=== PATIENT | male | born 1960 | race Caucasian/White ===

== ENCOUNTER → 2017-07-16 06:13 | Outpatient (CLI) | payer OTHER, SELFPAY ==
[2017-07-16 09:45] LABS: Anion Gap 9 (5-15); BUN 20 mg/dL (7-18); BUN/Creat Ratio 16.7 RATIO (10-20); Calcium,Total 8.6 mg/dL (8.5-10.1); Chloride 108 mmol/L (98-107); Cholesterol 205 mg/dL (200); EST Glomerular Filtration Rate 66 mL/min (>60); Est Glom Filt Rate - Afr Amer 80 mL/min (>60); Glucose 136 mg/dL (74-106); High Density Lipoprotein 41 mg/dL; Sodium Level 143 mmol/L (136-145); Triglycerides 169 mg/dL; Very Low Density Lipoprotein 34 mg/dL (5-40)
== END ==
PROVIDERS: Family Provider Family Medicine; PCP Family Medicine; Visit Provider Family Medicine
DX: I10 Essential (primary) hypertension (principal)
CPT/HCPCS: 36415; 80048; 80061

== ENCOUNTER → 2018-02-14 06:12 | Outpatient (CLI) | payer OTHER, SELFPAY ==
--- NOTE | 2018-02-14 06:15 | RAD_ITS ---
STUDY: X-RAY - ORBITS REASON FOR EXAM: Male, 57 years old. This study is being performed as a clearance examination for exclusion of orbital metal, prior to the performance of an MRI examination. TECHNIQUE: 2 view(s) of the orbits were obtained. COMPARISON: None. FINDINGS: Normal bilateral orbits without a metallic orbital foreign body. Normal visualized facial bones. Normal paranasal sinuses. The soft tissue structures are unremarkable. RAD/Orbits for Foreign Body IMPRESSION: No demonstrated metallic orbital foreign body. The patient is cleared for an MRI examination. Electronically Signed: Reese Mcgill MD at 7:09 EST Tel , Service support ,
--- NOTE | 2018-02-14 06:42 | MRI_ITS ---
STUDY: MRI UPPER EXTREMITY RIGHT HUMERUS WITHOUT CONTRAST REASON FOR EXAM: Right arm weakness and pain, attention biceps. TECHNIQUE: Standardized fat and water weighted pulse sequences were obtained in all 3 orthogonal planes. COMPARISON: Radiographs 01/17/2014. FINDINGS: Normal subcutis adipose space. There is no demonstrated solid, cystic, or lipomatous mass within the subcutaneous adipose space. Normal visualized muscles and fascia. Normal visualized neurovascular bundles. Normal humerus. Although the [id number] is not optimal for evaluation of the shoulder, there is a suspected full-thickness tear of the supraspinatus tendon (inversion recovery coronal images 11-13). There is also nonvisualization of the long biceps tendon and therefore suspected torn. The distal biceps tendon at the radial tuberosity insertion is not included in the [id number]. There are cysts of the right kidney (inversion recovery coronal images 12-16), the largest measuring 2.6 cm in greatest dimension. MRI/Upper Ext/No Jt/ wo IMPRESSION: Suspected tear of the long biceps tendon. Suspected tear of the supraspinatus tendon. Right renal cysts. Electronically Signed: Mauro Yip MD at 8:48 EST Tel , Service support ,
== END ==
PROVIDERS: Family Provider Family Medicine; PCP Family Medicine; Referring Provider Family Medicine; Visit Provider Family Medicine
DX: R29.898 Other symptoms and signs involving the musculoskeletal system (principal)
CPT/HCPCS: 70030; 73218

== ENCOUNTER → 2018-04-06 11:00 | Outpatient (CLI) | payer OTHER, SELFPAY ==
--- NOTE | 2018-04-06 11:09 | MRI_ITS ---
STUDY: MRI RIGHT SHOULDER REASON FOR EXAM: Pain from elbow to shoulder and decreased strength. TECHNIQUE: Standardized fat and water weighted pulse sequences were obtained in all 3 orthogonal planes. COMPARISON: Radiographs 01/17/2014. FINDINGS: There is supraspinatus tendinosis and a small full-thickness tear of the distal anterior supraspinatus tendon (T2 coronal image 14) measuring 0.7 to 0.8 cm in length and width. There is mild infraspinatus tendinosis (T2 coronal image 6) without discrete tendon tear. There is attenuation of the distal subscapularis tendon (proton-density axial images 15, 16). Normal teres minor tendon. There is very mild atrophy with very mild partial fat replacement of the distal supraspinatus and infraspinatus muscles (T2 sagittal images 5-7). Normal subscapularis muscle. Normal teres minor muscle. Normal glenohumeral articulation. Normal humeral head and visualized proximal humerus. There is suspected tear with nonvisualization of the intracapsular long biceps tendon. Normal labrum. Normal capsulo- ligamentous complex. There is acromioclavicular arthrosis without undersurface osteophytes (T2 sagittal image 10). There is a Type II morphology (curved), with a neutral orientation. There is a trace of subacromial-subdeltoid bursal fluid. Normal visualized coracohumeral and coracoacromial ligaments. Normal deltoid muscle. Normal trapezius muscle. MRI/Upper Ext Joint Only(Routine) IMPRESSION: Small full-thickness tear and tendinosis of the supraspinatus tendon. Attenuation of the subscapularis tendon. Mild infraspinatus tendinosis. Very mild atrophy of the supraspinatus and infraspinatus muscles. Suspected tear with nonvisualization of the intracapsular long biceps tendon. Acromioclavicular arthrosis. Electronically Signed: Mauro Yip MD at 12:21 EST Tel , Service support ,
== END ==
PROVIDERS: Family Provider Family Medicine; PCP Family Medicine; Referring Provider Orthopaedic Surgery; Visit Provider Orthopaedic Surgery
DX: M75.51 Bursitis of right shoulder (principal)
CPT/HCPCS: 73221

== ENCOUNTER → 2018-07-25 | Outpatient (CLI) | payer OTHER, SELFPAY ==
[2018-07-25 10:32] LABS: AST(SGOT) 15 U/L (15-37); Alanine Aminotransfer ALT/SGPT 27 U/L (16-61); Albumin, Serum 3.7 g/dL (3.2-5.0); Alkaline Phosphatase 55 U/L (45-117); Anion Gap 6 (5-15); BUN 14 mg/dL (7-18); BUN/Creat Ratio 12.5 RATIO (10-20); Bilirubin, Direct 0.16 mg/dL (0.00-0.30); Chloride 105 mmol/L (98-107); Cholesterol 212 mg/dL (200); Creatinine, Serum 1.12 mg/dL (0.70-1.30); EST Glomerular Filtration Rate 71 mL/min (>60); Est Glom Filt Rate - Afr Amer 86 mL/min (>60); Globulin 4.1 g/dL (2.2-4.2); Glucose 133 mg/dL (74-106); High Density Lipoprotein 45 mg/dL; Potassium 4.2 mmol/L (3.5-5.1); Protein, Total 7.8 g/dL (6.4-8.2); Sodium Level 139 mmol/L (136-145); Triglycerides 183 mg/dL; Very Low Density Lipoprotein 37 mg/dL (5-40)
[2018-07-25 10:42] LABS: Microalbumin:Creatinine Ratio 6.5 mg/g CRE (<30 mg/g CRE)
== END | disposition home or self-care (01) ==
LOC: MTLAB 07:18
PROVIDERS: Family Provider Family Medicine; PCP Family Medicine; Referring Provider Family Medicine; Visit Provider Family Medicine
DX: E11.9 Type 2 diabetes mellitus without complications (principal)
CPT/HCPCS: 36415; 80048; 80061; 80076; 82043; 82570

== ENCOUNTER → 2020-07-18 16:26 | Outpatient (CLI) | payer OTHER, SELFPAY ==
--- NOTE | 2020-07-18 16:30 | RAD_ITS ---
STUDY: X-RAY - LEFT SHOULDER REASON FOR EXAM: Male, 59 years old. LEFT SHOULDER PAIN TECHNIQUE: 4 view(s) of the shoulder. COMPARISON: None. FINDINGS: Normal glenohumeral articulation. There is degenerative arthrosis of the acromioclavicular joint without inferior osseous spur formation. Normal acromion. Normal humeral head and visualized proximal humerus. The soft tissue structures are unremarkable. Normal visualized pulmonary apex. RAD/Shoulder min 2 Views IMPRESSION: No acute findings Electronically Signed: Abdiel Owens DO at 22:38 EDT Tel , Service support ,
== END ==
PROVIDERS: PCP Family Medicine; Referring Provider Nurse Practitioner Family; Visit Provider Nurse Practitioner Family
DX: M25.512 Pain in left shoulder (principal)
CPT/HCPCS: 73030

== ENCOUNTER → 2020-07-25 11:04 | Outpatient (CLI) | payer OTHER, SELFPAY ==
[2020-07-22 08:07] VITALS: BMI 33.5
--- NOTE | 2020-07-25 11:15 | MRI_ITS ---
STUDY: MRI LEFT SHOULDER REASON FOR EXAM: Left shoulder pain, limited range of motion and limited strength after lifting injury 1 week ago. TECHNIQUE: Standardized fat and water weighted pulse sequences were obtained in all 3 orthogonal planes. COMPARISON: Radiographs 07/28/2020. FINDINGS: There is supraspinatus tendinosis (T2 coronal images 6-8) without discrete tendon tear. Normal infraspinatus tendon. There is an undersurface/intrasubstance partial-thickness tear of the distal superior subscapularis tendon with medial dislocation of the proximal extracapsular long biceps tendon (proton-density axial images 12, 13). Normal teres minor tendon. Normal supraspinatus muscle. Normal infraspinatus muscle. Normal subscapularis muscle. There is mild atrophy with mild partial fat replacement of the teres minor muscle (T2 sagittal images 1-5). There is a very small glenohumeral joint effusion. There is a small cyst in the greater tuberosity. Normal biceps labral complex. There is mild tendinosis of the intracapsular/proximal extracapsular long biceps tendon (proton-density coronal images 5, 6). There is bicipital tenosynovitis (proton-density axial images 16-20). Normal labrum. Normal capsulo- ligamentous complex. There is acromioclavicular arthrosis with mild hypertrophic changes effacing the subacromial fat (T2 sagittal image 8). There is a Type II morphology (curved), with a neutral orientation. There is subacromial-subdeltoid bursal fluid. Normal visualized coracohumeral and coracoacromial ligaments. Normal deltoid muscle. Normal trapezius muscle. MRI/Upper Ext Joint Only(Routine) IMPRESSION: Undersurface/intrasubstance partial-thickness tear of the distal superior subscapularis tendon with medial dislocation of the proximal extracapsular long biceps tendon. Supraspinatus tendinosis. Mild atrophy of the teres minor muscle. Mild tendinosis of the long biceps tendon, and bicipital tenosynovitis. Acromioclavicular arthrosis. Subacromial-subdeltoid bursitis. Very small glenohumeral joint effusion. Electronically Signed: Mauro Yip MD at 13:09 EDT Tel , Service support ,
== END ==
PROVIDERS: PCP Family Medicine; Referring Provider Nurse Practitioner Family; Visit Provider Nurse Practitioner Family
DX: M25.512 Pain in left shoulder (principal)
CPT/HCPCS: 73221

== ENCOUNTER 2020-08-20 17:30 | Outpatient (RCR) | payer OTHER, SELFPAY ==
--- NOTE | 2020-08-09 09:41 | HP.PTEVAL_ITS ---
Patient's Visit Information CARA PEOPLES is a 59 year old M referred to Physical Therapy by Dr. Glenn Grimm DO with a diagnosis of BICEPS SUBLUXATION, TENSOYNVITIS, SUBSCAPUALRS YEAR. Date of Evaluation: 08/09/20 Physical Therapist: Ryan Call, PT, Cert MDT, OCS - Visit Plan Frequency: 2x /Week Duration: 4 Weeks Plan: PT INTERVENTIONS RTC/SCAPULAR STRENGTHENING,ROM POSTURAL EX'S AND MODALTIES - Subjective This 59 y/o male presents to physical therapy subscapularis tear. Patient injured right shoulder lifting slab of concrete about 3 weeks ago felt a pop. Patient pain presistanted thus seen family DR then recommended Orthopedic consult and PT. Patient had MRI showed subscapularis tear. Patient pain located anterior to biceps . Patient pain worse with lifting OH and move to side ,reaching behind back and unable to lift any weight affects affects ADLS' and housework tasks. Patient sleeps in chair unable to be in bed. Denies parathesia/tingling. Patient takes pain MEDS. 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 SOCAIL: - Pain Left Shoulder Pain Intensity (Out of 10): 3 Pain Intensity Range: 10 - Objective POSTURE: mild foward posture ,rounded shoulders head foward. NEURO: intact. PALPITATION: tender AC. AROM: shoulder flexion 110 degrees ,abduction 110 degrees ,ER 80 degrees ,IR L4. PROM: shoulder flexion 160 degree,abduction 160 ,ER 80 degrees pain at ERP. MMT: subscapularis 4-/5,supraspinatus 4-/5 mild pain,infraspinatus ,deltoid 4-/5 - Special Tests L Shoulder Supine Impingement Test - RC Tear: Negative L Shoulder Lift Off Test - Subscapular Tear: Negative L Shoulder Drop Sign - IS Test: Negative L Shoulder Empty Can - SS: Positive L Shoulder Belly Press - SupScap: Negative L Shoulder Neer - Impingement: Positive L Shoulder [place] Casa - Impingement: Positive L Shoulder Shrug Sign - OA/Adhesive Capsulitis: Negative - Goals Goal 1:: I with HEP. Goal Time Frame: 4-6 Weeks Goal 2:: Patient to decrease pain 50% or > to improve function and job demands. Goal Time Frame: 4-6 Weeks Goal 3:: Patient to increase AROM shoulder flexion 150 degrees,150 degrees ,ER 90 and IR L2 to improve function Goal Time Frame: 4-6 Weeks Goal 4:: Patient to increase strength right RTC and deltoid 4/5 to improve function Goal Time Frame: 4-6 Weeks Goal 5:: Patient to improve quick dash by 5 points or > to improve function Goal Time Frame: 4-6 Weeks - Rehabilitation Potential Physical Therapy Diagnosis: This patient has tear subscapularus tear with pain ,decrease ROM ,strength impairs function and ADL'S/job demands thus will benifit from skilled PT. Rehabilitation Potential: Good - Anticipated Interventions Patient/Client Instruction: Educate patient on: Condition, Plan of Care For the Purpose of:: To decrease pain, To increase ROM, To improve muscle performance and motor function, To improve ability to perform ADL's, To increase tolerance to activity/condition/position, To improve performance and independence with ADL's, To improve ability of physical actions for home/community/work/leisure, To improve health of tissue, To decrease soft tissue restriction, To increase flexibility/ROM, To improve endurance Therapeutic Exercise to Include: Strength training, Postural training, Flexibilty training, Active ROM Comment: RTC/SCAPULAR For the Purpose of:: To decrease pain, To increase ROM, To improve muscle performance and motor function, To improve ability to perform ADL's, To increase tolerance to activity/condition/position, To improve performance and independence with ADL's, To improve ability of physical actions for steph e/community/work/leisure, To improve health of tissue, To decrease soft tissue restriction, To increase flexibility/ROM, To reduce risk of recurrence TENS: Yes IF ES: Yes Cryotherapy (ice pack, ice massage): Yes Thermo therapy (hot pack): Yes Ultrasound (thermal/non thermal): Yes For the Purpose of:: To decrease pain, To increase ROM, To improve nutrient delivery to tissue, To increase oxygenation perfusion, To improve health of tissue, To decrease soft tissue restriction Thank you for the opportunity to evaluate your patient. For Medicare and Medicare HMO plans, please review the plan of care and approve it. It will need to be FAXED BACK to us at [phone] for Medicare purposes. For Medicare only, by signing this I certify the plan of care. Please let me know if there are questions or concerns regarding this plan of care. Physician Signature: Date:
--- NOTE | 2021-01-10 13:06 | HP.PTDCNRP_ITS ---
CARA Patricia NATHENANDREE was seen in my office for initial evaluation on 08/09/20. The following Plan of Care was established for this patient: Initial Frequency: 2x /Week Initial Duration: 4 Weeks Patient/Client Instruction: Educate patient on: Condition, Plan of Care For the Purpose of:: To decrease pain, To increase ROM, To improve muscle performance and motor function, To improve ability to perform ADL's, To increase tolerance to activity/condition/position, To improve performance and independence with ADL's, To improve ability of physical actions for home/community/work/leisure, To improve health of tissue, To decrease soft tissue restriction, To increase flexibility/ROM, To improve endurance Therapeutic Exercise to Include: Strength training, Postural training, Flexibilty training, Active ROM For the Purpose of:: To decrease pain, To increase ROM, To improve muscle performance and motor function, To improve ability to perform ADL's, To increase tolerance to activity/condition/position, To improve performance and indepen dence with ADL's, To improve ability of physical actions for home/community/work/leisure, To improve health of tissue, To decrease soft tissue restriction, To increase flexibility/ROM, To reduce risk of recurrence TENS: Yes IF ES: Yes Cryotherapy (ice pack, ice massage): Yes Thermo therapy (hot pack): Yes Ultrasound (thermal/non thermal): Yes For the Purpose of:: To decrease pain, To increase ROM, To improve nutrient delivery to tissue, To increase oxygenation perfusion, To improve health of tissue, To decrease soft tissue restriction This patient was last seen in our office . Pertinent comments regarding their Physical therapy will appear below: Patient seen for PT for subscapularis tear ,subluxation for ROM/strengthening thus is d/c At this point I will be discontinuing this patient from physical therapy. I would be happy to see this patient again in the future if found appropriate by the physician. Thank you! Ryan Call, PT, Cert MDT, OCS Balance/Gait/Functional tests - Balance/Special Test Scores Quick DASH Score: 20.0000
== END 2020-08-20 19:00 | disposition home or self-care (01) ==
LOC: PT 17:30
PROVIDERS: PCP Family Medicine; Referring Provider Orthopaedic Surgery; Visit Provider Orthopaedic Surgery
DX: S46.819D Strain of other muscles, fascia and tendons at shoulder and upper arm level, unspecified arm, subsequent encounter (principal); X58.XXXD Exposure to other specified factors, subsequent encounter; M65.9 Synovitis and tenosynovitis, unspecified
CPT/HCPCS: 97110; 97162

== ENCOUNTER 2021-06-06 08:59 | Outpatient (CLI) | payer OTHER, SELFPAY ==
--- NOTE | 2021-06-06 09:03 | ART_ITS ---
Version 2 Reason For Study: Right foot ulcer, PVD Procedure A bilateral lower extremity continuous wave Doppler with analog waveform analysis,segmental pressures,and ankle brachial indexes without exercise. Left Segmental Pressures Left brachial= 145mmHg. Left posterior tibial artery = 206mmHg. Left dorsalis pedis artery = 189mmHg. Left digit = 154 mmHg. The left dorsalis pedis waveforms are triphasic. The left posterior tibial artery waveforms are triphasic. Right Segmental Pressures Right brachial= 151mmHg. Right posterior tibial artery = 210mmHg. Right dorsalis pedis artery = 179mmHg. Right digit = >254 mmHg. The right dorsalis pedis waveforms are triphasic. The right posterior tibial artery waveforms are triphasic. Indices The right ankle brachial index by the dorsalis pedis is 1.19. The right ankle brachial index by the posterior tibial artery is 1.39. The right digital-brachial index is NC. The left ankle brachial index by the dorsalis pedis is 1.25. The left ankle brachial index by the posterior tibial artery is 1.36. The left digital-brachial index is 1.02. . Rt digit pressure may be falsely elevated due to bandage on toe. VL/Lower Ext Art Exam w/o Exercis Interpretation Summary Triphasic Doppler waveforms are noted at ankle level bilaterally. Pulse-volume recordings appear satisfactory at all levels bilaterally, including low thigh, calf, ankle, and d igital levels. Resting ankle-brachial indices are normal bilaterally. The right digital-brachi al index could not be determined due to the non-compressibility of the vasculature at digital level o n the right. The left digital-brachial index is normal. There is evidence of arterial calcification at digital level on the right. Ther e is no evidence of significant arterial occlusive disease in the lower extremities bilaterally. Ordering Physician: Jasmin Jaime Referring Physician: Fernando Fu Performed By: Willinger, Yulia, RVT
== END 2021-06-06 23:59 | disposition home or self-care (01) ==
LOC: CVS 08:59
PROVIDERS: PCP Family Medicine; Referring Provider Podiatrist; Visit Provider Podiatrist
DX: I73.89 Other specified peripheral vascular diseases (principal); L97.512 Non-pressure chronic ulcer of other part of right foot with fat layer exposed; E11.42 Type 2 diabetes mellitus with diabetic polyneuropathy
CPT/HCPCS: 93923

== ENCOUNTER 2021-09-11 09:23 | Day surgery (SDC) | payer OTHER, SELFPAY ==
--- NOTE | 2021-09-03 06:27 | EKG12_ITS ---
Test Reason : PRE OP Blood Pressure : / mmHG Vent. Rate : 057 BPM Atrial Rate : 057 BPM P-R Int : 214 ms QRS Dur : 096 ms QT Int : 418 ms P-R-T Axes : 028 -10 043 degrees QTc Int : 406 ms Sinus bradycardia with 1st degree A-V block Otherwise normal ECG Confirmed by RADHA JEREZ, LOKI ([id number]), slot editor ARMANDO QUIROZ ([id number]) on 09/03/2021 1:26:27 PM Referred By: MONY Confirmed By:LOKI GARCIA MD
[2021-09-03 06:58] LABS: Hemoglobin 14.7 g/dL (13.0-16.5); Mean Corp Hgb Conc 33.4 g/dL (32-36); Mean Corpuscular Hgb 30.4 pg (27.0-32.0); Mean Corpuscular Volume 91.1 fL (80-94); Mean Platelet Vol. 9.5 fl (6.2-12.0); Platelet Count 283 K/mm3 (150-450); RBC Distribution Width CV 12.4 % (11.6-14.6); RBC Distribution Width SD 40.8 fl (35.1-43.9); Red Blood Count 4.83 M/mm3 (4.6-6.2); White Blood Count 7.2 K/mm3 (4.4-11.0)
[2021-09-03 07:31] LABS: Anion Gap 4 (5-15); BUN 23 mg/dL (7-18); Calcium,Total 9.2 mg/dL (8.5-10.1); Chloride 106 mmol/L (98-107); Creatinine, Serum 1.28 mg/dL (0.70-1.30); EST Glomerular Filtration Rate 61 mL/min (>60); Est Glom Filt Rate - Afr Amer 73 mL/min (>60); Glucose 177 mg/dL (74-106); Potassium 4.2 mmol/L (3.5-5.1); Sodium Level 137 mmol/L (136-145)
[2021-09-10 08:32] VITALS: BMI 34.0
--- NOTE | 2021-09-11 10:10 | PCM.HP.BLA ---
Documented by User: Dr. 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: No Is patient in pain?: No Allergies Wfnfbyd-EKC-RmR Reductase Inhibitor [Mtpaihm-Xdf-Tan Reductase Inhibitor] Allergy (Verified 07/21/21 07:58) Other Medications cholecalciferol (vitamin D3) 1,000 unit PO DAILY 02/26/14 [History Confirmed 07/21/21] metformin 1,000 mg PO BIDCM 02/26/14 [History Confirmed 07/21/21] ascorbate calcium (vitamin C) 500 mg tablet 500 mg PO DAILY 07/22/20 [History Confirmed 07/21/21] bupropion HCl 300 mg 24 hr tablet, extended release 300 mg PO QAM 07/22/20 [History Confirmed 07/21/21] multivitamin 1 tablet PO DAILY 07/22/20 [History Confirmed 07/21/21] omega-3 fatty acids 1,000 mg capsule 1,000 mg PO DAILY 07/22/20 [History Confirmed 07/21/21] calcium carbonate 600 mg calcium (1,500 mg) tablet 600 mg PO DAILY 07/21/21 [History Confirmed 07/21/21] diltiazem HCl 360 mg capsule,extended release 24 hr 240 mg PO DAILY cap 07/21/21 [History Confirmed 07/21/21] [facility] Medical History (Updated 07/21/21 @ 08:[address] Jimmy Mcmullen MD) DM type 2 (diabetes mellitus, type 2) HTN (hypertension) RLS (restless legs syndrome) Ruptured meckels diverticulum with sepsis Undescended testicle Surgical History (Updated 07/21/21 @ 07:55 by Missy Mcdonnell) History of gastric bypass History of nasal polypectomy History of testicular surgery History of tonsillectomy History of uvulectomy Family History Brother Cancer pancreatic cancer Father Diabetes Heart disease Hypertension Mother Hypertension Social History household members: spouse housing: house Smoking Status: Never smoker alcohol intake: current alcohol intake frequency: holidays/special occasions only what type of physical activity do you participate in: none do you feel safe at home: Yes HPI HPI HPI: CARA PEOPLES, is a 60 M who presents to the office today for surgical consultation regarding peripheral arterial occlusive disease. The patient is referred by Dr. Jasmin Jaime and a written copy of my surgical consult recommendations will return to her. The patient had a noninvasive study of his lower extremities on June 06, 2021 as noted below and does not demonstrate hemodynamically significant large vessel occlusive disease. 5 weeks the patient's had a nonhealing ulcer in the dorsum of his right great toe. He has some digital deformity bilaterally. This causes repetitive trauma to his toes. He states that this area has been more resistant to resolution. Looking back through [facility] records February 08, [address] the patient had a CT of the abdomen because of the left lower quadrant pain. Fatty change of the liver. Scattered atherosclerotic disease of the abdominal aorta but without aneurysm. He denies chest pain shortness of breath. Denies calf claudication. He admits to numbness of his forefeet distally. He does not check his blood sugars routinely. He thinks his most recent hemoglobin A1c was in the sevens. He has not seen his primary care physician Dr. Fernando Fu in a period of time. 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 Denies chest pain or shortness of breath. He denies any focal neurologic changes. June 06, 2021 Reason For Study: Right foot ulcer, PVD Procedure A bilateral lower extremity continuous wave Doppler with analog waveform analysis,segmental pressures,and ankle brachial indexes without exercise. Left Segmental Pressures Left brachial= 145mmHg. Left posterior tibial artery = 206mmHg. Left dorsalis pedis artery = 189mmHg. Left digit = 154 mmHg. The left dorsalis pedis waveforms are triphasic. The left posterior tibial artery waveforms are triphasic. Right Segmental Pressures Right brachial= 151mmHg. Right posterior tibial artery = 210mmHg. Right dorsalis pedis artery = 179mmHg. Right digit = >254 mmHg. The right dorsalis pedis waveforms are triphasic. The right posterior tibial artery waveforms are triphasic. Indices The right ankle brachial index by the dorsalis pedis is 1.19. The right ankle brachial index by the posterior tibial artery is 1.39. The right digital-brachial index is NC. The left ankle brachial index by the dorsalis pedis is 1.25. The left ankle brachial index by the posterior tibial artery is 1.36. The left digital-brachial index is 1.02. . Rt digit pressure may be falsely elevated due to bandage on toe. VL/Lower Ext Art Exam w/o Exercis Interpretation Summary Triphasic Doppler waveforms are noted at ankle level bilaterally. Pulse-volume recordings appear satisfactory at all levels bilaterally, including low thigh, calf, ankle, and digital levels. Resting ankle-brachial indices are normal bilaterally. The right digital-brachial index could not be determined due to the non-compressibility of the vasculature at digital level on the right. The left digital-brachial index is normal. There is evidence of arterial calcification at digital level on the right. There is no evidence of significant arterial occlusive disease in the lower extremities bilaterally. Ordering Physician: Jasmin Jaime Referring Physician: Fernando Fu Performed By: Yulia Hurtado RVT 06/06/21 1834Date Primitivo Joseph MD ROS General General: No weight change, appetite, fatigue, colon cancer, breast cancer or weakness HEENT HEENT: No difficulty swallowing, eye injury, eye surgery, swollen glands or hoarseness Endo Endocrine: Yes diabetes mellitus; No thyroid disease, thyroid cancer, Hair loss, heat intolerance or cold intolerance Skin Skin: No rash or changing moles Breast Breast: No left breast lump, right breast lump, nipple discharge, breast pain, abnormal mammogram, abnormal US or breast enlargement Musc Musculoskeletal: No back problems, arthritis, rheumatoid arthritis, gout or joint pain Cardio Cardiovascular: Yes high blood pressure; No murmur, pacemaker, heart disease, atrial fibrillation, heart attack, heart stent, palpitations, shortness of breat with exertion or chest pain Psych Psychiatric: Yes depression; No anxiety or hearing voices Resp Respiratory: No shortness of breath, No sleep apnea, No cough, No COPD, No asthma, No emphysema and No wheezing Gastro Gastrointestinal: No abdominal pain, No nausea or vomiting, No diarrhea, No constipation, No blood in stool, Yes acid reflux, No hemorrhoids, No ulcers, Yes gallbladder problem and No black,tarry stools Additional Details: History of gallstones without pain Shlomo Hematologic: No blood thinners, No blood disorders, No bleeding, No anemia and No blood clots Neuro Neurologic: No system reviewed and no additional complaints, except as documented, No as per HPI, No abnormal gait, No abnormal hearing, No abnormal movements, No abnormal speech, No behavioral changes, No burning sensations, No confusion, No convulsions, No disequilibrium, No dizziness, No localized weakness, No frequent falls, No headache(s), No lack of coordination, No loss of vision, No memory loss, Yes numbness, No other visual disturbances, No radicular pain, No restless legs, No sensory deficit, No syncope, Yes tingling, No tremor(s), No weakness and No other Exam Const General: cooperative, comfortable and no acute distress Nutritional Appearance: obese Orientation: alert, awake and oriented x3 HENMT Head: normal to inspection Eyes General: appearance normal, both eyes and all related structures Neck Neck: normal visual inspection Carotids: normal carotid upstroke and no bruits Chest Chest palpation & inspection: normal inspection of the chest Resp Effort & Inspection: normal respiratory effort Auscultation: clear to auscultation bilaterally Cardio Rate: regular rate Rhythm: regular rhythm Other: Bilateral radials 3+. Bilateral brachials 3+. Bilateral carotids 3+. No bruits Bilateral femorals 3+. Bilateral popliteals 3+. Bilateral DPs not palpable. Bilateral PTs 2-3+ GI Other: Soft, nontender, overweight, I cannot palpate the abdominal aorta. No bruit Musc Cervical Spine: normal cervical lordosis Skin Other: Dorsum right great toe DIP level has 3 punctate openings. There is hypertrophic scarring some erythema but no drainage Neuro Other: Diminished light touch sensation toes and forefoot Extrem Other: Bilateral elevation pallor and dependent rubor most noted at the digital level right greater than left Psych Appearance: grossly normal Assessment and Plan Assessment and Plan (1) PAOD (peripheral arterial occlusive disease): Status: Acute (2) Neuropathy: Status: Acute Plan - Dr. Jimmy Mcmullen MD: 60-year-old gentleman who has type 2 diabetes. States he does not routinely see his primary care physician. He now has a very slowly healing right dorsal great toe ulceration. This is likely complicated by neuropathy as well as ongoing pressure injury deformity of the toe and his foot apparel. There is some issue with medical compliance as far as seeing his physician and checking his blood sugars It is clear that the patient may have difficulty in resolving these chronic ulcerations. I do believe that it is reasonable to offer him a abdominal pelvic right lower extremity arteriogram retrograde access left common femoral artery with very careful inspection of the right tibialis anterior with hopes that endovascular intervention could be offered. As per protocol we would need to check renal function prior. He is aware of the technique, benefit, risk of alternatives. I cannot palpate his dorsalis pedis bilaterally. This may be secondary to calcification. He has had an opportunity to ask and have questions answered. He will check with his Rosemarie. He will recontact us as to how he would like us to proceed. I suspect that he might be a candidate for future corrective toe surgery. I have encouraged him to be more compliant with his primary care follow-up and establish a routine appointment with Dr. Fernando Fu. I appreciate the opportunity of assisting with the surgical care Copy: Dr. Fernando Fu and Dr.Jeanna Addison Mcmullen M.D., F.A.C.S. The patient states that he still has lack of complete healing of his right lower extremity wound. Because it is scabbed over he does not demonstrate concern. He has had an opportunity to ask and have questions answered. We will proceed as noted. Jimmy Mcmullen M.D., F.A.C.S. Documented by User: Kati CHRISTIANSON PA-C 09/11/21 10:26 History and Physical Date of Admission: 09/11/21 Patient is a 60 y/o M I am following for peripheral arterial occlusive disease and ulceration of right toe ulceration. He presents for an update history and physical. He denies any recent hospitalizations or illnesses since his last visit. He notes that the ulcerations of his right toe has healed. He denies any previous complications or side effects from anesthesia. Patient's previous history per Dr. 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 Required: No Is patient in pain?: No Allergies Gmdcter-GHI-RgE Reductase Inhibitor [Immbiob-Nzc-Rjd Reductase Inhibitor] Allergy (Verified 07/21/21 07:58) Other Medications cholecalciferol (vitamin D3) 1,000 unit PO DAILY 02/26/14 [History Confirmed 07/21/21] metformin 1,000 mg PO BIDCM 02/26/14 [History Confirmed 07/21/21] ascorbate calcium (vitamin C) 500 mg tablet 500 mg PO DAILY 07/22/20 [History Confirmed 07/21/21] bupropion HCl 300 mg 24 hr tablet, extended release 300 mg PO QAM 07/22/20 [History Confirmed 07/21/21] multivitamin 1 tablet PO DAILY 07/22/20 [History Confirmed 07/21/21] omega-3 fatty acids 1,000 mg capsule 1,000 mg PO DAILY 07/22/20 [History Confirmed 07/21/21] calcium carbonate 600 mg calcium (1,500 mg) tablet 600 mg PO DAILY 07/21/21 [History Confirmed 07/21/21] diltiazem HCl 360 mg capsule,extended release 24 hr 240 mg PO DAILY cap 07/21/21 [History Confirmed 07/21/21] [facility] Medical History (Updated 07/21/21 @ 08:[address] Jimmy Mcmullen MD) DM type 2 (diabetes mellitus, type 2) HTN (hypertension) RLS (restless legs syndrome) Ruptured meckels diverticulum with sepsis Undescended testicle Surgical History (Updated 07/21/21 @ 07:55 by Missy Mcdonnell) History of gastric bypass History of nasal polypectomy History of testicular surgery History of tonsillectomy History of uvulectomy Family History Brother Cancer pancreatic cancer Father Diabetes Heart disease Hypertension Mother Hypertension Social History household members: spouse housing: house Smoking Status: Never smoker alcohol intake: current alcohol intake frequency: holidays/special occasions only what type of physical activity do you participate in: none do you feel safe at home: Yes HPI HPI HPI: CARA PEOPLES, is a 60 M who presents to the office today for surgical consultation regarding peripheral arterial occlusive disease. The patient is referred by Dr. Jasmin Jaime and a written copy of my surgical consult recommendations will return to her. The patient had a noninvasive study of his lower extremities on June 06, 2021 as noted below and does not demonstrate hemodynamically significant large vessel occlusive disease. 5 weeks the patient's had a nonhealing ulcer in the dorsum of his right great toe. He has some digital deformity bilaterally. This causes repetitive trauma to his toes. He states that this area has been more resistant to resolution. Looking back through [facility] records February 08, [address] the patient had a CT of the abdomen because of the left lower quadrant pain. Fatty change of the liver. Scattered atherosclerotic disease of the abdominal aorta but without aneurysm. He denies chest pain shortness of breath. Denies calf claudication. He admits to numbness of his forefeet distally. He does not check his blood sugars routinely. He thinks his most recent hemoglobin A1c was in the sevens. He has not seen his primary care physician Dr. Fernando Fu in a period of time. 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 Denies chest pain or shortness of breath. He denies any focal neurologic changes. June 06, 2021 Reason For Study: Right foot ulcer, PVD Procedure A bilateral lower extremity continuous wave Doppler with analog waveform analysis,segmental pressures,and ankle brachial indexes without exercise. Left Segmental Pressures Left brachial= 145mmHg. Left posterior tibial artery = 206mmHg. Left dorsalis pedis artery = 189mmHg. Left digit = 154 mmHg. The left dorsalis pedis waveforms are triphasic. The left posterior tibial artery waveforms are triphasic. Right Segmental Pressures Right brachial= 151mmHg. Right posterior tibial artery = 210mmHg. Right dorsalis pedis artery = 179mmHg. Right digit = >254 mmHg. The right dorsalis pedis waveforms are triphasic. The right posterior tibial artery waveforms are triphasic. Indices The right ankle brachial index by the dorsalis pedis is 1.19. The right ankle brachial index by the posterior tibial artery is 1.39. The right digital-brachial index is NC. The left ankle brachial index by the dorsalis pedis is 1.25. The left ankle brachial index by the posterior tibial artery is 1.36. The left digital-brachial index is 1.02. . Rt digit pressure may be falsely elevated due to bandage on toe. VL/Lower Ext Art Exam w/o Exercis Interpretation Summary Triphasic Doppler waveforms are noted at ankle level bilaterally. Pulse-volume recordings appear satisfactory at all levels bilaterally, including low thigh, calf, ankle, and digital levels. Resting ankle-brachial indices are normal bilaterally. The right digital-brachial index could not be determined due to the non-compressibility of the vasculature at digital level on the right. The left digital-brachial index is normal. There is evidence of arterial calcification at digital level on the right. There is no evidence of significant arterial occlusive disease in the lower extremities bilaterally. Ordering Physician: Jasmin Jaime Referring Physician: Fernando Fu Performed By: Yulia Hurtado RVT 06/06/21 1834Date Primitivo Joseph MD ROS General General: No weight change, appetite, fatigue, colon cancer, breast cancer or weakness HEENT HEENT: No difficulty swallowing, eye injury, eye surgery, swollen glands or hoarseness Endo Endocrine: Yes diabetes mellitus; No thyroid disease, thyroid cancer, Hair loss, heat intolerance or cold intolerance Skin Skin: No rash or changing moles Breast Breast: No left breast lump, right breast lump, nipple discharge, breast pain, abnormal mammogram, abnormal US or breast enlargement Musc Musculoskeletal: No back problems, arthritis, rheumatoid arthritis, gout or joint pain Cardio Cardiovascular: Yes high blood pressure; No murmur, pacemaker, heart disease, atrial fibrillation, heart attack, heart stent, palpitations, shortness of breat with exertion or chest pain Psych Psychiatric: Yes depression; No anxiety or hearing voices Resp Respiratory: No shortness of breath, No sleep apnea, No cough, No COPD, No asthma, No emphysema and No wheezing Gastro Gastrointestinal: No abdominal pain, No nausea or vomiting, No diarrhea, No constipation, No blood in stool, Yes acid reflux, No hemorrhoids, No ulcers, Yes gallbladder problem and No black,tarry stools Additional Details: History of gallstones without pain Shlomo Hematologic: No blood thinners, No blood disorders, No bleeding, No anemia and No blood clots Neuro Neurologic: No system reviewed and no additional complaints, except as documented, No as per HPI, No abnormal gait, No abnormal hearing, No abnormal movements, No abnormal speech, No behavioral changes, No burning sensations, No confusion, No convulsions, No disequilibrium, No dizziness, No localized weakness, No frequent falls, No headache(s), No lack of coordination, No loss of vision, No memory loss, Yes numbness, No other visual disturbances, No radicular pain, No restless legs, No sensory deficit, No syncope, Yes tingling, No tremor(s), No weakness and No other Exam Const General: cooperative, comfortable and no acute distress Nutritional Appearance: obese Orientation: alert, awake and oriented x3 HENMT Head: normal to inspection Eyes General: appearance normal, both eyes and all related structures Neck Neck: normal visual inspection Carotids: normal carotid upstroke and no bruits Chest Chest palpation & inspection: normal inspection of the chest Resp Effort & Inspection: normal respiratory effort Auscultation: clear to auscultation bilaterally Cardio Rate: regular rate Rhythm: regular rhythm Other: Bilateral radials 3+. Bilateral brachials 3+. Bilateral carotids 3+. No bruits Bilateral femorals 3+. Bilateral popliteals 3+. Bilateral DPs not palpable. Bilateral PTs 2-3+ GI Other: Soft, nontender, overweight. No bruit Musc Cervical Spine: normal cervical lordosis Skin Other: Dorsum right great toe healed. Neuro Other: Diminished light touch sensation toes and forefoot Extrem Other: dependent rubor Psych Appearance: grossly normal Assessment & Plan Assessment/Plan (1) PAOD (peripheral arterial occlusive disease): PLAN: Dr. Mcmullen will polan to perform an abdominal pelvic right lower extremity arteriogram retrograde access left common femoral artery with inspection of the right tibialis anterior. Procedure details, risks and benefits have been reviewed. Patient and his have had the opportunity to ask and have questions answered. Patient verbally understands and agrees with the plan. Charges/Coding Visit Charges Inpatient E&M: 47465 Init Hosp L1 (No charge update H&P)
--- NOTE | 2021-09-11 11:33 | OP.PCM_ITS ---
Problems Associated Problem List Diagnoses (1) PAOD (peripheral arterial occlusive disease): Report of Operation Date of Procedure: 09/11/21 Pre-Operative Diagnosis: Great toe digital ulceration Post-Operative Diagnosis: Same Surgery/Procedure Performed:: Abdominal pelvic right lower extremity arteriogram Description of Surgical Findings:: Timeout informed consent was obtained. 60-y ear-old gentleman was taken to the special procedure lab placed on the table. Bilateral groins were sterilely prepped and draped. He received 50 mcg of fentanyl and 2 mg of Versed is intravenous sedation. Ultrasound was used to identify the left common femoral artery 2% lidocaine was instilled under ultrasound guidance micropuncture needle inserted under ultrasound guidance by puncture wire inserted micropuncture sheath inserted an 035 J-wire is inserted a 5 Slovenian short sheath was inserted and used then using an 035 angled Glidewire 5 Slovenian universal flush catheter was placed into the distal abdominal aorta. 15 cc a second 10 cc of Visipaque diluted contrast was used. Then access was gained to the right iliac system and using the Glidewire the flush catheter was advanced to the proximal right superficial femoral artery. Static views of the right lower extremity were obtained. The flush catheter was then advanced to approximately the mid thigh. Further views of the right lower extremity were obtained. The patient tolerated the procedure well. The catheter was removed over a wire. Sheath was removed by deploying a minx device. That was successful with good hemostasis. No apparent complication blood loss was minimal he tolerated procedure well was taken to the recovery room in satisfactory addition without apparent complication. Images demonstrate a patent distal abdominal aorta bilateral, iliacs bilateral internal iliacs. Bilateral common femorals are patent. The right common femoral profundofemoral superficial femoral patent throughout the right popliteal is patent. The right posterior tibial is the very dominant vessel all the way past the ankle with good dominant medial plantar flow with notably poor visualization of the digital vessels. The anterior tibial artery is patent though appears to be natively much smaller than the posterior tibial and after it crosses the ankle mortise filling of the distal dorsalis pedis and digital vessels was faint. The right peroneal is patent. There is no evidence of any focal large vessel occlusive disease of the right lower extremity. The patient is noted to have poor digital flow. Impression is one of distal small vessel disease not surgically treatable. Contrast utilized 30 cc Surgeon: Jimmy Mcmullen Type of Anesthesia: IV Sedation and Local
== END 2021-09-11 14:15 | disposition home or self-care (01) ==
PROVIDERS: PCP Family Medicine; Referring Provider Surgery; Visit Provider Surgery
DX: E11.51 Type 2 diabetes mellitus with diabetic peripheral angiopathy without gangrene (principal); E11.621 Type 2 diabetes mellitus with foot ulcer; L97.519 Non-pressure chronic ulcer of other part of right foot with unspecified severity; E11.40 Type 2 diabetes mellitus with diabetic neuropathy, unspecified; K76.0 Fatty (change of) liver, not elsewhere classified; I10 Essential (primary) hypertension; Z79.84 Long term (current) use of oral hypoglycemic drugs; Z98.84 Bariatric surgery status
CPT/HCPCS: 36200; 36245; 36415; 75625; 75630; 75710; 76937; 80048; 85027; 93005; 99152; 99153; C1760; J7030; Q9967; C1769

== ENCOUNTER 2021-10-12 10:00 | Inpatient (IN) | payer OTHER, SELFPAY ==
[2021-10-12 10:01] VITALS: BP 120/91; PULSE 91; RESP 16; TEMP 36.2; O2SAT 97; BMI 30.7
--- NOTE | 2021-10-12 10:25 | RAD_ITS ---
STUDY: X-RAY - RIGHT FOOT CLINICAL: Male, 60 years old. Infection TECHNIQUE: 3 view(s) of the foot. COMPARISON: 08/13/2015 right ankle images FINDINGS: There is an enthesophyte involving the posterior superior calcaneus at the site of insertion of the Achilles tendon. There are degenerative changes of the midfoot. Normal metatarsi. There is degenerative arthrosis of the metatarsophalangeal joint of the hallux . There is degenerative arthrosis of the interphalangeal joint of the great toe. Normal phalanges of the great toe. There is diffuse soft tissue swelling of the great toe. Normal second through fifth metatarsophalangeal joints. There are degenerative changes of the interphalangeal joints of the lesser toes. The soft tissue structures are unremarkable. RAD/Foot min 3 Views IMPRESSION: Degenerative changes. Electronically Signed: Laxmi Luque MD at 11:32 EDT ,
--- NOTE | 2021-10-12 10:25 | VDLE_ITS ---
Reason For Study: Swelling RIGHT GSV is normal. CFV is compressible, spontaneous, phasic, competent and demonstrates normal augmentation. FV is compressible, spontaneous, phasic, competent and demonstrates normal augmentation. POP V is compressible, spontaneous, phasic, competent and demonstrates normal augmentation. T/P Trunk is compressible. PTV is compressible. RT PerV is compressible. Procedure This is a venous duplex using B-mode, color flow and spectral Doppler. Exam performed portable in ED. A preliminary report was called and/or faxed to Dr. Polk. VL/Venous Duplex US, Unilateral Interpretation Summary There is no evidence of right lower extremity deep vein thrombosis. Right great saphenous vein appears patent and compressible segmentally. Ordering Physician: Jamia Polk Referring Physician: Fernando Fu Performed By: Tatiana Brand, BRANDAN, RVT
--- NOTE | 2021-10-12 10:28 | EDS_ITS ---
HPI History of Present Illness Chief Complaint: Cellulitis Detail of Chief Complaint: Right great toe infection Informant: patient Onset/Context/Timing Onset: - (Worsened over the last 3 days) Current Severity: Moderate Maximum Severity: Moderate Narrative Narrative: Patient presents secondary to right great toe infection. He is a diabetic and has neuropathy. He has had a wound on the right great toe that he has been following with Dr. Jaime for. states it was actually healed fairly well. He underwent a procedure with Dr. Mcmullen secondary to peripheral artery disease. There was no vessel amenable to stents. Over the last 2-1/2 days patient's right great toe wound has greatly worsened. He initially had lymphangitic streaking and now has more generalized redness on the foot with toe swelling. He has not noticed any pus draining from the wound. He had a temperature last night of 100.4 after taking Tylenol. [facility] Medical History DM type 2 (diabetes mellitus, type 2) HTN (hypertension) RLS (restless legs syndrome) Ruptured meckels diverticulum with sepsis Undescended testicle Home Medications cholecalciferol (vitamin D3) 25 mcg (1,000 unit) tablet 1,000 unit PO DAILY 02/26/14 [History Last Taken Unknown] metformin 1,000 mg tablet 1,000 mg PO BIDCM 02/26/14 [History Last Taken 09/10/21] ascorbate calcium (vitamin C) 500 mg tablet 500 mg PO DAILY 07/22/20 [History Last Taken Unknown] bupropion HCl 300 mg 24 hr tablet, extended release (Wellbutrin XL) 300 mg PO QAM 07/22/20 [History Last Taken Unknown] multivitamin (Multiple Vitamins) 1 tablet PO DAILY 07/22/20 [History Last Taken 09/11/21] omega-3 fatty acids 1,000 mg capsule (Fish Oil Concentrate) 1,000 mg PO DAILY 07/22/20 [History Last Taken Unknown] calcium carbonate 600 mg calcium (1,500 mg) tablet 600 mg PO DAILY 07/21/21 [History Last Taken Unknown] diltiazem HCl 360 mg capsule,extended release 24 hr 240 mg PO DAILY 07/21/21 [History Last Taken 09/10/21] pentoxifylline 400 mg tablet,extended release 400 mg PO TID #270 tabs 09/11/21 [Rx Last Taken Unknown] Allergy/AdvReac Type Severity Reaction Status Date / Time Xgxghfn-Khh-Qbc Reductase Allergy Other Verified 10/12/21 10:03 Inhibitor Family History Brother Cancer pancreatic cancer Father Diabetes Heart disease Hypertension Mother Hypertension Surgical History History of angioplasty of peripheral vessel History of gastric bypass History of nasal polypectomy History of testicular surgery History of tonsillectomy History of uvulectomy Social History household members: spouse housing: house Smoking Status: Never smoker alcohol intake: current alcohol intake frequency: holidays/special occasions only what type of physical activity do you participate in: none do you feel safe at home: Yes ROS ROS ED Constitutional Constitutional ED: Reports fever(s); Denies chills Eyes Eyes: Denies change in vision or discharge from eye(s) ENT ENT ED: Denies discharge from eye(s), rhinorrhea or sore throat Cardiovascular Cardiovascular: Denies chest pain or palpitations Respiratory/Chest Respiratory/Chest: Denies cough or dyspnea Gastrointestinal Gastrointestinal: Denies abdominal pain, diarrhea, nausea or vomiting Genitourinary Genitourinary ED: Denies difficulty urinating or dysuria Musculoskeletal Musculoskeletal: Reports extremity pain; Denies back pain Integumentary Reports other Details: Right great toe wound ; Denies Abrasions or rash Neurologic Neurologic: Denies headache(s) or weakness Allergic/Immunologic Allergic/Immunologic ED: Denies lip swelling or urticaria EXAM Physical Exam Const Vital Signs: 10/12/21 10:01 10/12/21 10:34 Temperature 97.2 F L Temperature Source Temporal Pulse Rate 91 Respiratory Rate 16 Respiratory Pattern Normal Blood Pressure 120/91 H Blood Pressure Mean 100 Pulse Ox 97 Oxygen Delivery Method Room Air Positive well nourished and well developed General Appearance ED: well developed HEENT Reports normocephalic and head/scalp atraumatic Eyes PERRL and EOMs intact bilaterally Neck supple Chest Wall inspection of chest normal and palpation of chest normal Resp normal respiratory effort and clear to auscultation bilaterally Cardio regular rate and regular rhythm GI normal to inspection, nondistended, normoactive bowel sounds Palpation: soft Extremity Extremity Narrative: Skin ulceration with edema noted to the right great toe. No drainage at this time. Erythema consistent with cellulitis over the top of the right foot. No lymphangitic streaking noted at this time. Mild calf tenderness. Neuro oriented x3 and no sensory deficits noted Sensorium / Orientation: alert Motor Exam: strength 5/5 throughout Psych mental status grossly normal Skin Skin Narrative: Right foot wound as above MDM MDM MDM Narrative Medical decision making narrative: Lab work, cultures, x-ray of the right foot obtained. Venous ultrasound of the right leg obtained. Lab Data Attestation: I reviewed the patient's lab results. Labs: Laboratory Results - last 24 hr 10/12/21 10/12/21 10/12/21 10:55 10:55 10:55 WBC 14.4 H RBC 4.58 L Hgb 14.1 Hct 42.0 MCV 91.7 MCH 30.8 MCHC 33.6 RDW Std Deviation 42.3 RDW Coeff of Fabian 12.7 Plt Count 291 MPV 9.6 Immature Gran % (Auto) 0.600 Neut % (Auto) 77.1 H Lymph % (Auto) 14.0 L Sunflower % (Auto) 7.0 Eos % (Auto) 1.0 Baso % (Auto) 0.3 Absolute Neuts (auto) 11.1 H Absolute Lymphs (auto) 2.02 Nucleated RBC % 0 Sodium 136 Potassium 4.3 Chloride 101 Carbon Dioxide 26.0 Anion Gap 9 BUN 21 H Creatinine 1.17 Estim Creat Clear Calc 68.46 Est GFR (MDRD) Af Amer 81 Est GFR (MDRD) Non-Af 67 BUN/Creatinine Ratio 17.9 Glucose 217 H Lactic Acid 1.0 Calcium 9.6 Radiography Diagnostic Testing: Clinical Impression(s) from Imaging Studies Foot X-Ray 10/12/21 10:25 IMPRESSION: Degenerative changes. Electronically Signed: Laxmi Luque MD at 11:32 EDT , Treatment and Re-Evaluation Narrative: White blood cell count elevated at 14.4 with slight left shift. Chemistry studies unremarkable. Lactic acid is normal. Right foot x-rays per my interpretation reveal no bony destruction. Soft tissue swelling is noted. Radiology interpretation is reviewed. After initially declining anything for pain he did request some analgesics. He is given a dose of morphine and Zofran. He has been started on Zosyn and vancomycin. Venous ultrasound of the right lower extremity reveals no evidence of DVT. I will speak with podiatry and hospitalist for admission. Discharge Plan Triage Chief Complaint: Cellulitis ED Provider: Jamia Polk Dx/Rx/DC Orders Clinical Impression: Diabetic foot infection Prescriptions: No Action multivitamin [Multiple Vitamins] Tablet 1 tablet PO DAILY ascorbate calcium (vitamin C) 500 mg tablet 500 mg PO DAILY bupropion HCl [Wellbutrin XL] 300 mg tablet extended release 24 hr 300 mg PO QAM omega-3 fatty acids [Fish Oil Concentrate] 1,000 mg capsule 1,000 mg PO DAILY calcium carbonate 600 mg calcium (1,500 mg) tablet 600 mg PO DAILY metformin 1,000 MG tablet 1,000 mg PO BIDCM cholecalciferol (vitamin D3) 1,000 UNIT tablet 1,000 unit PO DAILY diltiazem HCl 360 mg capsule,extended release 24hr 240 mg PO DAILY pentoxifylline 400 mg tablet extended release 400 mg PO TID Qty: 270 3RF Rx Instructions: must administer with a meal/food Primary Care Provider: Fernando Fu Referrals: Fernando Fu MD [Primary Care Provider] - Disposition Disposition: Acute Care Hospital [facility]
[2021-10-12 11:03] LABS: Absolute Lymphocyte Count 2.02 X10^3/uL (0.83-4.51); Absolute Neutrophil Count 11.1 X10^3/uL (2.0-7.7); Basophil# 0.05 X10^3/uL; Basophil% 0.3 % (0-1); Eosinophil# 0.14 X10^3/uL; Hemoglobin 14.1 g/dL (13.0-16.5); Lymphocyte # 2.02 X10^3/ul (0.83-4.51); Mean Corp Hgb Conc 33.6 g/dL (32-36); Mean Corpuscular Hgb 30.8 pg (27.0-32.0); Mean Corpuscular Volume 91.7 fL (80-94); Mean Platelet Vol. 9.6 fl (6.2-12.0); Monocyte# 1.01 X10^3/uL; NRBC Flagged by Analyzer 0 % (0-5); Neutrophil # 11.07 X10^3/uL (2.7-7.7); Neutrophil % 77.1 % (47-70); Platelet Count 291 K/mm3 (150-450); RBC Distribution Width CV 12.7 % (11.6-14.6); RBC Distribution Width SD 42.3 fl (35.1-43.9); Red Blood Count 4.58 M/mm3 (4.6-6.2); White Blood Count 14.4 K/mm3 (4.4-11.0)
[2021-10-12 11:18] LABS: Anion Gap 9 (5-15); BUN 21 mg/dL (7-18); BUN/Creat Ratio 17.9 RATIO (10-20); Calcium,Total 9.6 mg/dL (8.5-10.1); Chloride 101 mmol/L (98-107); Creatinine, Serum 1.17 mg/dL (0.70-1.30); EST Glomerular Filtration Rate 67 mL/min (>60); Est Glom Filt Rate - Afr Amer 81 mL/min (>60); Estimated Creatinine Clearance 68.46 ml/min; Glucose 217 mg/dL (74-106); Potassium 4.3 mmol/L (3.5-5.1); Sodium Level 136 mmol/L (136-145)
[2021-10-12] MEDS: 0.9% Normal Saline 1,000 ML 150 ML IV ×3 (11:23→23:17)
[2021-10-12 12:03] VITALS: BP 129/81; PULSE 80; RESP 16; TEMP 36.6; O2SAT 97
[2021-10-12] MEDS: Morphine 4 MG/ML Syringe IV (12:05)
[2021-10-12] MEDS: Ondansetron 4 MG/2 ML Vial IV (12:05)
--- NOTE | 2021-10-12 13:27 | HP.PCM.HOS_ITS ---
Documented by User: Jo Martínez NP, [employer] 10/12/21 13:51 HPI - General General Date of Admission: 10/12/21 Date of Service: 10/12/21 Chief Complaint: Right great toe infection. HPI Narrative CARA PEOPLES, is a 60 M who presents to the emergency room due to right great toe infection. Patient states he has had a small wound on the top of his right great toe for some time now which has been followed by podiatry and has not been a concern as it has been overall healed/stable. On into Wednesday, michaela durbin states that area opened up and from Wednesday night until today his toe doubled in size with notable increased redness and drainage. He reports initial red streaking down his foot however now has diffuse redness of his right foot as well. He reports fever last night greater than 100 F. Denies nausea, vomiting. Reports shooting pain down his right foot. He took an extra gabapentin which d id not help his pain. Patient underwent recent diagnostic right lower extremity arteriogram by Dr. Mcmullen 09/11/21 in an attempt to help heal great toe ulceration. There was no noted treatable large vessel disease, felt to be severe distal small vessel disease. He was placed on pentoxifylline. He has a past medical history of type 2 diabetes mellitus with neuropathy, hypertension, PAOD. [facility] Medical History DM type 2 (diabetes mellitus, type 2) HTN (hypertension) RLS (restless legs syndrome) Ruptured meckels diverticulum with sepsis Undescended testicle Home Medications cholecalciferol (vitamin D3) 25 mcg (1,000 unit) tablet 1,000 unit PO DAILY supplement 02/26/14 [History Last Taken Unknown] metformin 1,000 mg tablet 1,000 mg PO BIDCM diabetes 02/26/14 [History Last Taken 09/10/21] ascorbate calcium (vitamin C) 500 mg tablet 500 mg PO DAILY vitamin 07/22/20 [History Last Taken Unknown] bupropion HCl 300 mg 24 hr tablet, extended release (Wellbutrin XL) 300 mg PO QAM mood 07/22/20 [History Last Taken Unknown] multivitamin (Multiple Vitamins) 1 tablet PO DAILY vitamin 07/22/20 [History Last Taken 09/11/21] omega-3 fatty acids 1,000 mg capsule (Fish Oil Concentrate) 1,000 mg PO DAILY vitamin 07/22/20 [History Last Taken Unknown] calcium carbonate 600 mg calcium (1,500 mg) tablet 600 mg PO DAILY supplement 07/21/21 [History Last Taken Unknown] diltiazem HCl 360 mg capsule,extended release 24 hr 240 mg PO DAILY heart 07/21/21 [History Last Taken 09/10/21] pentoxifylline 400 mg tablet,extended release 400 mg PO TID circulation 10/12/21 [History Last Taken Unknown] Allergy/AdvReac Type Severity Reaction Status Date / Time Fbewyug-AWS-EeK Reductase Allergy Other Verified 10/12/21 10:03 Inhibitor [Mzspxqi-Gjz-Sqd Reductase Inhibitor] Family History Brother Cancer pancreatic cancer Father Diabetes Heart disease Hypertension Mother Hypertension Surgical History History of angioplasty of peripheral vessel History of gastric bypass History of nasal polypectomy History of testicular surgery History of tonsillectomy History of uvulectomy Social History household members: spouse housing: house Smoking Status: Never smoker alcohol intake: current alcohol intake frequency: holidays/special occasions only what type of physical activity do you participate in: none do you feel safe at home: Yes ROS Constitutional Constitutional: Reports fever(s); Denies change in weight, chills, fatigue or weakness Cardiovascular Cardiovascular: Denies chest pain, lightheadedness, palpitations or syncope Respiratory/Chest Respiratory/Chest: Denies cough, dyspnea, productive cough, shortness of breath at rest, shortness of breath with exertion or wheezing Gastrointestinal Gastrointestinal: Denies abdominal pain, constipation, diarrhea, nausea or vomiting Genitourinary Genitourinary: Denies burning urination, difficulty urinating, dysuria, hematuria, urinary frequency, urinary incontinence or urinary urgency Musculoskeletal Musculoskeletal: Denies back pain, joint pain or muscle weakness Integumentary Integumentary: Reports other Details: Right great toe wound with surrounding toe and foot erythema ; Denies erythema, lesions or rash Neurologic Neurologic: Denies abnormal speech, confusion, dizziness, focal weakness, numbness, paresthesias, seizure-like activity or syncope Psychiatric Psychiatric: Denies anxiety or depression Hematologic/Lymphatic Hematologic/Lymphatic: Denies anemia, easy bleeding or easy bruising Allergic/Immunologic Allergic/Immunologic: Denies hives or asthma Vital Signs Vital Signs Vital Signs: 10/12/21 10:01 10/12/21 10:34 10/12/21 12:03 Temperature 97.2 F L 97.8 F Temperature Source Temporal Oral Pulse Rate 91 80 Respiratory Rate 16 16 Respiratory Pattern Normal Blood Pressure 120/91 H 129/81 H Blood Pressure Mean 100 97 Pulse Ox 97 97 Oxygen Delivery Method Room Air Room Air 10/12/21 12:03 Temperature 97.8 F Temperature Source Oral Pulse Rate 80 Respiratory Rate 16 Respiratory Pattern Blood Pressure 129/81 H Blood Pressure Mean 97 Pulse Ox 97 Oxygen Delivery Method Room Air Weight Weight: 214 lb Body Mass Index (BMI) 30.7 Physical Exam Const alert, oriented x3 and no apparent distress Orientation / Consciousness: awake, oriented to person, oriented to place and oriented to time HEENT normocephalic and moist oral mucous membranes Eyes PERRL, EOMs intact bilaterally and conjunctivae normal Neck no lymphadenopathy Resp normal respiratory effort and clear to auscultation bilaterally Cardio regular rate, regular rhythm and no murmurs Peripheral Pulses: pulses 2+ throughout GI normal to inspection, nondistended, normoactive bowel sounds, non-tender and non-distended Extremity normal to inspection Skin Skin Narrative: Right great toe ulceration/wound with surrounding erythema extending to top of right foot. Right great toe significantly edematous. Lesions: no lesions Rashes: no rashes Trauma: no lacerations or abrasions Neuro CN's II-XII intact bilaterally, no focal motor deficits, no sensory deficits noted and deep tendon reflexes 2+ bilaterally Psych mental status grossly normal and affect normal Results Lab / Micro Data Result Diagrams: 10/12/21 10:55 10/12/21 10:55 Labs: Laboratory Results - last 24 hr 10/12/21 10:55: WBC 14.4 H, RBC 4.58 L, Hgb 14.1, Hct 42.0, MCV 91.7, MCH 30.8, MCHC 33.6, RDW Std Deviation 42.3, RDW Coeff of Fabian 12.7, Plt Count 291, MPV 9.6, Immature Gran % (Auto) 0.600, Neut % (Auto) 77.1 H, Lymph % (Auto) 14.0 L, Estill % (Auto) 7.0, Eos % (Auto) 1.0, Baso % (Auto) 0.3, Absolute Neuts (auto) 11.1 H, Absolute Lymphs (auto) 2.02, Nucleated RBC % 0 10/12/21 10:55: Sodium 136, Potassium 4.3, Chloride 101, Carbon Dioxide 26.0, Anion Gap 9, BUN 21 H, Creatinine 1.17, Estim Creat Clear Calc 68.46, Est GFR (MDRD) Af Amer 81, Est GFR (MDRD) Non-Af 67, BUN/Creatinine Ratio 17.9, Glucose 217 H, Calcium 9.6 10/12/21 10:55: Lactic Acid 1.0 Radiology Impression Foot X-Ray 10/12/21 10:25 IMPRESSION: Degenerative changes. Electronically Signed: Laxmi Luque MD at 11:32 EDT , Assessment & Plan Assessment/Plan (1) Diabetic foot infection: PLAN: Plan 1. Right great toe cellulitis secondary to right great toe neuropathic wound- podiatry consulted. IV vancomycin and IV Zosyn. Obtain wound culture. Blood cultures pending. As needed pain regimen. Wound RN consult. 2. Type 2 diabetes mellitus with neuropathy-hold oral regimen. Accu-Cheks with sliding scale insulin. 3. Hypertension- on Cardizem. 4. PAOD- on pentoxifylline. Follows with vascular. DVT prophylaxis-Lovenox subcu This patient was seen by SERA Medina under the supervision of Dr. Chang. Time spent examining patient, reviewing data and subsequent management of care: 23 minutes Documented by User: Dr. Pete Chang, 10/12/21 15:18 HPI - General General Date of Admission: 10/12/21 [facility] Medical History DM type 2 (diabetes mellitus, type 2) HTN (hypertension) RLS (restless legs syndrome) Ruptured meckels diverticulum with sepsis Undescended testicle Home Medications cholecalciferol (vitamin D3) 25 mcg (1,000 unit) tablet 1,000 unit PO DAILY supplement 02/26/14 [History Last Taken Unknown] metformin 1,000 mg tablet 1,000 mg PO BIDCM diabetes 02/26/14 [History Last Taken 09/10/21] ascorbate calcium (vitamin C) 500 mg tablet 500 mg PO DAILY vitamin 07/22/20 [History Last Taken Unknown] bupropion HCl 300 mg 24 hr tablet, extended release (Wellbutrin XL) 300 mg PO QAM mood 07/22/20 [History Last Taken Unknown] multivitamin (Multiple Vitamins) 1 tablet PO DAILY vitamin 07/22/20 [History Last Taken 09/11/21] omega-3 fatty acids 1,000 mg capsule (Fish Oil Concentrate) 1,000 mg PO DAILY vitamin 07/22/20 [History Last Taken Unknown] calcium carbonate 600 mg calcium (1,500 mg) tablet 600 mg PO DAILY supplement 07/21/21 [History Last Taken Unknown] diltiazem HCl 360 mg capsule,extended release 24 hr 240 mg PO DAILY heart 07/21/21 [History Last Taken 09/10/21] pentoxifylline 400 mg tablet,extended release 400 mg PO TID circulation 10/12/21 [History Last Taken Unknown] Allergy/AdvReac Type Severity Reaction Status Date / Time Epeboul-KRD-IkH Reductase Allergy Other Verified 10/12/21 10:03 Inhibitor [Asitpop-Qzs-Gjr Reductase Inhibitor] Family History Brother Cancer pancreatic cancer Father Diabetes Heart disease Hypertension Mother Hypertension Surgical History History of angioplasty of peripheral vessel History of gastric bypass History of nasal polypectomy History of testicular surgery History of tonsillectomy History of uvulectomy Social History (Reviewed 10/12/21 @ 13:40 by Jo Mauricio [employer], [employer]) household members: spouse housing: house Smoking Status: Never smoker alcohol intake: current alcohol intake frequency: holidays/special occasions only what type of physical activity do you participate in: none do you feel safe at home: Yes Results Lab / Micro Data Result Diagrams: 10/12/21 10:55 10/12/21 10:55 Assessment & Plan Assessment/Plan (1) Diabetic foot infection: Charges/Coding Addendum Addendum: Patient was seen and examined today independently of Jo Martínez, he came to the emergency room today at [facility] with complaints of swelling and redness over his right great toe. He stated that the toe became swollen and reddened over the last 3 days, he did not come to the ER for medical attention however. Patient has a history of type 2 diabetes, diabetic neuropathy, and small vessel disease of his feet. Patient recently had an arteriogram of the right lower extremity which showed no large vessel disease. Work-up in the emergency room included labs which were remarkable for a white blood cell count of 14.4, patient's blood sugar was 217, and BUN was 21. The remainder of his labs were unremarkable. Podiatry was contacted (Dr. Jay), he came to the emergency room to evaluate the patient's right great toe and attempted to drain the area, incisions however did not result in any purulent material being expelled from the toe. On examination he appeared in good health and spirits. Vital signs as documented. Skin-there is noted to be extreme swelling of the patient's right great toe along with redness and warmth of the area extending into the dorsum of the foot near the base of the toe. There appeared to be some ecchymotic areas on the right great toe also.. Neck without JVD, neck was supple, trachea midline, thyroid was normal. Lungs clear bilaterally, normal air movement was noted. Heart exam notable for regular rhythm, normal sounds and absence of murmurs, rubs or gallops. Abdomen unremarkable and without evidence of organom egaly, masses, or abdominal aortic enlargement. Bowel sounds are present, abdomen is not distended. Extremities nonedematous, no cyanosis was noted, no clubbing was noted. Neuro: Cranial nerves II through XII are grossly intact, no focal motor deficits were noted, sensation to light touch and pinprick was diminished over the patient's toes bilaterally, motor exam 5/5 throughout. Psych: Patient is alert and oriented x3, he does not appear anxious or depressed, he does not appear agitated. Impression: #1 neuropathic infection of the right great toe-patient will be [facility], he was given Zosyn and vancomycin and he will be maintained on these antibiotics. Podiatry will participate in his care. #2 type 2 diabetes-patient's blood sugars will be monitored, fingerstick blood s ugars will be performed with coverage with sliding scale insulin. #3 neuropathy of the feet secondary to type 2 diabetes-makes management, care, recovery, and prognosis guarded #4 peripheral vascular disease of the lower extremities-small vessel-patient will remain on Pletal #5 essential hypertension-patient will remain on his present medications #6 chronic depression-patient is on Wellbutrin I have reviewed Jo Martínez's history and physical including her medical assessment and plan of care and with the above additions endorse it. Total clinical time spent by myself addressing the patient's medical issues, reviewing the data, and collaborating with the patient's care team: 50 minutes Visit Charges Inpatient E&M: 50894 Init Hosp L3
[2021-10-12 13:28] VITALS: BP 136/84; PULSE 78; RESP 74; TEMP 36.7; O2SAT 98
[2021-10-12 14:59] LABS: M R Staph aureus DNA By PCR Negative (Negative); Probe Check PASS; Specimen Processing Control PASS; Staph aureus DNA By PCR NEGATIVE (Negative)
[2021-10-12 15:43] VITALS: BMI 31.4
--- NOTE | 2021-10-12 15:48 | PHA.PHARE_ITS ---
Consult Pharmacy has been consulted to manage selected antiobiotic: Vancomycin Type of Consult: New start Suspected Infection: Skin/Soft tissue Prior Doses of Antibiotics Received/Current Regimen: Received vanc 1500mg IV x1 in E.R. starting at 11:22 today Labs: Sodium 136 mmol/L (136-145) 10/12/21 10:55 Potassium 4.3 mmol/L (3.5-5.1) 10/12/21 10:55 Chloride 101 mmol/L (98-107) 10/12/21 10:55 Carbon Dioxide 26.0 mmol/L (21.0-32.0) 10/12/21 10:55 Anion Gap 9 (5-15) 10/12/21 10:55 BUN 21 mg/dL (7-18) H 10/12/21 10:55 Creatinine 1.17 mg/dL (0.70-1.30) 10/12/21 10:55 Est GFR (MDRD) Af Amer 81 mL/min (>60) 10/12/21 10:55 Est GFR (MDRD) Non-Af 67 mL/min (>60) 10/12/21 10:55 BUN/Creatinine Ratio 17.9 RATIO (10-20) 10/12/21 10:55 Glucose 217 mg/dL (74-106) H 10/12/21 10:55 Weight used for dosin kg Estimated Creatinine Clearance: 77.5ml/min Goal Trough: 15-20 mcg/mL Pharmacy Plan for Drug Dosing: Starting 12 hours after the E.R. dose, will continue with 1500mg IV q12h per [facility] dosing protocol. Will check a trough level before the 4th total dose tomorrow night. The patient's CrCl of 77.5ml/min was calculated using an adjusted body weight of 82.6kg. Pharmacy Service will continue to monitor and adjust dosing as required. Follow-Up Labs: Trough Vancomycin Labs to be done on [date and time ordered]: 10/13 22:30
[2021-10-12 15:51] VITALS: BP 152/84; PULSE 92; RESP 16; TEMP 36.9; O2SAT 98
[2021-10-12] MEDS: Insulin Lispro 100 UNIT/ML INSULN.PEN SC ×2 (16:08→22:15)
--- NOTE | 2021-10-12 16:10 | CON.PCM_ITS ---
Assessment & Plan Assessment/Plan (1) PAOD (peripheral arterial occlusive disease): (2) Neuropathy: (3) Diabetic foot infection: (4) Chronic ulcer of great toe of right foot with fat layer exposed: (5) Cellulitis of right toe: (6) DM type 2 (diabetes mellitus, type 2): (7) Nondisplaced fracture of proximal phalanx of great toe: PLAN: Plan Patient seen and evaluated Patient demonstrates palpable pedal pulses DP and PT. Discussed with patient he sees Dr. Mcmullen who diagnosed him with small vessel disease with no vessel amendable to stent. He was seen bedside in ED for cellulitis with worsening of his swelling of the right hallux with Dr. Chang present in room. Patient states that this wound on the Hallux started as a blister that opened with cellulitis following over the next few days. I reviewed labs which demonstrates normal lactic acid, WBC 14.4, he was started on IV antibiotics Vanco/Zosyn in ED. Venous ultrasound was negative for DVT. Right hallux demonstrates significant erythema to the digit with a dorsal ulcerative site and surrounding skin slough with a yellowish discoloration and some slight expressible purulence from the dorsomedial wound site, this was cultured. Wound site measures 0.5cm x 0.5cm x 0.2cm. After discussion with patient and Dr. Chang verbal consent was obtained from patient to perform bedside I&D. Right ankle was cleansed with 70% alcohol. A right ankle block was performed well proximal to any erythema consisting of 10 cc 1% lidocaine plain. A sterile field was set up and the foot was draped. Right hallux was scrubbed with ChloraPrep x 2. A 2 cm dorsal incision was made directly overlying the hallux with no expressible purulence from incision site. A second 1 cm incision was made at the dorsolateral proximal hallux with no expressible purulence from the site. A third 1 cm incision was made at the distal dorsal medial hallux with no expressible purulence from the site. All wound sites were flushed with copious amounts of normal sterile saline. Given no purulence at any incision site these sites were closed with 3-0 nylon. Right hallux painted with Betadine and dressed with Adaptic, 4 x 4 fluff, 2 inch Carlos, and Kerlix. Patient will be admitted to the floor to continue IV antibiotics and continue to monitor his right hallux. He may be weightbearing to the right lower extremity in a surgical shoe to offload hallux. He was instructed not to get the right hallux site wet and keep dressings clean, dry, and intact. Reviewed radiographs of the right foot from 10/12/2021 which demonstrate degenerative changes with significant soft tissue swelling of the right great toe. My impression there appears to be a nondisplaced fracture of the proximal phalanx of the right hallux best seen on lateral and oblique view. Given he has a fracture of the Right hallux proximal phalanx I feel his blister was a fracture blister that opened and with him continuing to walk and wear shoes became contanminated by normal skin anders or organisms on the skin leading to superficial cellulitis of the Right Hallux. Also with his lack of feeling secondary to his diabetic peripheral polyneuropathy he continues to ambulate and this may be contributing to significant swelling of the right hallux. Medicine is following patient for medical management, this is greatly appreciated Podiatry will continue to follow and monitor his right hallux for any changes. Nursing may perform daily dressing changes to site consisting of Betadine, Adaptic, and dry sterile dressing. Please do not hesitate to call with any questions or concerns Carlitos Jay Jr. D.P.M. [facility] [phone] Note: [employer] speech recognition dye machine tender software was used to create portions of this document. Sound-alike and misspelled words, as well as other dye machine tender errors may be contained in the documentation. HPI Consult Data Date of Consult: 10/12/21 HPI Narrative Reason for Consultation: Red swollen right hallux HPI Narrative: CARA PEOPLES, is a 60 M who presents to the [facility] ED with a red swollen right hallux. Patient has history of DM type II with peripheral polyneuropathy and a dorsal wound of the right hallux. He states that he has been following Dr. Dumont for his wound care for a few months. He states that the toe did heal up and he did not go back to see her following healing. He states the past 2 days the toe worsened with increasing redness. He admits to a blisteration on the dorsal hallux that busted. He sites redness followed in the next few days. He denies any purulent drainage from the site stating I keep squeezing the toe but nothing comes out. He states that he had lymphatic streaking but now a mor e generalized redness of his toe and foot with continued swelling of the toe. He did admit to a temperature last night of 100.4 ?F after Tylenol. He presented to the ED due to no improvement in the toe. He denies any nausea, vomiting, chills. He admits to some mild calf pain but denies any pain in his foot. He has no other complaints today. [facility] Medical History Asthma Diabetes DM type 2 (diabetes mellitus, type 2) GERD (gastroesophageal reflux disease) HTN (hypertension) RLS (restless legs syndrome) Ruptured meckels diverticulum with sepsis Sleep apnea Undescended testicle Home Medications cholecalciferol (vitamin D3) 25 mcg (1,000 unit) tablet 1,000 unit PO DAILY supplement 02/26/14 [History Last Taken Unknown] metformin 1,000 mg tablet 1,000 mg PO BIDCM diabetes 02/26/14 [History Last Taken 09/10/21] ascorbate calcium (vitamin C) 500 mg tablet 500 mg PO DAILY vitamin 07/22/20 [History Last Taken Unknown] bupropion HCl 300 mg 24 hr tablet, extended release (Wellbutrin XL) 300 mg PO QAM mood 07/22/20 [History Last Taken Unknown] multivitamin (Multiple Vitamins) 1 tablet PO DAILY vitamin 07/22/20 [History Last Taken 09/11/21] omega-3 fatty acids 1,000 mg capsule (Fish Oil Concentrate) 1,000 mg PO DAILY vitamin 07/22/20 [History Last Taken Unknown] calcium carbonate 600 mg calcium (1,500 mg) tablet 600 mg PO DAILY supplement 07/21/21 [History Last Taken Unknown] diltiazem HCl 360 mg capsule,extended release 24 hr 240 mg PO DAILY heart 07/21/21 [History Last Taken 09/10/21] pentoxifylline 400 mg tablet,extended release 400 mg PO TID circulation 10/12/21 [History Last Taken Unknown] Allergy/AdvReac Type Severity Reaction Status Date / Time [id number] Reductase Allergy Other Verified 10/12/21 10:03 Inhibitor [Nsavbfm-Vrj-Gbq Reductase Inhibitor] Family History Brother Cancer pancreatic cancer Father Diabetes Heart disease Hypertension Mother Hypertension Surgical History History of angioplasty of peripheral vessel History of gastric bypass History of nasal polypectomy History of testicular surgery History of tonsillectomy History of uvulectomy Social History household members: spouse housing: house Smoking Status: Never smoker alcohol intake: current alcohol intake frequency: holidays/special occasions only what type of physical activity do you participate in: none do you feel safe at home: Yes ROS Constitutional Constitutional: Reports fever(s); Denies body ache(s), chills, malaise or poor appetite Eyes Eyes: Denies blindness, change in vision or diplopia ENT HEENT: Denies nasal congestion, nasal discharge or sore throat Cardiovascular Cardiovascular: Denies chest pain, claudication, cold extremities or leg edema Respiratory/Chest Respiratory/Chest: Denies chest congestion, chest tightness or cough Gastrointestinal Gastrointestinal: Denies abdominal pain, constipation, diarrhea, nausea or vomiting Genitourinary Genitourinary: Denies dysuria, urinary frequency, urinary hesitancy or urinary incontinence Musculoskeletal Musculoskeletal: Reports numbness and tingling; Denies joint pain, joint stiffness or joint swelling Integumentary Integumentary: Denies jaundice, lesions or rash Neurologic Neurologic: Reports numbness and other Details: numbness of feet secondary to diabetes ; Denies dizziness, headache(s) or seizures Psychiatric Psychiatric: Denies anxiety, confusion or depression Endocrine Endocrinology: Denies cold intolerance, heat intolerance, polydipsia or polyuria Hematologic/Lymphatic Hematologic/Lymphatic: Denies easy bleeding or easy bruising Allergic/Immunologic Allergic/Immunologic: Denies asthma Physical Exam Const alert, oriented x3 and no apparent distress General Appearance: cooperative and comfortable HEENT normocephalic Eyes General Eye: normal appearance of both eyes Neck General: normal visual inspection Lymph Lymphatic: no lymphadenopathy noted and no lymphedema noted Chest inspection of chest normal Resp normal respiratory effort Cardio regular rate and regular rhythm GI soft to palpation, non-tender and non-distended Back/Spine normal ROM and normal to inspection Extremity Extremity Narrative: Right lower extremity: DP and PT pulses palpable. Normal capillary refill. Right hallux nail avulsed. Right hallux demonstrates significant edema circum ferentially. There is erythema about the right hallux extending proximally onto the dorsum of the foot. Dorsal hallux demonstrates yellowish to darkened discoloration with some eschar dorsal lateral and a small opening/ulceration at the dorsal medial hallux with slight expressible purulence and blood. Peripheral Pulses: Yes posterior tibial pulses present and dorsalis pedis pulses present Skin no rashes or lesions noted, skin turgor normal and no jaundice Wound Narrative: There is erythema about the right hallux extending proximally onto the dorsum of the foot. Right hallux demonstrates significant edema circumferentially. Dorsal hallux demonstrates yellowish to darkened discoloration with some eschar dorsal lateral and a small opening/ulceration at the dorsal medial hallux with slight expressible purulence and blood. Neuro oriented x3 and moves all extremities Motor Exam: strength 5/5 throughout Lab / Micro Data Result Diagrams: 10/12/21 10:55 10/12/21 10:55 Labs: Laboratory Results - last 24 hr 10/12/21 10:55: WBC 14.4 H, RBC 4.58 L, Hgb 14.1, Hct 42.0, MCV 91.7, MCH 30.8, MCHC 33.6, RDW Std Deviation 42.3, RDW Coeff of Fabian 12.7, Plt Count 291, MPV 9.6, Immature Gran % (Auto) 0.600, Neut % (Auto) 77.1 H, Lymph % (Auto) 14.0 L, Borden % (Auto) 7.0, Eos % (Auto) 1.0, Baso % (Auto) 0.3, Absolute Neuts (auto) 11.1 H, Absolute Lymphs (auto) 2.02, Nucleated RBC % 0 10/12/21 10:55: Sodium 136, Potassium 4.3, Chloride 101, Carbon Dioxide 26.0, Anion Gap 9, BUN 21 H, Creatinine 1.17, Estim Creat Clear Calc 68.46, Est GFR (MDRD) Af Amer 81, Est GFR (MDRD) Non-Af 67, BUN/Creatinine Ratio 17.9, Glucose 217 H, Calcium 9.6 10/12/21 10:55: Lactic Acid 1.0 10/12/21 13:39: S.aureus Protein A PCR NEGATIVE, MRSA (PCR) Negative Radiology Impression Foot X-Ray 10/12/21 10:25 IMPRESSION: Degenerative changes. Electronically Signed: Laxmi Luque MD at 11:32 EDT ,
[2021-10-12 16:35] LABS: Bedside Glucose 202 mg/dL (74-106)
[2021-10-12] MEDS: oxyCODONE 5 MG Tablet 10 MG PO (20:13)
[2021-10-12 22:05] VITALS: BP 158/95; PULSE 86; RESP 16; TEMP 36.8; O2SAT 95
[2021-10-12 22:55] LABS: Bedside Glucose 174 mg/dL (74-106)
[2021-10-12] MEDS: 0.9% Saline Lock 10 ML Syringe IV (23:21)
[2021-10-13 03:15] VITALS: BP 169/92; PULSE 88; RESP 16; TEMP 36.8; O2SAT 97
[2021-10-13] MEDS: dilTIAZem CD 240 MG Capsule PO (06:36)
[2021-10-13] MEDS: oxyCODONE 5 MG Tablet 10 MG PO (06:52)
[2021-10-13 06:58] LABS: Absolute Lymphocyte Count 2.07 X10^3/uL (0.83-4.51); Absolute Neutrophil Count 7.3 X10^3/uL (2.0-7.7); Basophil# 0.05 X10^3/uL; Basophil% 0.5 % (0-1); Eosinophil# 0.28 X10^3/uL; Eosinophils% 2.6 % (0-5); Hematocrit 40.4 % (40-54); Hemoglobin 13.1 g/dL (13.0-16.5); Lymphocyte # 2.07 X10^3/ul (0.83-4.51); Lymphocyte % 19.5 % (19-41); Mean Corp Hgb Conc 32.4 g/dL (32-36); Mean Corpuscular Hgb 30.3 pg (27.0-32.0); Mean Corpuscular Volume 93.5 fL (80-94); Mean Platelet Vol. 9.4 fl (6.2-12.0); Monocyte# 0.82 X10^3/uL; Monocyte% 7.7 % (0-10); NRBC Flagged by Analyzer 0 % (0-5); Neutrophil # 7.34 X10^3/uL (2.7-7.7); Neutrophil % 69.3 % (47-70); Platelet Count 293 K/mm3 (150-450); RBC Distribution Width CV 12.4 % (11.6-14.6); RBC Distribution Width SD 42.7 fl (35.1-43.9); Red Blood Count 4.32 M/mm3 (4.6-6.2); White Blood Count 10.6 K/mm3 (4.4-11.0)
[2021-10-13 07:15] LABS: Bedside Glucose 136 mg/dL (74-106)
[2021-10-13 07:20] LABS: Anion Gap 5 (5-15); BUN 16 mg/dL (7-18); BUN/Creat Ratio 16.4 RATIO (10-20); Chloride 107 mmol/L (98-107); Creatinine, Serum 0.97 mg/dL (0.70-1.30); EST Glomerular Filtration Rate 83 mL/min (>60); Est Glom Filt Rate - Afr Amer 100 mL/min (>60); Estimated Creatinine Clearance 82.57 ml/min; Glucose 106 mg/dL (74-106); Potassium 4.1 mmol/L (3.5-5.1); Sodium Level 137 mmol/L (136-145)
[2021-10-13 09:23] VITALS: BP 171/94; PULSE 85; RESP 18; TEMP 36.6; O2SAT 95
[2021-10-13] MEDS: buPROPion (XL) 300 MG TABLET.XL PO (09:27)
--- NOTE | 2021-10-13 10:19 | DCINST_ITS ---
Discharge Instructions Diet Discharge Diet: Low fat / Low cholesterol and Carb Control Diet Activity Discharge Activity: Return to Normal Activity Additional Activity Instructions:: Dressing changes per podiatry. Dressing / Incision Call your doctor if your incision/area has: Continuous Slow Oozing, Sudden Increased Bleeding, Increased Pain/ Swelling, Increased Redness, Foul Smelling Discharge and Swelling at the incision site Call your doctor if you observe: Fever of 101 or Higher Follow Up Care Test Results: Test results from this visit will be discussed in further detail at your follow- up appointment, if applicable. Discharge Plan Admission Admit Date/Time: 10/12/21 13:14 Primary Reason for Your Visit: Right great toe cellulitis Attending Provider: Lane Plummer Primary Care Provider: Fernando Fu Consulting Providers: Carlitos Jay ; Pete Chang Instructions Additional Instructions / Restrictions: Your hemoglobin A1c was 8.0%. Continue follow up with PCP for management. Discharge Orders/Prescriptions Prescriptions: New oxycodone 5 mg Tablet 10 mg PO Q6H PRN PRN (Reason: Pain Score 6-10) 3 Days Qty: 15 0RF amoxicillin-pot clavulanate 875-125 mg tablet 1 tab PO BID Qty: 14 0RF Continued multivitamin [Multiple Vitamins] Tablet 1 tablet PO DAILY ascorbate calcium (vitamin C) 500 mg tablet 500 mg PO DAILY bupropion HCl [Wellbutrin XL] 300 mg tablet extended release 24 hr 300 mg PO QAM omega-3 fatty acids [Fish Oil Concentrate] 1,000 mg capsule 1,000 mg PO DAILY calcium carbonate 600 mg calcium (1,500 mg) tablet 600 mg PO DAILY metformin 1,000 MG tablet 1,000 mg PO BIDCM cholecalciferol (vitamin D3) 1,000 UNIT tablet 1,000 unit PO DAILY diltiazem HCl 360 mg capsule,extended release 24hr 240 mg PO DAILY pentoxifylline 400 mg tablet extended release 400 mg PO TID Rx Instructions: must administer with a meal/food Referrals / Follow Up: Jasmin Jaime DPM [STAFF PHYSICIAN] - See Referral Note (Call for close follow up) Fernando Fu MD [Primary Care Provider] - In 1 Week Disposition Disposition (needs filled in before D/C Order can be placed): Home, Self Care
--- NOTE | 2021-10-13 12:22 | PCM.DC.SUM ---
Documented by User: Jo Martínez NP, [employer] SALESPERSON-C 10/13/21 12:29 Providers Date of Admission: 10/12/21 Date of Discharge: 10/13/21 Primary Care Physician: Dr. 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 Routine Comment: Reason For Visit: RIGHT GREAT TOE CELLULITIS Diagnosis Discharge Diagnosis (1) PAOD (peripheral arterial occlusive disease): Status: Acute Code(s): I77.9 - Disorder of arteries and arterioles, unspecified (2) Neuropathy: Status: Acute Code(s): G62.9 - Polyneuropathy, unspecified (3) Diabetic foot infection: Status: Acute Code(s): E11.628 - Type 2 diabetes mellitus with other skin complications; L08.9 - Local infection of the skin and subcutaneous tissue, unspecified (4) Chronic ulcer of great toe of right foot with fat layer exposed: Status: Chronic Code(s): L97.512 - Non-pressure chronic ulcer of other part of right foot with fat layer exposed (5) Cellulitis of right toe: Status: Acute Code(s): L03.031 - Cellulitis of right toe (6) DM type 2 (diabetes mellitus, type 2): Status: Acute Code(s): E11.9 - Type 2 diabetes mellitus without complications (7) Nondisplaced fracture of proximal phalanx of great toe: Status: Acute Code(s): S92.416A - Nondisplaced fracture of proximal phalanx of unspecified great toe, initial encounter for closed fracture Medications at Discharge Home Medications cholecalciferol (vitamin D3) 25 mcg (1,000 unit) tablet 1,000 unit PO DAILY supplement 02/26/14 metformin 1,000 mg tablet 1,000 mg PO BIDCM diabetes 02/26/14 ascorbate calcium (vitamin C) 500 mg tablet 500 mg PO DAILY vitamin 07/22/20 bupropion HCl 300 mg 24 hr tablet, extended release (Wellbutrin XL) 300 mg PO QAM mood 07/22/20 multivitamin (Multiple Vitamins) 1 tablet PO DAILY vitamin 07/22/20 omega-3 fatty acids 1,000 mg capsule (Fish Oil Concentrate) 1,000 mg PO DAILY vitamin 07/22/20 calcium carbonate 600 mg calcium (1,500 mg) tablet 600 mg PO DAILY supplement 07/21/21 diltiazem HCl 360 mg capsule,extended release 24 hr 240 mg PO DAILY heart 07/21/21 pentoxifylline 400 mg tablet,extended release 400 mg PO TID circulation 10/12/21 amoxicillin 875 mg-potassium clavulanate 125 mg tablet 1 tab PO BID #14 tabs 10/13/21 oxycodone 5 mg tablet 10 mg PO Q6H PRN PRN Pain Score 6-10 3 days #15 tabs 10/13/21 Hospital Course Operations None Procedures None Summary of Care Provided Hospital Course: Patient is a 60-year-old male admitted 10/12/2021 due to right great toe wound. 1. Right great toe cellulitis secondary to right great toe neuropathic wound-podiatry consulted.? IV vancomycin and IV Zosyn during admission.? Wound culture pending. Patient underwent bedside I&D per podiatry, no purulence noted. Transition to Augmentin at discharge. Follow-up with podiatry. Keep dressing clean dry and intact until podiatry follow-up. Patient improved quicker than expected. No further fever, leukocytosis resolved. Stable for outpatient antibiotics and follow up. 2. Type 2 diabetes mellitus with neuropathy-hemoglobin A1c 8%. Continue home regimen. Follow-up with PCP for ongoing management. 3. Hypertension- on Cardizem. 4. PAOD- on pentoxifylline. Follows with vascular. Physical Exam Const alert, oriented x3 and no apparent distress Orientation / Consciousness: awake, oriented to person, oriented to place and oriented to time HEENT normocephalic and moist oral mucous membranes Eyes PERRL, EOMs intact bilaterally and conjunctivae normal Neck no lymphadenopathy Resp normal respiratory effort and clear to auscultation bilaterally Cardio regular rate, regular rhythm and no murmurs Peripheral Pulses: pulses 2+ throughout GI normal to inspection, nondistended, normoactive bowel sounds, non-tender and non-distended Extremity normal to inspection Skin Skin Narrative: Right great toe ulceration/wound. Dressing intact. Lesions: no lesions Rashes: no rashes Trauma: no lacerations or abrasions Neuro CN's II-XII intact bilaterally, no focal motor deficits, no sensory deficits noted and deep tendon reflexes 2+ bilaterally Psych mental status grossly normal and affect normal Patient seen and examined prior to discharge. Physical assessment as noted above. Patient is stable for discharge with follow up recommendations as noted above. This patient was seen by SERA Medina under the supervision of Dr. Plummer. Time spent examining patient, reviewing data and subsequent management of care: 22 minutes Weight / BMI Weight Weight: 219 lb 3.2 oz Body Mass Index (BMI) 31.4 ABG / Lab / Microbiology Data Result Diagrams: 10/13/21 06:24 10/13/21 06:24 Laboratory: Laboratory Results - last 24 hr 10/12/21 13:39: S.aureus Protein A PCR NEGATIVE, MRSA (PCR) Negative 10/12/21 16:06: POC Glucose 202 H 10/12/21 22:13: POC Glucose 174 H 10/13/21 06:24: WBC 10.6, RBC 4.32 L, Hgb 13.1, Hct 40.4, MCV 93.5, MCH 30.3, MCHC 32.4, RDW Std Deviation 42.7, RDW Coeff of Fabian 12.4, Plt Count 293, MPV 9.4, Immature Gran % (Auto) 0.400, Neut % (Auto) 69.3, Lymph % (Auto) 19.5, [place] % (Auto) 7.7, Eos % (Auto) 2.6, Baso % (Auto) 0.5, Absolute Neuts (auto) 7.3, Absolute Lymphs (auto) 2.07, Nucleated RBC % 0 10/13/21 06:24: Sodium 137, Potassium 4.1, Chloride 107, Carbon Dioxide 25.0, Anion Gap 5, BUN 16, Creatinine 0.97, Estim Creat Clear Calc 82.57, Est GFR (MDRD) Af Amer 100, Est GFR (MDRD) Non-Af 83, BUN/Creatinine Ratio 16.4, Glucose 106, Calcium 9.0 10/13/21 06:24: Hemoglobin A1c 8.0 H 10/13/21 06:45: POC Glucose 136 H Radiography Diagnostic Testing: Radiology Impression Venous Doppler Study 10/12/21 10:25 Interpretation Summary There is no evidence of right lower extremity deep vein thrombosis. Right great saphenous vein appears patent and compressible segmentally. Ordering Physician: Jamia Polk Referring Physician: Fernando Fu Performed By: Tatiana Brand, BRANDAN, RVT D/C Instructions Discharge Diet: Low fat / Low cholesterol and Carb Control Diet Additional Activity Instructions: Dressing changes per podiatry. Call your doctor if your incision/area has: Continuous Slow Oozing, Sudden Increased Bleeding, Increased Pain/ Swelling, Increased Redness, Foul Smelling Discharge and Swelling at the incision site Call your doctor if you observe: Fever of 101 or Higher Meaningful Use Info Meaningful Use Diagnoses (Choose all that apply): None applicable Discharge Plan Admission Admit Date/Time: 10/12/21 13:14 Primary Reason for Your Visit: Right great toe cellulitis Attending Provider: Lane Plummer Primary Care Provider: Fernando Fu Consulting Providers: Carlitos Jay ; Pete Chang Instructions Additional Instructions / Restrictions: Your hemoglobin A1c was 8.0%. Continue follow up with PCP for management. Discharge Orders/Prescriptions Prescriptions: New oxycodone 5 mg Tablet 10 mg PO Q6H PRN PRN (Reason: Pain Score 6-10) 3 Days Qty: 15 0RF amoxicillin-pot clavulanate 875-125 mg tablet 1 tab PO BID Qty: 14 0RF Continued multivitamin [Multiple Vitamins] Tablet 1 tablet PO DAILY ascorbate calcium (vitamin C) 500 mg tablet 500 mg PO DAILY bupropion HCl [Wellbutrin XL] 300 mg tablet extended release 24 hr 300 mg PO QAM omega-3 fatty acids [Fish Oil Concentrate] 1,000 mg capsule 1,000 mg PO DAILY calcium carbonate 600 mg calcium (1,500 mg) tablet 600 mg PO DAILY metformin 1,000 MG tablet 1,000 mg PO BIDCM cholecalciferol (vitamin D3) 1,000 UNIT tablet 1,000 unit PO DAILY diltiazem HCl 360 mg capsule,extended release 24hr 240 mg PO DAILY pentoxifylline 400 mg tablet extended release 400 mg PO TID Rx Instructions: must administer with a meal/food Referrals / Follow Up: Jasmin Jaime DPM [STAFF PHYSICIAN] - See Referral Note (Call for close follow up) Fernando Fu MD [Primary Care Provider] - In 1 Week Disposition Disposition (needs filled in before D/C Order can be placed): Home, Self Care Documented by User: Dr. Lane Plummer MD 10/13/21 13:43 Providers Date of Admission: 10/12/21 Reason For Visit: RIGHT GREAT TOE CELLULITIS Diagnosis Discharge Diagnosis (1) PAOD (peripheral arterial occlusive disease): Status: Acute Code(s): I77.9 - Disorder of arteries and arterioles, unspecified (2) Neuropathy: Status: Acute Code(s): G62.9 - Polyneuropathy, unspecified (3) Diabetic foot infection: Status: Acute Code(s): E11.628 - Type 2 diabetes mellitus with other skin complications; L08.9 - Local infection of the skin and subcutaneous tissue, unspecified (4) Chronic ulcer of great toe of right foot with fat layer exposed: Status: Chronic Code(s): L97.512 - Non-pressure chronic ulcer of other part of right foot with fat layer exposed (5) Cellulitis of right toe: Status: Acute Code(s): L03.031 - Cellulitis of right toe (6) DM type 2 (diabetes mellitus, type 2): Status: Acute Code(s): E11.9 - Type 2 diabetes mellitus without complications (7) Nondisplaced fracture of proximal phalanx of great toe: Status: Acute Code(s): S92.416A - Nondisplaced fracture of proximal phalanx of unspecified great toe, initial encounter for closed fracture Medications at Discharge Home Medications cholecalciferol (vitamin D3) 25 mcg (1,000 unit) tablet 1,000 unit PO DAILY supplement 02/26/14 metformin 1,000 mg tablet 1,000 mg PO BIDCM diabetes 02/26/14 ascorbate calcium (vitamin C) 500 mg tablet 500 mg PO DAILY vitamin 07/22/20 bupropion HCl 300 mg 24 hr tablet, extended release (Wellbutrin XL) 300 mg PO QAM mood 07/22/20 multivitamin (Multiple Vitamins) 1 tablet PO DAILY vitamin 07/22/20 omega-3 fatty acids 1,000 mg capsule (Fish Oil Concentrate) 1,000 mg PO DAILY vitamin 07/22/20 calcium carbonate 600 mg calcium (1,500 mg) tablet 600 mg PO DAILY supplement 07/21/21 diltiazem HCl 360 mg capsule,extended release 24 hr 240 mg PO DAILY heart 07/21/21 pentoxifylline 400 mg tablet,extended release 400 mg PO TID circulation 10/12/21 amoxicillin 875 mg-potassium clavulanate 125 mg tablet 1 tab PO BID #14 tabs 10/13/21 oxycodone 5 mg tablet 10 mg PO Q6H PRN PRN Pain Score 6-10 3 days #15 tabs 10/13/21 ABG / Lab / Microbiology Data Result Diagrams: 10/13/21 06:24 10/13/21 06:24 Discharge Plan Admission Admit Date/Time: 10/12/21 13:14 Primary Reason for Your Visit: Right great toe cellulitis Attending Provider: Lnae Plummer Primary Care Provider: Fernando Fu Consulting Providers: Carlitos Jay ; Pete Chang Instructions Additional Instructions / Restrictions: Your hemoglobin A1c was 8.0%. Continue follow up with PCP for management. Discharge Orders/Prescriptions Prescriptions: New oxycodone 5 mg Tablet 10 mg PO Q6H PRN PRN (Reason: Pain Score 6-10) 3 Days Qty: 15 0RF amoxicillin-pot clavulanate 875-125 mg tablet 1 tab PO BID Qty: 14 0RF Continued multivitamin [Multiple Vitamins] Tablet 1 tablet PO DAILY ascorbate calcium (vitamin C) 500 mg tablet 500 mg PO DAILY bupropion HCl [Wellbutrin XL] 300 mg tablet extended release 24 hr 300 mg PO QAM omega-3 fatty acids [Fish Oil Concentrate] 1,000 mg capsule 1,000 mg PO DAILY calcium carbonate 600 mg calcium (1,500 mg) tablet 600 mg PO DAILY metformin 1,000 MG tablet 1,000 mg PO BIDCM cholecalciferol (vitamin D3) 1,000 UNIT tablet 1,000 unit PO DAILY diltiazem HCl 360 mg capsule,extended release 24hr 240 mg PO DAILY pentoxifylline 400 mg tablet extended release 400 mg PO TID Rx Instructions: must administer with a meal/food Referrals / Follow Up: Jasmin Jaime DPM [STAFF PHYSICIAN] - See Referral Note (Call for close follow up) Fernando Fu MD [Primary Care Provider] - In 1 Week Disposition Disposition (needs filled in before D/C Order can be placed): Home, Self Care Charges/Coding Addendum Addendum: Addendum: Dr. Plummer I personally examined the patient and reviewed the chart. I agree with the above. 60-year-old male with a history of peripheral vascular disease as well as type 2 diabetes status post gastric bypass surgery presented to the hospital with a right great toe ulceration. Podiatry was consulted and did not feel that he had osteomyelitis and there is no sign of infection at this time however given his history there is a risk of infections and was continued on vancomycin and Zosyn, cultures are pending. We will plan to discharge him on Augmentin with outpatient follow-up with podiatry. Discussed with him extensively the risks of surgery, he is tired of having to do local wound care and is contemplating proceeding with amputation. Discussed with him that even with amputation the vascular issues will still be there and could potentially prevent wound healing of the amputation site. I discussed with him and his the plan for discharge today he expressed understanding of the risk and benefits of going home and would still like to go home today. He did improved faster than anticipated, white count has completely resolved and swelling has improved. Intervention by podiatry did not elucidate any purulent material in his foot and he has been washed out. Visit Charges Inpatient E&M: 74349 Disch Hosp
[2021-10-13 13:00] LABS: Bedside Glucose 116 mg/dL (74-106)
--- NOTE | 2021-10-13 13:06 | PN_ITS ---
Subjective Subjective This is a 60-year-old male seen bedside today resting comfortably with no complaints. He denies any pain in his right hallux. He states the redness is beginning to leave his toe and the swelling is coming down. He states he will be going home this afternoon. Objective Data Objective Data Vital Signs: Vital Signs Temp Pulse Resp BP Pulse Ox O2 Del Method 97.9 F 85 18 171/94 H 95 Room Air 10/13/21 09:23 10/13/21 09:23 10/13/21 09:23 10/13/21 09:23 10/13/21 09:23 10/13/21 09:23 Oxygen Delivery Method Room Air Weight: 99.427 kg Body Mass Index (BMI) 31.4 Intake & Output: Intake and Output for Last 24 Hours 10/11/21 10/12/21 10/13/21 23:59 23:59 23:59 Intake Total 2735 / 2735 1630 / 1630 Balance 2735 / 2735 1630 / 1630 Lab / Micro Data Result Diagrams: 10/13/21 06:24 10/13/21 06:24 Labs: Laboratory Results - last 24 hr 10/12/21 13:39: S.aureus Protein A PCR NEGATIVE, MRSA (PCR) Negative 10/12/21 16:06: POC Glucose 202 H 10/12/21 22:13: POC Glucose 174 H 10/13/21 06:24: WBC 10.6, RBC 4.32 L, Hgb 13.1, Hct 40.4, MCV 93.5, MCH 30.3, MCHC 32.4, RDW Std Deviation 42.7, RDW Coeff of Fabian 12.4, Plt Count 293, MPV 9.4, Immature Gran % (Auto) 0.400, Neut % (Auto) 69.3, Lymph % (Auto) 19.5, [place] % (Auto) 7.7, Eos % (Auto) 2.6, Baso % (Auto) 0.5, Absolute Neuts (auto) 7.3, Absolute Lymphs (auto) 2.07, Nucleated RBC % 0 10/13/21 06:24: Sodium 137, Potassium 4.1, Chloride 107, Carbon Dioxide 25.0, Anion Gap 5, BUN 16, Creatinine 0.97, Estim Creat Clear Calc 82.57, Est GFR (MDRD) Af Amer 100, Est GFR (MDRD) Non-Af 83, BUN/Creatinine Ratio 16.4, Glucose 106, Calcium 9.0 10/13/21 06:24: Hemoglobin A1c 8.0 H 10/13/21 06:45: POC Glucose 136 H 10/13/21 11:49: POC Glucose 116 H Radiography Diagnostic Testing: Radiology Impression Venous Doppler Study 10/12/21 10:25 Interpretation Summary There is no evidence of right lower extremity deep vein thrombosis. Right great saphenous vein appears patent and compressible segmentally. Ordering Physician: Jamia Polk Referring Physician: Fernando Fu Performed By: Tatiana Brand, BRANDAN, RVT Physical Exam Const alert, oriented x3 and no apparent distress General Appearance: cooperative and comfortable HEENT normocephalic Eyes General Eye: normal appearance of both eyes Neck General: normal visual inspection Lymph Lymphatic: no lymphadenopathy noted and no lymphedema noted Chest inspection of chest normal Resp normal respiratory effort Cardio regular rate and regular rhythm GI soft to palpation, non-tender and non-distended Back/Spine normal ROM and normal to inspection Extremity Extremity Narrative: Right lower extremity: DP and PT pulses palpable. Normal capillary refill. Right hallux nail avulsed. Right hallux demonstrates significant edema circumferentially. There is erythema about the right hallux extending proximally onto the dorsum of the foot. Dorsal hallux demonstrates yellowish to darkened discoloration with some eschar dorsal lateral and a small opening/ulceration at the dorsal medial hallux with slight expressible purulence and blood. Skin no rashes or lesions noted, skin turgor normal and no jaundice Wound Narrative: There is erythema about the right hallux extending proximally onto the dorsum of the foot. Right hallux demonstrates significant edema circumferentially. Dorsal hallux demonstrates yellowish to darkened discoloration with some eschar dorsal lateral and a small opening/ulceration at the dorsal medial hallux with slight expressible purulence and blood. Neuro oriented x3 and moves all extremities Motor Exam: strength 5/5 throughout Assessment & Plan Assessment/Plan (1) PAOD (peripheral arterial occlusive disease): (2) Neuropathy: (3) Diabetic foot infection: (4) Chronic ulcer of great toe of right foot with fat layer exposed: (5) Cellulitis of right toe: (6) DM type 2 (diabetes mellitus, type 2): (7) Nondisplaced fracture of proximal phalanx of great toe: PLAN: Plan Patient seen and evaluated Patient demonstrates palpable pedal pulses DP and PT. Discussed with patient he sees Dr. Mcmullen who diagnosed him with small vessel disease with no vessel amendable to stent. He was seen bedside in ED for cellulitis with worsening of his swelling of the right hallux with Dr. Chang present in room. Patient states that this wound on the Hallux started as a blister that opened with cellulitis following over the next few days. I reviewed labs which demonstrates normal lactic acid, WBC 14.4, he was started on IV antibiotics Vanco/Zosyn in ED. today 10/13/2021 his WBC is decreasing and currently at 10.6. Venous ultrasound was negative for DVT. Right hallux demonstrates significant erythema to the digit with a dorsal ulcerative site and surrounding skin slough with a yellowish discoloration and some slight expressible purulence from the dorsomedial wound site, this was cultured, awaiting results. Wound site measures 0.4cm x 0.4cm x 0.2cm. Bedside I&D was performed in the ED on 10/12/2021. Today 10/14/2019 2 sutures intact to right hallux with decreased erythema and edema compared to yesterday. WBC trending down on IV antibiotics and he is set to be discharged home today. Right hallux painted with Betadine and dressed with Adaptic, 2 inch Carlos. He does have a nondisplaced fracture of the proximal phalanx of the right hallux (see below). He may be weightbearing to the right lower extremity in a surgical shoe to offload hallux. He was instructed not to get the right hallux site wet and keep dressings clean, dry, and intact. Reviewed radiographs of the right foot from 10/12/2021 which demonstrate degenerative changes with significant soft tissue swelling of the right great toe. My impression there appears to be a nondisplaced fracture of the proximal phalanx of the right hallux best seen on lateral and oblique view. Given he has a fracture of the Right hallux proximal phalanx I feel his blister was a fracture blister that opened and with him continuing to walk and wear shoes became contanminated by normal skin anders or organisms on the skin leading to superficial cellulitis of the Right Hallux. Also with his lack of feeling secondary to his diabetic peripheral polyneuropathy he continues to ambulate and this may be contributing to significant swelling of the right hallux. Medicine is following patient for medical management, this is greatly a ppreciated He is being discharged home this afternoon and was instructed to call the office for an appointment tomorrow. He was instructed to keep dressings clean, dry, and intact to the right hallux. He may continue to ambulate in surgical shoe to offload the hallux. He states he was being discharged home on oral antibiotics, Augmentin. He was instructed to take the antibiotic to completion as instructed. He will follow-up in the office for continued fracture care and care of cellulitis. He was instructed that if anytime prior to his appointment his condition worsens or if purulence emerges from the hallux he is to go back to the ED. He voices understanding of this and his plan. Please do not hesitate to call with any questions or concerns Jr. Fariba Oliver.P.M. [facility] [phone] Note: [employer] speech recognition wind turbine service technician software was used to create portions of this document. Sound-alike and misspelled words, as well as other wind turbine service technician errors may be contained in the documentation.
== END 2021-10-13 14:51 | disposition home or self-care (01) | DRG 639 ==
LOC: ED 12:02 → MS3 13:36
PROVIDERS: Nurse Practitioner Family; Admitting Provider Internal Medicine; Emergency Provider Emergency Medicine; PCP Family Medicine; Visit Provider Family Medicine
DX: E11.621 Type 2 diabetes mellitus with foot ulcer (principal); E11.51 Type 2 diabetes mellitus with diabetic peripheral angiopathy without gangrene; E11.42 Type 2 diabetes mellitus with diabetic polyneuropathy; L03.031 Cellulitis of right toe; L97.512 Non-pressure chronic ulcer of other part of right foot with fat layer exposed; E11.628 Type 2 diabetes mellitus with other skin complications; S92.424A Nondisplaced fracture of distal phalanx of right great toe, initial encounter for closed fracture; I10 Essential (primary) hypertension; F32.A Depression, unspecified; Z79.84 Long term (current) use of oral hypoglycemic drugs; Z79.899 Other long term (current) drug therapy; Z98.84 Bariatric surgery status
CPT/HCPCS: 36415; 73630; 80048; 82962; 83036; 83605; 85025; 87040; 87640; 93971; 99284; J7030; J7040; J7050; A4216; J2405

== ENCOUNTER → 2021-10-17 | Outpatient (CLI) | payer OTHER, SELFPAY | END | disposition home or self-care (01) | LOC: LABSPEC 15:33 | PROVIDERS: PCP Family Medicine; Visit Provider Podiatrist | DX: L03.90 Cellulitis, unspecified (principal); T14.90XA Injury, unspecified, initial encounter | CPT/HCPCS: 87070; 87075; 87077; 87186; 87205 ==

== ENCOUNTER → 2021-10-24 | Outpatient (CLI) | payer OTHER, SELFPAY ==
[2021-10-24 18:12] LABS: Absolute Lymphocyte Count 1.82 X10^3/uL (0.83-4.51); Basophil# 0.06 X10^3/uL; Basophil% 0.6 % (0-1); Eosinophil# 0.28 X10^3/uL; Eosinophils% 2.9 % (0-5); Hematocrit 40.8 % (40-54); Hemoglobin 13.3 g/dL (13.0-16.5); Lymphocyte # 1.82 X10^3/ul (0.83-4.51); Lymphocyte % 18.6 % (19-41); Mean Corp Hgb Conc 32.6 g/dL (32-36); Mean Corpuscular Hgb 30.1 pg (27.0-32.0); Mean Corpuscular Volume 92.3 fL (80-94); Mean Platelet Vol. 9.5 fl (6.2-12.0); Monocyte% 6.1 % (0-10); NRBC Flagged by Analyzer 0 % (0-5); Neutrophil # 7.01 X10^3/uL (2.7-7.7); Neutrophil % 71.4 % (47-70); Platelet Count 455 K/mm3 (150-450); RBC Distribution Width CV 12.3 % (11.6-14.6); RBC Distribution Width SD 41.8 fl (35.1-43.9); Red Blood Count 4.42 M/mm3 (4.6-6.2); White Blood Count 9.8 K/mm3 (4.4-11.0)
[2021-10-24 18:15] LABS: ALB/GLOB Ratio 0.7 RATIO (0.9-2.4); AST(SGOT) 20 U/L (15-37); Alanine Aminotransfer ALT/SGPT 23 U/L (16-61); Albumin, Serum 3.2 g/dL (3.2-5.0); Alkaline Phosphatase 50 U/L (45-117); Anion Gap 8 (5-15); BUN 25 mg/dL (7-18); BUN/Creat Ratio 20.2 RATIO (10-20); Calcium,Total 9.5 mg/dL (8.5-10.1); Chloride 104 mmol/L (98-107); Creatinine, Serum 1.24 mg/dL (0.70-1.30); EST Glomerular Filtration Rate 63 mL/min (>60); Est Glom Filt Rate - Afr Amer 76 mL/min (>60); Globulin 4.7 g/dL (2.2-4.2); Glucose 169 mg/dL (74-106); Potassium 4.2 mmol/L (3.5-5.1); Protein, Total 7.9 g/dL (6.4-8.2); Sodium Level 137 mmol/L (136-145)
== END | disposition home or self-care (01) ==
LOC: MFPLAB 15:22
PROVIDERS: PCP Family Medicine; Referring Provider Family Medicine; Visit Provider Family Medicine
DX: Z00.00 Encounter for general adult medical examination without abnormal findings (principal)
CPT/HCPCS: 36415; 80053; 85025

== ENCOUNTER 2021-10-31 05:55 | Day surgery (SDC) | payer OTHER, SELFPAY ==
[2021-10-31] VITALS (7 sets, daily range): BP systolic 104–128; BP diastolic 70–83; PULSE 56–60; RESP 16–18; TEMP 36.2–36.8; O2SAT 95–99; BMI 30.9
[2021-10-31] MEDS: Lactated Ringers 1,000 ML 80 ML IV (07:10)
--- NOTE | 2021-10-31 07:30 | BON_PTH ---
PATIENT: CARA PEOPLES LOC: [facility] [place] U#:[id number] AGE/SX: 60/M ROOM: RE10/31/[address]: Dr. Jsamin Jaime DPM : 1960 BED: DIS: 10/31/2021 SPEC #: [id number] RECD: 10/31/21 12:25 STATUS: MIGUEL BERNARD #: [id number] JANETH: 10/31/21 07:[address]: Jasmin Jaime DEPT: SURGICAL PATHOLOGY RECD BY: Mary Carty ENTERED: 10/31/21 12:53 SP TYPE: Bone OTHR DR: Dr. Fernando Fu MD Tissues: A - Bone of foot, NOS B - Bone of foot, NOS Procedures: Decalcification bone/plaque Surgery Specimen Level IV HEADER OPERATION: Hallux amputation PRE-OP DIAGNOSIS: Right hallux, osteomyelitis TISSUE SUBMITTED: A ? Clearance fragment right foot, B ? Right hallux MICROSCOPIC DIAGNOSIS A. Clearance fragment right foot: Fragments of bone, negative of acute osteomyelitis. Chronic inflammation and reactive changes. B. Right hallux, amputation: Focal ulceration, acute and chronic inflammation and granulation tissue reaction. Detached pieces of bone with moderate to marked acute osteomyelitis, chronic inflammation and reactive changes. SJ:rg 11/05/2021 MICROSCOPIC DESCRIPTION Slides are reviewed. GROSS DESCRIPTION A - Received in fixative is one container labeled with the patient's name and designated clearance fragment right foot. The specimen consists of multiple irregular fragments of valdes bone that in aggregate measure 1 x 0.3 x 0.2 cm. The specimen is totally submitted in one cassette after decalcification. B - Received in fixative is one container labeled with the patient's name and designated right hallux. The specimen consists of two fragments. One fragment consists of valdes bone measuring 3 x 2.3 x 2 cm. The other fragment consists of a portion of toe without nail and with attached skin, bone and soft tissue measuring 4.5 x 4 x 2 cm. The dorsal aspect of the toe including nail and skin is not present. Pre Press Manager sections are submitted in three cassettes after decalcification as follows: 1 & 2 ? longitudinal section of toe, 3 ? fragment of bone free in container. / AM:kemar 10/31/2021 TC:2 CPT: 27154 x2, 37746 x2
--- NOTE | 2021-10-31 07:30 | DCINST_ITS ---
Discharge Instructions Procedure Narrative: right hallux amputation Diet Discharge Diet: No restrictions Activity Discharge Activity: May Shower (only if using a shower bag), Use Walker and Use Crutches Weight Bearing Status: No weight bearing (heel touch if needed for balance or brief transfers) Keep extremity elevated above heart level: Right Leg Dressing / Incision Call your doctor if your incision/area has: Continuous Slow Oozing, Sudden Increased Bleeding, Increased Pain/ Swelling, Increased Redness, Foul Smelling Discharge and Swelling at the incision site Call your doctor if you observe: Fever of 101 or Higher, Calf discomfort and Uncontrolled pain Remove Dressing in: do not remove dressing Cleanse incision/area with: Keep Dressing Clean & Dry Follow Up Care Please Follow Up With: Jasmin Jaime DPM When: [facility]. Call sooner if questions or concerns; [phone]. Test Results: Test results from this visit will be discussed in further detail at your follow- up appointment, if applicable. Discharge Plan Admission Primary Reason for Your Visit: right hallux amputation Attending Provider: Jasmin Jaime Primary Care Provider: Fernando Fu Discharge Orders/Prescriptions Prescriptions: New hydrocodone-acetaminophen 5-300 mg tablet 1 tab PO Q8H PRN (Reason: pain) 5 Days Qty: 15 0RF hydrocodone-acetaminophen 5-325 mg tablet 1 tab PO Q8H PRN (Reason: pain) 5 Days Qty: 15 0RF No Action multivitamin [Multiple Vitamins] Tablet 1 tablet PO DAILY ascorbate calcium (vitamin C) 500 mg tablet 500 mg PO DAILY bupropion HCl [Wellbutrin XL] 300 mg tablet extended release 24 hr 300 mg PO QAM omega-3 fatty acids [Fish Oil Concentrate] 1,000 mg capsule 1,000 mg PO DAILY calcium carbonate 600 mg calcium (1,500 mg) tablet 600 mg PO DAILY metformin 1,000 MG tablet 1,000 mg PO BIDCM cholecalciferol (vitamin D3) 1,000 UNIT tablet 1,000 unit PO DAILY diltiazem HCl 360 mg capsule,extended release 24hr 240 mg PO DAILY pentoxifylline 400 mg tablet extended release 400 mg PO TID Rx Instructions: must administer with a meal/food oxycodone 5 mg Tablet 10 mg PO Q6H PRN PRN (Reason: Pain Score 6-10) 3 Days Qty: 15 0RF amoxicillin-pot clavulanate 875-125 mg tablet 1 tab PO BID Qty: 14 0RF Trulicity 0.75 mg/0.5 mL pen injector 1 ea SUBCUT QWEEK Rx Instructions: On Sundays Referrals / Follow Up: Jasmin Jaime DPM [STAFF PHYSICIAN] - In 1 Week Fernando Fu MD [Primary Care Provider] - Disposition Disposition (needs filled in before D/C Order can be placed): Home, Self Care
--- NOTE | 2021-10-31 07:30 | RAD_ITS ---
STUDY: X-RAY - RIGHT FOOT CLINICAL: Male, 60 years old. HALLUX AMPUTATION TECHNIQUE: 2 view(s) of the foot. COMPARISON: None. FINDINGS: Intraoperative imaging provided for amputation of the great toe. RAD/Foot 2 Views IMPRESSION: Intraoperative imaging provided for amputation of the great toe. Electronically Signed: Tahir Taveras MD at 13:33 EDT ,
[2021-10-31 07:35] LABS: Bedside Glucose 173 mg/dL (74-106)
[2021-10-31] MEDS: Bupivacaine 0.25% 30 ML Vial (07:55)
[2021-10-31] MEDS: Lidocaine 1% (20 ml mdv) 20 ML Vial (07:55)
[2021-10-31] MEDS: Cefazolin 2 GM in 0.9% Normal Saline 100 ML IV (08:10)
--- NOTE | 2021-10-31 08:41 | PCM.OPRPT ---
Problems Associated Problem List Diagnoses (1) Right foot pain: (2) Osteomyelitis, unspecified: (3) Chronic ulcer of left foot with necrosis of bone: Report of Operation Date of Procedure: 10/31/21 Pre-Operative Diagnosis: Right hallux nonhealing ulcer now with infected bone and osteomyelitis Post-Operative Diagnosis: Right hallux nonhealing ulcer now with infected bone and osteomyelitis Surgery/Procedure Performed:: Right hallux amputation Description of Surgical Findings:: Hemostasis: Well-padded pneumatic right ankle tourniquet, 250 mmHg, 19 minutes Materials: 3-0 Vicryl, 2-0 nylon, 3-0 nylon Specimen sent Complications: None The patient tolerated the procedure and anesthesia well. The patient was transported to the PACU with vital signs stable and vascular status intact to the surgical limb. To ice and elevate for pain and inflammation management. Postoperative x-rays were reviewed prior to leaving the operating room. Adequate right foot hallux amputation is noted without residual soft tissue emphysema, acute injuries, or foreign body. Postoperative orders were entered electronically. Surgeon: Jasmin Jaime upholstery covers inspector: None (Esau Del Valle DPM, PGY2) Type of Anesthesia: Local (Preoperative 1:1 mix 1% lidocaine plain, 0.25% Marcaine plain typical first ray block fashion right foot, 17 cc) and MAC Specimen's removed: 1. Soft tissue and bone right hallux sent to pathology 2. Soft tissue and bone right hallux sent to microbiology (aerobic, anaerobic, acid-fast, fungal) 3. Right hallux clearance bone sent to pathology 4. Right hallux clearance bone sent to microbiology (aerobic, anaerobic, acid-fast, fungal) Drains: none Estimated Blood Loss (mL): <20 mL Description of Procedure: Indications: This 60-year-old male with significant past medical history of diabetes, hypertension, depression, GERD has had recurrent nonhealing ulcer of the right hallux intermittently for the past 10 years. In the more recent time setting he did have an infection that required an incision and drainage with antibiotic use. It appears he also may have a pathological fracture and osteomyelitis is suspected. The soft tissue envelope has calmed down with oral antibiotics and he presents for hallux amputation. It is also noted he is a diabetic and has a history of small vessel disease in which he has been evaluated by vascular specialist and placed on Pentoxifylline. He does have capillary fill time less than 3 seconds to the digit and edema. The dorsal hallux at this time has a fibrous necrotic plug with resolved purulence and streaking erythema since he has been on oral Augmentin and ciprofloxacin. The preoperative indications, planned procedure, possible benefits, risk, complications, and anticipated healing time management were discussed in detail.? He understands and elects proceed with surgery at this time.? No guarantees were made.? He understands risks and complications may include but are not limited to the following: pain, swelling, scarring, need for further surgery, loss of limb, function, life, blood clot, allergic reaction, transfer lesion or ulcer.? The informed surgical consent and limb were signed for right hallux amputation.? Pre-operative medical optimization was confirmed primary care physician clearance and diagnostic data was reviewed I answered all his questions. Procedure in detail: The patient was transported to the operating room via cart and placed on the operating table in the supine position.? Final verification of the patient, surgery, limb designation was performed via the timeout procedure.? He is already been taking oral Augmentin in the outpatient setting to cover his strep coverage. MAC anesthesia was initiated by the anesthesia team.? I administered the local anesthesia as noted.? A well-padded pneumatic right ankle tourniquet was placed.? The right lower extremity was prepped and draped in the usual aseptic manner.? Surgery began as the following: Esmarch bandage was used for exsanguination and the tourniquet was inflated.? Attention was first directed to the medial aspect of the right foot in which the ulcer and hallux was excised and the incision extended around the first toe in a fishmouth manner to remove the toe in total.? This incision was made directly down to bone.? Care was taken to identify, protect, and retract neurovascular structures at this point and throughout the remainder of the surgery.? The distal and proximal aspects of this incision were extended to carefully dissect out the bones of the hallux toe taking care to preserve part of the viable skin to use for the distalmost flap. The devitalized soft tissue and bone were removed from the table and sent to both microbiology and pathology as noted.? The wound site was copiously irrigated with normal saline.? At this time new gloves, immediate drapes, and clean instrumentation were utilized for the remainder of the case.? A proximal right hallux clearance fragment was obtained and sent to both microbiology and pathology.? Saline irrigation was performed and the skin edges were reapproximated in a non-tensile manner utilizing a few deep Vicryl sutures. Next, the skin sutures were applied with 2-0 and 3-0 nylon utilizing vertical, simple, and horizontal mattress suture techniques.? Care was taken to reapproximate the flap skin closure site utilizing no touch technique.? ? Postoperative x-rays were obtained as noted.? A postoperative dressing consisting of Betadine soaked adaptic, gauze, abdominal pad, Kerlix and an Deni wrap was applied. After procedure: The patient tolerated the procedure anesthesia well.? He was transferred to the PACU vital signs stable and vascular status intact to the right lower extremity.? He was advised to ice and elevate for pain and inflammation management.? To maintain a nonweightbearing status to the right foot with surgical shoe and walker for protection. It is okay to heel weight-bear for brief transfers. Pain medication was prescribed and he was advised on safe and proper use in the outpatient setting when he returns home later today. He will also keep his dressing clean, dry, and intact until [facility].? To complete course of oral antibiotics. He understands additional antibiotics may be required pending his clinical and micro/pathology results. To continue continue Pentoxifylline.? Postoperative orders were entered electronically. Jasmin Jaime DPM, [facility] Grafts/Implants Used: none Complications none Admit VTE Documentation VTE Present on Admission: No VTE Mechan Device Prophylaxis: SCD's VTE Pharm Prophylaxis ordered?: Yes
== END 2021-10-31 09:45 | disposition home or self-care (01) ==
LOC: SDC 05:55 → AC 05:56
PROVIDERS: PCP Family Medicine; Referring Provider Podiatrist; Visit Provider Podiatrist
PROC: (CPT 28820; principal; 2021-10-31 07:15)
DX: E11.621 Type 2 diabetes mellitus with foot ulcer (principal); L97.514 Non-pressure chronic ulcer of other part of right foot with necrosis of bone; M86.171 Other acute osteomyelitis, right ankle and foot; E11.69 Type 2 diabetes mellitus with other specified complication; I10 Essential (primary) hypertension; K21.9 Gastro-esophageal reflux disease without esophagitis; F32.A Depression, unspecified; Z79.84 Long term (current) use of oral hypoglycemic drugs; Z79.899 Other long term (current) drug therapy
CPT/HCPCS: 28820; 73620; 76000; 82962; 87015; 87070; 87075; 87077; 87102; 87116; 87186; 87205; 87206; 88305; 88311; J7120; J2405

== ENCOUNTER → 2021-12-26 | Outpatient (CLI) | payer OTHER, SELFPAY ==
--- NOTE | 2021-12-26 13:40 | VDLE_ITS ---
Reason For Study: DVT RIGHT LEFT GSV is normal. GSV is normal. CFV is compressible, spontaneous, phasic, CFV is compressible, spontaneous, phasic, competent and demonstrates normal competent, and demonstrates normal augmentation. augmentation. FV is compressible, spontaneous, phasic, FV is compressible, spontaneous, phasic, competent and demonstrates normal competent and demonstrates normal augmentation. augmentation. POP V is compressible, spontaneous, phasic, POP V is compressible, spontaneous, phasic, competent and demonstrates normal competent and demonstrates normal augmentation. augmentation. T/P Trunk is compressible. T/P Trunk is compressible. PTV is compressible. PTV is compressible. RT PerV is compressible. LT PerV is compressible. Procedure This is a venous duplex using B-mode, color flow and spectral Doppler. Exam performed in department. A preliminary report was called and/or faxed to [facility]. VL/Venous Duplex US - Stewart Extrem Interpretation Summary Deep veins of the lower extremities are bilaterally patent and compressible seg mentally. There is no evidence of deep vein thrombosis on either side. Valvular competence appears in tact within the proximal deep venous systems bilaterally. The great saphenous veins appear bila terally patent and compressible segmentally. Ordering Physician: David Schofield Referring Physician: Fernando Fu Performed By: Yulia Hurtado RVT
== END | disposition home or self-care (01) ==
LOC: CVS 13:38
PROVIDERS: PCP Family Medicine; Referring Provider Podiatrist; Visit Provider Podiatrist
DX: I82.401 Acute embolism and thrombosis of unspecified deep veins of right lower extremity (principal)
CPT/HCPCS: 93970

== ENCOUNTER → 2022-04-01 | Outpatient (CLI) | payer OTHER, SELFPAY ==
--- NOTE | 2022-04-01 08:10 | RAD_ITS ---
STUDY: XR Shoulder Min 2 Views REASON FOR EXAM: Male, 61 years old. PAIN TECHNIQUE: XR Shoulder Min 2 Views LEFT COMPARISON: None. FINDINGS: Normal glenohumeral articulation. Normal acromioclavicular joint. Normal acromion. Normal humeral head and visualized proximal humerus. The soft tissue structures are unremarkable. Normal visualized pulmonary apex. RAD/Shoulder min 2 Views IMPRESSION: There are no acute findings of the shoulder. Electronically Signed: Raffy Barth MD at 17:01 EST ,
--- NOTE | 2022-04-01 08:11 | RAD_ITS ---
STUDY: XR Shoulder Min 2 Views REASON FOR EXAM: Male, 61 years old. PAIN TECHNIQUE: XR Shoulder Min 2 Views RIGHT COMPARISON: None. FINDINGS: Normal glenohumeral articulation. Normal acromioclavicular joint. Normal acromion. Normal humeral head and visualized proximal humerus. The soft tissue structures are unremarkable. Normal visualized pulmonary apex. RAD/Shoulder min 2 Views IMPRESSION: There are no acute findings of the shoulder. Electronically Signed: Raffy Barth MD at 17:01 EST ,
== END | disposition home or self-care (01) ==
LOC: RAD 04-07 17:26
PROVIDERS: PCP Family Medicine; Visit Provider Physician Assistant
DX: M25.511 Pain in right shoulder (principal); M25.512 Pain in left shoulder
CPT/HCPCS: 73030

== ENCOUNTER → 2022-04-18 | Outpatient (CLI) | payer OTHER, SELFPAY ==
--- NOTE | 2022-04-18 07:33 | MRI_ITS ---
STUDY: MRI RIGHT SHOULDER REASON FOR EXAM: Male, 61 years old. PAIN, SPRAIN PAIN, SPRAIN TECHNIQUE: Standardized fat and water weighted pulse sequences were obtained in all 3 orthogonal planes. COMPARISON: xr 04.01.22. FINDINGS: There is a full-thickness tear and tendinosis of the supraspinatus tendon. There is infraspinatus tendinosis with tendon thickening, but without a demonstrated tendon tear. Normal subscapularis tendon. Normal teres minor tendon. There is fatty infiltration (fatty streaks) of the supraspinatus muscle (Goutallier Stage I). There is fatty infiltration (fatty streaks) of the infraspinatus muscle (Goutallier Stage I). Normal subscapularis muscle. Normal teres minor muscle. Normal glenohumeral articulation. Subchondral cysts of the humeral head. There is suspected tear with nonvisualization of the intracapsular long biceps tendon. Normal intracapsular long biceps tendon. Normal labrum. Normal capsulo- ligamentous complex. Normal rotator interval. 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 There is minimal fluid distention of the subacromial bursa, consistent with mild subacromial-subdeltoid bursitis. Normal visualized coracohumeral and coracoacromial ligaments. Normal quadrilateral space. Normal axillary space. Normal deltoid muscle. Normal trapezius muscle. MRI/Upper Ext Joint Only(Routine) IMPRESSION: There is a full-thickness tear and tendinosis of the supraspinatus tendon. Mild infraspinatus tendinosis. Very mild atrophy of the supraspinatus and infraspinatus muscles. Suspected tear with nonvisualization of the intracapsular long biceps tendon. Acromioclavicular arthrosis. Electronically Signed: Raffy Barth MD at 20:57 EST Reading Location ID and State: [facility] / [place] , Service support ,
== END | disposition home or self-care (01) ==
LOC: MRI 07:29
PROVIDERS: PCP Family Medicine; Referring Provider Physician Assistant; Visit Provider Physician Assistant
DX: S43.491A Other sprain of right shoulder joint, initial encounter (principal); M25.511 Pain in right shoulder; X58.XXXA Exposure to other specified factors, initial encounter
CPT/HCPCS: 73221

== ENCOUNTER → 2022-05-14 | Outpatient (CLI) | payer OTHER, SELFPAY ==
--- NOTE | 2022-05-14 06:45 | MRI_ITS ---
EXAM: MR LEFT UPPER EXTREMITY WITHOUT INTRAVENOUS CONTRAST, SHOULDER CLINICAL INDICATION: SPRAINDECREASED ROM, DECREASED STRENGTH TECHNIQUE: Multiplanar and multisequence MR images of the left shoulder without intravenous contrast. This report was created using [employer] report [employer] technology. COMPARISON: July 25, 2020 MR left shoulder. FINDINGS: TENDONS: SUPRASPINATUS: Moderate grade partial-thickness articular and intrasubstance tear of the supraspinatus tendon at and adjacent to the footprint of the tendon. INFRASPINATUS: Unremarkable. No infraspinatus tendon tear. SUBSCAPULARIS: Unremarkable. Intact. TERES MINOR: Unremarkable. Intact. BICEPS BRACHII, LONG HEAD: Greater attenuation/tearing involving the long head of the biceps tendon within the bicipital groove and along the proximal extracapsular portion with less conspicuous medial subluxation at the level of the lesser tubercle than was previously seen. Bicipital tenosynovitis fluid. LIGAMENTS: GLENOHUMERAL: Unremarkable. Intact. MUSCLES: Mild atrophy/fatty infiltration of the teres minor muscle as before. FLUID: At least a moderate amount of fluid in the subacromial/subdeltoid bursa is compatible with bursitis. No joint effusion. CARTILAGE: Unremarkable. No focal chondral defects glenoid. GLENOID LABRUM: Unremarkable. Intact, limited evaluation on non-arthrographic exam. BONES/JOINTS: Question abnormal signal and irregularity involving the superior labrum raising the possibility of a superior labral tear. This can be further characterized with MR arthrography. Moderate to severe hypertrophic degenerative changes acromioclavicular joint with moderate mass effect on the underlying soft tissues. Small to moderate amount of glenohumeral joint fluid with mild synovitis. Type II acromion with curved undersurface. No subacromial enthesophyte or os acromiale. No coracoacromial ligament thickening. No bone marrow signal alterations. OTHER SOFT TISSUES: Unremarkable. No rotator interval edema. OTHER FINDINGS: Neurovascular structures are unremarkable. MRI/Upper Ext Joint Only(Routine) IMPRESSION: 1. Moderate grade partial-thickness articular and intrasubstance tear of the supraspinatus tendon at and adjacent to the footprint of the tendon. 2. Greater attenuation/tearing involving the long head of the biceps tendon within the bicipital groove and along the proximal extracapsular portion with less conspicuous medial subluxation at the level of the lesser tubercle than was previously seen. Bicipital tenosynovitis fluid. 3. Question abnormal signal and irregularity involving the superior labrum raising the possibility of a superior labral tear. This can be further characterized with MR arthrography. 4. Subacromial/subdeltoid bursitis. Electronically Signed: Berry Leija MD at 22:05 EST ,
== END | disposition home or self-care (01) ==
LOC: MRI 06:37
PROVIDERS: PCP Family Medicine; Referring Provider Physician Assistant; Visit Provider Physician Assistant
DX: S43.492D Other sprain of left shoulder joint, subsequent encounter (principal); X58.XXXD Exposure to other specified factors, subsequent encounter
CPT/HCPCS: 73221

== ENCOUNTER 2022-09-14 05:28 | Day surgery (SDC) | payer OTHER, SELFPAY ==
[2022-08-26 10:33] LABS: Hemoglobin 14.6 g/dL (13.0-16.5); Mean Corpuscular Hgb 30.6 pg (27.0-32.0); Mean Corpuscular Volume 90.1 fL (80-94); Mean Platelet Vol. 9.6 fl (6.2-12.0); Platelet Count 294 K/mm3 (150-450); RBC Distribution Width CV 12.7 % (11.6-14.6); RBC Distribution Width SD 41.7 fl (35.1-43.9); Red Blood Count 4.77 M/mm3 (4.6-6.2); White Blood Count 7.8 K/mm3 (4.4-11.0)
[2022-08-26 11:10] LABS: ALB/GLOB Ratio 0.9 RATIO (0.9-2.4); AST(SGOT) 19 U/L (15-37); Alanine Aminotransfer ALT/SGPT 33 U/L (16-61); Albumin, Serum 3.7 g/dL (3.2-5.0); Alkaline Phosphatase 62 U/L (45-117); Anion Gap 6 (5-15); BUN 18 mg/dL (7-18); BUN/Creat Ratio 14.9 RATIO (10-20); Calcium,Total 9.2 mg/dL (8.5-10.1); Chloride 109 mmol/L (98-107); Creatinine, Serum 1.21 mg/dL (0.70-1.30); EST Glomerular Filtration Rate 64 mL/min (>60); Est Glom Filt Rate - Afr Amer 78 mL/min (>60); Globulin 3.9 g/dL (2.2-4.2); Glucose 136 mg/dL (74-106); Potassium 4.4 mmol/L (3.5-5.1); Protein, Total 7.6 g/dL (6.4-8.2); Sodium Level 139 mmol/L (136-145)
[2022-08-28 15:40] LABS: Hemoglobin A1c 7.4 % (3.8-5.6)
[2022-09-14 06:16] VITALS: BP 143/77; PULSE 72; RESP 16; TEMP 36.8; O2SAT 98; BMI 32.5
[2022-09-14 06:19] LABS: Bedside Glucose 143 mg/dL (74-106)
[2022-09-14] MEDS: Lactated Ringers 1,000 ML 15 ML IV (06:40)
[2022-09-14] MEDS: Cefazolin 2 GM in 0.9% Normal Saline 100 ML IV (07:35)
[2022-09-14] MEDS: Epinephrine (1 mg/ml) 1 MG/ML VIAL ×3 (07:45→08:47)
[2022-09-14] MEDS: Lidocaine 1%/Epi 1:100 (30ml) 30 ML VIAL (09:00)
--- NOTE | 2022-09-14 09:32 | PCM.OPRPT ---
Report of Operation Date of Procedure: 09/14/22 Pre-Operative Diagnosis: SAIS, AC joint arthrosis, chronically torn biceps tendon, possible rotator cuff tear Post-Operative Diagnosis: same with full thickness RCT Surgery/Procedure Performed:: ASD, Abigail procedure, intra-articular debridement, RCR Surgeon: Carlitos Strauss home furnishings sales representative: Milan Arora Type of Anesthesia: General/Regional Anesthesiologist: Charlie Calle Admmarilu VTE Documentation VTE Present on Admission: No VTE Pharm Prophylaxis ordered?: No Reason prophylaxis not ordered:: Procedure Not Indicated
[2022-09-14 09:58] VITALS: BP 143/77; BP 98/76; PULSE 55; RESP 16; TEMP 36.3; O2SAT 94
[2022-09-14 10:00] VITALS: BP 100/68; BP 143/77; PULSE 60; RESP 16; O2SAT 96
[2022-09-14 10:15] VITALS: BP 143/77; BP 95/57; PULSE 60; RESP 16; O2SAT 95
[2022-09-14 10:21] VITALS: BP 104/62; BP 143/77; PULSE 65; RESP 16; TEMP 36.2; O2SAT 96
[2022-09-14 10:31] LABS: Bedside Glucose 181 mg/dL (74-106)
[2022-09-14 10:50] VITALS: BP 143/77
--- NOTE | 2022-09-14 10:54 | PCM.OPRPT ---
Report of Operation Date of Procedure: 09/14/22 Pre-Operative Diagnosis: CTS Left Post-Operative Diagnosis: same Surgery/Procedure Performed:: RDTCL Left Description of Surgical Findings:: Report of Operation Date of Procedure: Preoperative Diagnosis: Left Carpal Tunnel Syndrome Postoperative Diagnosis: same Procedure Performed: Left Carpal Tunnel Release Anesthesia: Lorraine Veloz Anesthesiologist: Charlie Calle M.D. Description of Procedure: With appropriate informed consent, the patient was taken to the operative suite. After the induction of Lorraine block, the left upper extremity was prepared and draped sterilely. Subsequently, a midline longitudinal incision was made in the base of the left palm, in line with the fourth ray with #15 blade scalpel. Hemostasis was perfected with bipolar electrocautery. Scissor dissection was carried down through the subcutaneous tissue to the palmar fascia. A self-retaining retractor was placed. In sequence, the buchanan fascia, then the deep transverse carpal ligament was divided with the scalpel under direct visualization. Thereafter, the most proximal and distal aspects of the deep transverse carpal ligament were divided with scissors under direct visualization. The wound was copiously irrigated and closed with interrupted sutures of 4-0 nylon. A sterile well-padded dressing and Deni wrap were applied. The tourniquet was released. Excellent blood flow was returned to the left upper extremity. The patient was transferred to the PACU in stable and satisfactory condition. Carlitos Strauss DO Surgeon: Carlitos Strauss Type of Anesthesia: Lorraine Veloz Anesthesiologist: Charlie Calle Admmarilu VTE Documentation VTE Present on Admission: No VTE Mechan Device Prophylaxis: SCD's and Thigh High SHELBY Hose Reason prophylaxis not ordered:: Treatment Not Indicated
== END 2022-09-14 11:03 | disposition home or self-care (01) ==
LOC: SDC 05:29 → AC 05:30
PROVIDERS: Anesthesiology; PCP Family Medicine; Referring Provider Orthopaedic Surgery; Visit Provider Orthopaedic Surgery
PROC: (CPT 29827; principal; 2022-09-14 07:10)
DX: M75.112 Incomplete rotator cuff tear or rupture of left shoulder, not specified as traumatic (principal); E11.9 Type 2 diabetes mellitus without complications; M75.42 Impingement syndrome of left shoulder; S46.219A Strain of muscle, fascia and tendon of other parts of biceps, unspecified arm, initial encounter; M19.012 Primary osteoarthritis, left shoulder; I10 Essential (primary) hypertension; E66.8 Other obesity; Z68.32 Body mass index [BMI] 32.0-32.9, adult; Z79.82 Long term (current) use of aspirin; Z79.899 Other long term (current) drug therapy; Z87.891 Personal history of nicotine dependence
CPT/HCPCS: 29827; 29824; 29826; 64415; 01630; 36415; 80053; 82962; 83036; 85027; J7120; J2405

== ENCOUNTER → 2022-12-10 | Outpatient (CLI) | payer OTHER, SELFPAY ==
[2022-12-10 10:53] LABS: Anion Gap 6 (5-15); BUN 21 mg/dL (7-18); BUN/Creat Ratio 18.4 RATIO (10-20); Calcium,Total 9.3 mg/dL (8.5-10.1); Chloride 110 mmol/L (98-107); Cholesterol 224 mg/dL (200); Creatinine, Serum 1.14 mg/dL (0.70-1.30); EST Glomerular Filtration Rate 69 mL/min (>60); Est Glom Filt Rate - Afr Amer 83 mL/min (>60); Glucose 144 mg/dL (74-106); Hemoglobin A1c 7.1 % (3.8-5.6); High Density Lipoprotein 51 mg/dL; Potassium 4.4 mmol/L (3.5-5.1); Sodium Level 140 mmol/L (136-145); Triglycerides 201 mg/dL; Very Low Density Lipoprotein 40 mg/dL (5-40)
== END | disposition home or self-care (01) ==
LOC: MTLAB 08:26
PROVIDERS: PCP Family Medicine; Visit Provider Family Medicine
DX: E11.9 Type 2 diabetes mellitus without complications (principal)
CPT/HCPCS: 36415; 80048; 80061; 83036

== ENCOUNTER 2022-12-11 07:00 | Outpatient (RCR) | payer OTHER, SELFPAY ==
--- NOTE | 2022-09-21 13:15 | HP.PTEVAL_ITS ---
Patient's Visit Information CARA PEOPLES is a 61 year old M referred to Physical Therapy by Dr. Carlitos Strauss DO with a diagnosis of L shoulder rot cuff repair 09/14/22. Date of Evaluation: 09/21/22 Physical Therapist: Raffy Jimenez, PT, ATC - Visit Plan Frequency: 2-3x /Week Duration: 4-6 Weeks Plan: L shoulder PROM x 4-6 weeks, followed x AROM x 4-6 weeks, then strengthening consisting of rot cuff and scap stab ex's. - Subjective DOS: 09/14/22. Pt notes he had his L rotator cuff repaired at that time. Pt reports he attempted to lift a heavy object and experienced severe pain in his L shoulder. Pt reports he has been performing HEP of AROM elbow exercises and pendulums. Pt is R hand dominant. 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 No sleep difficulty at this time, but patient is sleeping on a recliner. Pt denies tingling and numbness in L UE at this time. Pt denies any PMHx of L shoulder complications prior to this surgery. 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 0/10 pain while sitting here in the clinic, 3/10 pain at worst - Pain L shoulder Pain Intensity (Out of 10): 0 Pain Intensity Range: 3 - Objective Neuro: B UE sensation is WNL to light touch. B bicipital reflex= 1/3. Observation: Incisions are healing well. No signs of infection. ROM: R shoulder AROM: flex= 170, abd= 125, ER= 50, IR WNL. L shoulder PROM: flex= 70, abd= 70 degrees. MMT: R shoulder flex= 21, abd= 20, IR= 25, ER= 25 #F. L shoulder not tested at this time - Balance/Special Test Scores Quick DASH Score: 56.8175 - Goals Goal 1:: Decrease L shoulder pain x 50% to aid with IADLs Goal Time Frame: 4-6 Weeks Goal 2:: Increase L shoulder flex and abd ROM x 40 degrees to aid with overhead lifting Goal Time Frame: 4-6 Weeks Goal 3:: Increase L shoulder strength to be equal to 90% of R shoulder strength to aid with RTW Goal Time Frame: 4-6 Weeks Goal 4:: I with HEP Goal Time Frame: 4-6 Weeks - Rehabilitation Potential Physical Therapy Diagnosis: Pt has L shoulder pain, weakness, and limited ROM secondary to L shoulder rot cuff repair Rehabilitation Potential: Good - Anticipated Interventions Patient/Client Instruction: Educate patient on: Condition, Plan of Care For the Purpose of:: To improve self management Therapeutic Exercise to Include: Strength training, Flexibilty training, Passive ROM, Active ROM, Scapular Strength/Stabilization For the Purpose of:: To decrease pain, To increase ROM, To improve muscle performance and motor function Cryotherapy (ice pack, ice massage): Yes For the Purpose of:: To decrease pain Thank you for the opportunity to evaluate your patient. For Medicare and Medicare HMO plans, please review the plan of care and approve it. It will need to be FAXED BACK to us at [phone] for Medicare purposes. For Medicare only, by signing this I certify the plan of care. Please let me know if there are questions or concerns regarding this plan of care. Physician Signature: Date :
--- NOTE | 2022-10-16 11:03 | HP.PTREVAL_ITS ---
Re-Evaluation Intro: Dr. Carlitos Strauss, DO, It has been my pleasure to treat CARA PEOPLES over the last 12 visits for L shoulder rot cuff repair 09/14/22. Please see the progress note below for an update on the physical therapy plan of care! Subjective Subjective: Pt reports he is ready to lose the sling. Objective Objective/Function: Pt reports L shoulder pain ranges from 0-2/10 L shoulder AROM: flex= 40, abd= 40, ER= 0, L shoulder PROM: flex= 90, abd= 115 Plan Plan Plan: L shoulder PROM x 4-6 weeks, followed x AROM x 4-6 weeks, then s trengthening consisting of rot cuff and scap stab ex's. Balance/Gait/Functional tests Balance/Special Test Scores Quick DASH Score: 61.3625 Goals Goals Goal 1:: Decrease L shoulder pain x 50% to aid with IADLs Goal Time Frame: 4-6 Weeks Goal Progress: Progressing Goal 2:: Increase L shoulder flex and abd ROM x 40 degrees to aid with overhead lifting Goal Time Frame: 4-6 Weeks Goal Progress: Progressing Goal 3:: Increase L shoulder strength to be equal to 90% of R shoulder strength to aid with RTW Goal Time Frame: 4-6 Weeks Goal Progress: Progressing Goal 4:: I with HEP Goal Time Frame: 4-6 Weeks Goal Progress: Progressing Anticipated Interventions Anticipated Interventions Patient/Client Instruction: Educate patient on: Condition and Plan of Care For the Purpose of:: To improve self management Therapeutic Exercise to Include: Strength training, Flexibilty training, Passive ROM, Active ROM and Scapular Strength/Stabilization For the Purpose of:: To decrease pain, To increase ROM and To improve muscle performance and motor function Cryotherapy (ice pack, ice massage): Yes For the Purpose of:: To decrease pain Re-Evaluation Ending Re-evaluation ending: Please do not hesitate to contact me at [phone] by phone or if you have questions or concerns regarding this new plan of care! Sincerely, Raffy Jimenez, PT, ATC
--- NOTE | 2022-12-11 07:20 | HP.PTDCSUM ---
Discharge Summary D/C summary: It has been my pleasure to treat CARA PEOPLES referred by Dr. Carlitos Strauss DO, with the diagnosis of L shoulder rot cuff repair 09/14/22 for a total of 34 visit(s). Discharge Date: Please see the following information for a summary of their discharge status. Subjective Subjective: I dont have any pain today. And the doctor says I'm done Pain L shoulder: Pain Intensity (Out of 10): 0 Overall Improvement % Improvement: 95 Objective Objective/Function: L shoulder pain 0/10 L shoulder MMT: flex=10, abd=16 , ER= 26, IR= 29 #F L shoulder ROM: rliq=726 , abd=95 , ER= 50 , IR=minimal restriction Pt is I with HEP Goals Goal 1:: Decrease L shoulder pain x 50% to aid with IADLs Goal Progress: Goal Met Goal 2:: Increase L shoulder flex and abd ROM x 40 degrees to aid with overhead lifting Goal Progress: Progressing Goal 3:: Increase L shoulder strength to be equal to 90% of R shoulder strength to aid with RTW Goal Progress: Progressing Goal 4:: I with HEP Goal Progress: Goal Met Plan Plan: Discharge to HEP D/C Information d/c sentence: If there are questions or concerns regarding this patient's physical therapy, please feel free to call me at [phone]. Thank you for the referral of this patient. Sincerely, Raffy Jimenez, PT, ATC Balance/Gait/Functional tests Balance/Special Test Scores Quick DASH Score: 9.0900 Improvement % Improvement: 95
== END 2022-12-11 07:59 | disposition home or self-care (01) ==
LOC: PT 07:00
PROVIDERS: PCP Family Medicine; Referring Provider Orthopaedic Surgery; Visit Provider Orthopaedic Surgery
DX: M75.112 Incomplete rotator cuff tear or rupture of left shoulder, not specified as traumatic (principal); M75.42 Impingement syndrome of left shoulder; M25.512 Pain in left shoulder
CPT/HCPCS: 97110; 97140; 97161; 97164

== ENCOUNTER 2023-01-31 10:13 | Emergency (ER) | payer OTHER, SELFPAY ==
[2023-01-31 10:14] VITALS: BP 149/86; PULSE 81; RESP 16; TEMP 36.3; O2SAT 99; BMI 31.8
--- NOTE | 2023-01-31 10:30 | CT_ITS ---
INDICATION: left flank pain. PRIOR GASTRIC BYPASS AND MECKEL''S DIVERTICULUM SURGERY EXAMINATION: CT ABDOMEN AND PELVIS WITHOUT CONTRAST - CT Abdomen And Pelvis W/O Contrast Injection TECHNIQUE: Helically acquired images were obtained of the abdomen and pelvis without oral or IV contrast. A radiation dose optimization technique was used for this scan. IV Contrast dosage and agent: None. Oral contrast: None. RADIATION DOSAGE (If Supplied By Facility): CTDIvol = ( 15.59 ) mGy, DLP = ( 825.78 ) mGycm COMPARISON: Prior study dated: 02/08/2014. FINDINGS: LOWER CHEST: Small right lower lobe granuloma. No cardiomegaly or pericardial effusion. LIVER: Homogeneous. No focal lesion is seen on this exam without contrast. GALLBLADDER AND BILIARY TREE: Layering gallstones. No gallbladder distension or wall edema. No intra- or extrahepatic biliary ductal dilation. PANCREAS: No focal cystic or solid mass. SPLEEN: Calcified granuloma. ADRENAL GLANDS: No nodules. KIDNEYS AND URETERS: Right renal cysts are again seen, the largest measures about 3.4 cm simple further follow-up exam is needed. Mild left perinephric stranding with minimal prominence of the left renal pelvis without evidence of ureteral stones. PERITONEUM: No ascites or free air. No other fluid collection. BOWEL: Status post gastric surgery unchanged. Normal in caliber small bowel loops. No evidence of acute diverticulitis. Unremarkable appendix. LYMPH NODES: No enlarged mesenteric or retroperitoneal lymph nodes. VESSELS: Aorta is non-dilated. URINARY BLADDER: Unremarkable. REPRODUCTIVE ORGANS: No pelvic masses. ABDOMINAL WALL: Small bilateral inguinal hernias containing fat. BONES: Mild degenerative changes of the spine. CT/Abdomen/Pelvis without Cont IMPRESSION: 1. Nonspecific mild left perinephric stranding without evidence of ureteral stones. Pyelonephritis is possible. 2. Cholelithiasis. 3. Otherwise no focal acute inflammatory process. 4. Status post gastric surgery. Electronically Signed: Luis Enrique Hameed MD at 11:26 EDT ,
--- NOTE | 2023-01-31 10:32 | EDS_ITS ---
HPI History of Present Illness Chief Complaint: Flank Pain Informant: patient and spouse/S.O. Onset/Context/Timing Onset: Yesterday Context: Gradual Onset Timing: Waxes and wanes Current Severity: Moderate Maximum Severity: Moderate Narrative Narrative: Presents secondary to left low back/flank pain that started last evening. He denies any recent change in activity. No hematuria. He usually only urinates twice a day at baseline has not noted any difference in this. [facility] Medical History Asthma Chronic ulcer of great toe of right foot with fat layer exposed Depression Diabetes Dietary restriction DM type 2 (diabetes mellitus, type 2) HTN (hypertension) Neuropathy Nondisplaced fracture of proximal phalanx of great toe PAOD (peripheral arterial occlusive disease) RLS (restless legs syndrome) Ruptured meckels diverticulum with sepsis Sleep apnea Undescended testicle Wears glasses Home Medications cholecalciferol (vitamin D3) 25 mcg (1,000 unit) tablet 1,000 unit PO DAILY supplement 02/26/14 [History Last Taken Unknown] metformin 1,000 mg tablet 1,000 mg PO BIDCM diabetes 02/26/14 [History Last Taken 09/10/21] ascorbate calcium (vitamin C) 500 mg tablet 500 mg PO DAILY vitamin 07/22/20 [History Last Taken Unknown] bupropion HCl 300 mg 24 hr tablet, extended release (Wellbutrin XL) 300 mg PO QAM mood 07/22/20 [History Last Taken Unknown] multivitamin (Multiple Vitamins tablet) 1 tablet PO DAILY vitamin 07/22/20 [History Last Taken 09/11/21] omega-3 fatty acids 1,000 mg capsule (Fish Oil Concentrate) 1,000 mg PO DAILY vitamin 07/22/20 [History Last Taken Unknown] calcium carbonate 600 mg calcium (1,500 mg) tablet 600 mg PO DAILY supplement 07/21/21 [History Last Taken Unknown] diltiazem HCl 360 mg capsule,extended release 24 hr 240 mg PO QHS heart 07/21/21 [History Last Taken 09/10/21] pentoxifylline 400 mg tablet,extended release 400 mg PO TID circulation 10/12/21 [History Last Taken Unknown] dulaglutide 0.75 mg/0.5 mL subcutaneous pen injector (Trulicity) 1 ea subcut GONZALEZ 10/29/21 [History Last Taken Unknown] ciprofloxacin HCl 500 mg tablet (Cipro) 500 mg PO BID #14 tabs 01/31/23 [Rx Last Taken Unknown] oxycodone-acetaminophen 5 mg-325 mg tablet (Percocet) 1 tab PO Q8H PRN pain 3 days #10 tabs 01/31/23 [Rx Last Taken Unknown] Allergy/AdvReac Type Severity Reaction Status Date / Time Ygjytqo-MWS-ChD Reductase Allergy Other Verified 01/31/23 10:13 Inhibitor [Nkwjgfy-Gep-Unb Reductase Inhibitor] Family History Brother Cancer pancreatic cancer Father Diabetes Heart disease Hypertension Mother Hypertension Surgical History History of angioplasty of peripheral vessel History of gastric bypass History of nasal polypectomy History of testicular surgery History of tonsillectomy History of uvulectomy Social History household members: spouse housing: house Smoking Status: Never smoker alcohol intake: current alcohol intake frequency: holidays/special occasions only what type of physical activity do you participate in: none do you feel safe at home: Yes ROS ROS ED Constitutional Constitutional ED: Denies chills or fever(s) Eyes Eyes: Denies change in vision or discharge from eye(s) ENT ENT ED: Denies discharge from eye(s), rhinorrhea or sore throat Cardiovascular Cardiovascular: Denies chest pain or palpitations Respiratory/Chest Respiratory/Chest: Denies cough or dyspnea Gastrointestinal Gastrointestinal: Denies abdominal pain, nausea or vomiting Genitourinary Genitourinary ED: Denies difficulty urinating or dysuria Musculoskeletal Musculoskeletal: Reports back pain; Denies extremity pain Integumentary Denies Abrasions or rash Neurologic Neurologic: Denies headache(s) or weakness Allergic/Immunologic Allergic/Immunologic ED: Denies lip swelling or urticaria EXAM Physical Exam Const Vital Signs: 01/31/23 10:14 Temperature 97.4 F L Temperature Source Temporal Pulse Rate 81 Respiratory Rate 16 Blood Pressure 149/86 H Blood Pressure Mean 107 Pulse Ox 99 Oxygen Delivery Method Room Air Positive well nourished and well developed General Appearance ED: well developed HEENT Reports normocephalic and head/scalp atraumatic Eyes PERRL and EOMs intact bilaterally Neck supple Chest Wall inspection of chest normal and palpation of chest normal Resp normal respiratory effort and clear to auscultation bilaterally Cardio regular rate and regular rhythm GI GI Narrative: Abdomen soft and slightly distended. No focal tenderness to palpation. Hypoactive bowel sounds. Palpation: soft Back/Spine no CVA tenderness Back/Spine Narrative: Tenderness in the left lumbar paraspinal muscles. No true CVA tenderness. Extremity normal to inspection Neuro oriented x3 and no sensory deficits noted Sensorium / Orientation: alert Motor Exam: strength 5/5 throughout Psych mental status grossly normal Skin no rashes or lesions noted MDM MDM MDM Narrative Medical decision making narrative: Patient declines anything for pain at this time. IV fluids initiated. Labwork obtained to evaluate for leukocytosis, anemia, and electrolyte derangement. Urinalysis obtained to evaluate for infection/hematuria. CT flank obtained to evaluate for colitis or bowel distention, kidney stone, urinary retention. Lab Data Labs: Laboratory Results - last 24 hr 01/31/23 01/31/23 10:26 12:31 WBC 12.8 H RBC 5.09 Hgb 15.4 Hct 46.6 MCV 91.6 MCH 30.3 MCHC 33.0 RDW Std Deviation 43.9 RDW Coeff of Fabian 13.1 Plt Count 296 MPV 9.4 Immature Gran % (Auto) 0.300 Neut % (Auto) 75.7 H Lymph % (Auto) 14.9 L Stanton % (Auto) 7.4 Eos % (Auto) 1.1 Baso % (Auto) 0.6 Absolute Neuts (auto) 9.7 H Absolute Lymphs (auto) 1.90 Nucleated RBC % 0 Sodium 140 Potassium 3.9 Chloride 107 Carbon Dioxide 27.0 Anion Gap 6 BUN 20 H Creatinine 1.47 H Estim Creat Clear Calc 51.44 Est GFR (MDRD) Af Amer 62 Est GFR (MDRD) Non-Af 51 L BUN/Creatinine Ratio 13.6 Glucose 154 H Calcium 9.2 Urine Color Yellow Urine Clarity Clear Urine pH 5.0 Ur Specific [place] 1.015 Urine Protein 15 H Urine Glucose (UA) 1000 H Urine Ketones 50 H Urine Occult Blood 10 H Urine Nitrite Negative Urine Bilirubin Negative Urine Urobilinogen Normal Ur Leukocyte Esterase Negative Urine RBC 0 SEEN Urine WBC 0 SEEN Ur Squamous Epith Cells 0 SEEN Urine Bacteria 0 SEEN Urine Mucus 0 SEEN Radiography Diagnostic Testing: Clinical Impression(s) from Imaging Studies Abdomen/Pelvis CT 01/31/23 10:30 IMPRESSION: 1. Nonspecific mild left perinephric stranding without evidence of ureteral stones. Pyelonephritis is possible. 2. Cholelithiasis. 3. Otherwise no focal acute inflammatory process. 4. Status post gastric surgery. Electronically Signed: Luis Enrique Hameed MD at 11:26 EDT , Abdomen/Pelvis CTA 01/31/23 13:13 IMPRESSION: 1. Decreased enhancement of the left kidney with perinephric stranding consistent with acute pyelonephritis. 2. Gallstones. 3. Otherwise no focal acute inflammatory process. 4. No evidence of renal artery stenosis. 5. Status post gastric surgery. Electronically Signed: Luis Enrique Hameed MD at 14:01 EDT , Treatment and Re-Evaluation :: CBC was a white count 12.8 with 75% neutrophils. Hemoglobin is normal at 15.4. Chemistry studies reveal a BUN of 20 and a creatinine 1.47. This is increased from a creatinine of 1.14 in November. Urinalysis reveals 1000 glucose and 50 ketones. There are no red cells, white cells, or bacteria. CT scan of the flank reveals nonspecific mild left renal perinephric stranding without evidence of a ureteral stone. Pyelonephritis is possible. I went back to talk to patient and at bedside about test results. They bring up that a year ago their daughter had similar flank pain and was found to have a clot to her kidney. In light of this a CTA of the abdomen and pelvis was obtained along with delayed imaging through the kidneys. Radiology report reveals slight decreased enhancement of the left kidney when compared to right consistent with acute pyelonephritis. I do not have urology available to speak with today. I will refer him for follow-up. I spoke with Dr. Minor, on-call for the patient's PCP. She would like the patient started on Cipro and a urine culture sent. She asked that the patient call the office tomorrow to be seen either on Wednesday or Wednesday by Dr. Fu. Return instructions have been given. Patient will also be given Percocet for pain control. Discharge Plan Triage Chief Complaint: Flank Pain ED Provider: Jamia Polk Dx/Rx/DC Orders Clinical Impression: Acute flank pain Instructions: ED Flank Pain, Uncertain Cause Prescriptions: New ciprofloxacin HCl [Cipro] 500 mg tablet 500 mg PO BID Qty: 14 0RF oxycodone-acetaminophen [Percocet] 5-325 mg tablet 1 tab PO Q8H PRN (Reason: pain) 3 Days Qty: 10 0RF No Action multivitamin [Multiple Vitamins] Tablet 1 tablet PO DAILY ascorbate calcium (vitamin C) 500 mg tablet 500 mg PO DAILY bupropion HCl [Wellbutrin XL] 300 mg tablet extended release 24 hr 300 mg PO QAM omega-3 fatty acids [Fish Oil Concentrate] 1,000 mg capsule 1,000 mg PO DAILY calcium carbonate 600 mg calcium (1,500 mg) tablet 600 mg PO DAILY metformin 1,000 MG tablet 1,000 mg PO BIDCM cholecalciferol (vitamin D3) 1,000 UNIT tablet 1,000 unit PO DAILY diltiazem HCl 360 mg capsule,extended release 24hr 240 mg PO QHS pentoxifylline 400 mg tablet extended release 400 mg PO TID Rx Instructions: must administer with a meal/food Trulicity 0.75 mg/0.5 mL pen injector 1 ea SUBCUT GONZALEZ Rx Instructions: On Sundays Primary Care Provider: Fernando Fu Referrals: Kael oRberts MD [Med Staff - Active Staff] - As soon as possible Fernando Fu MD [Primary Care Provider] - As soon as possible Disposition Disposition: Home, Self Care
[2023-01-31] MEDS: 0.9% Normal Saline (500mL Bag) 500 ML 1000 ML IV (10:37)
[2023-01-31 10:40] LABS: Absolute Neutrophil Count 9.7 X10^3/uL (2.0-7.7); Basophil# 0.08 X10^3/uL; Basophil% 0.6 % (0-1); Eosinophil# 0.14 X10^3/uL; Eosinophils% 1.1 % (0-5); Hematocrit 46.6 % (40-54); Hemoglobin 15.4 g/dL (13.0-16.5); Lymphocyte % 14.9 % (19-41); Mean Corpuscular Hgb 30.3 pg (27.0-32.0); Mean Corpuscular Volume 91.6 fL (80-94); Mean Platelet Vol. 9.4 fl (6.2-12.0); Monocyte# 0.95 X10^3/uL; Monocyte% 7.4 % (0-10); NRBC Flagged by Analyzer 0 % (0-5); Neutrophil # 9.65 X10^3/uL (2.7-7.7); Neutrophil % 75.7 % (47-70); Platelet Count 296 K/mm3 (150-450); RBC Distribution Width CV 13.1 % (11.6-14.6); RBC Distribution Width SD 43.9 fl (35.1-43.9); Red Blood Count 5.09 M/mm3 (4.6-6.2); White Blood Count 12.8 K/mm3 (4.4-11.0)
[2023-01-31 10:52] LABS: Anion Gap 6 (5-15); BUN 20 mg/dL (7-18); BUN/Creat Ratio 13.6 RATIO (10-20); Calcium,Total 9.2 mg/dL (8.5-10.1); Chloride 107 mmol/L (98-107); Creatinine, Serum 1.47 mg/dL (0.70-1.30); EST Glomerular Filtration Rate 51 mL/min (>60); Est Glom Filt Rate - Afr Amer 62 mL/min (>60); Estimated Creatinine Clearance 51.44 ml/min; Glucose 154 mg/dL (74-106); Potassium 3.9 mmol/L (3.5-5.1); Sodium Level 140 mmol/L (136-145)
[2023-01-31] MEDS: Ondansetron 4 MG/2 ML Vial IV (11:04)
[2023-01-31] MEDS: Morphine 4 MG/ML Syringe IV (11:04)
[2023-01-31] MEDS: 0.9% Normal Saline (1000mL) 1,000 ML 150 ML IV (11:04)
[2023-01-31 12:40] LABS: Bacteria 0 SEEN /hpf (None Seen); Mucous, Urine 0 SEEN /hpf (<or=2+); Red Blood Cells-Urine 0 SEEN /hpf (0-5); Squamous Epithelial Cells - UA 0 SEEN /hpf (0-5); White Blood Cells 0 SEEN /hpf (0-5)
[2023-01-31 12:46] LABS: Color, Urine Yellow (Yellow); Glucose, Dipstick 1000 mg/dl (Normal); Ketone-Dipstick 50 mg/dl (Negative); Leukocyte Esterase-Dipstick Negative /ul (Negative); Nitrite-Dipstick Negative (Negative); Occult Blood-Urine 10 /ul (Negative); Protein-Dipstick 15 mg/dl (Negative); Specific Gravity, Urine 1.015 (1.002-1.030); Urine Bilirubin Dipstick Negative (Negative); Urine Clarity Clear (Clear); Urine Urobilinogen Normal (Normal)
--- NOTE | 2023-01-31 13:13 | CT_ITS ---
INDICATION: left flank pain, family history of clot to renal artery. Also scanned for pyelonephritis with delays due to streaking around kidneys EXAMINATION: CTA abdomen and pelvis - TECHNIQUE: Routine abdominal CT angiogram protocol was performed with IV contrast. MIP images provided. A radiation dose optimization technique was used for this scan. IV Contrast dosage and agent: 100 cc of Isovue-370. RADIATION DOSAGE (If Supplied By Facility): CTDIvol = ( 25.46 ) mGy, DLP = ( 3552.42 ) mGycm COMPARISON: Noncontrast CT scan of the abdomen pelvis of the same day. FINDINGS: Lung bases: Unremarkable Liver: No focal lesion is seen in the liver. Gallbladder: Distended gallbladder. Gallstones. Spleen: Normal. Adrenal gland: Unremarkable. Kidneys: Decreased enhancement of the left kidney compared to the right side with perinephric stranding concerning for pyelonephritis. Mild scarring in the lateral aspect of the left kidney. Simple renal cysts are again seen. No evidence of hydronephrosis. Pancreas:Normal. Bowel gas pattern: Status post gastric surgery. No evidence of bowel obstruction. No evidence of acute diverticulitis. Appendix: Normal. Free air: None. Free fluid: None. Pelvis: Pelvic organs: No mass lesion noted. Bone survey: No aggressive bony lesions. No acute fractures. Adenopathy: No significant pathologic adenopathy detected. Other: Small umbilical hernia containing fat. Vascular: Mild tortuosity of the abdominal aorta without evidence of aneurysm. Unremarkable celiac axis, superior mesenteric artery, bilateral renal arteries and MARY ANN without significant stenosis. Bilateral iliac arteries are patent without significant stenosis. Mild calcifications in the right common femoral artery. CT/CTA Abd/Pelvis W/WO Contrast IMPRESSION: 1. Decreased enhancement of the left kidney with perinephric stranding consistent with acute pyelonephritis. 2. Gallstones. 3. Otherwise no focal acute inflammatory process. 4. No evidence of renal artery stenosis. 5. Status post gastric surgery. Electronically Signed: Luis Enrique Hameed MD at 14:01 EDT ,
[2023-01-31] MEDS: Ketorolac 15 MG/ML Vial IV (13:33)
[2023-01-31] MEDS: 0.9% Normal Saline (500mL Bag) 500 ML 999 ML IV (13:55)
[2023-01-31 14:53] VITALS: BP 147/99; PULSE 90; RESP 16; O2SAT 96
[2023-01-31] MEDS: Ciprofloxacin 500 MG Tablet PO (15:07)
[2023-01-31] MEDS: oxyCODONE 5 MG Tablet PO (15:07)
== END 2023-01-31 15:09 | disposition home or self-care (01) ==
PROVIDERS: Emergency Provider Emergency Medicine; PCP Family Medicine; Visit Provider Emergency Medicine
DX: R10.9 Unspecified abdominal pain (principal); E11.40 Type 2 diabetes mellitus with diabetic neuropathy, unspecified; I10 Essential (primary) hypertension; J45.909 Unspecified asthma, uncomplicated
CPT/HCPCS: 74174; 74176; 80048; 81001; 85025; 87086; 96361; 96374; 96375; 99283; J7030; J7040; Q9967; A4216; J2405

== ENCOUNTER 2023-03-29 08:06 | Day surgery (SDC) | payer OTHER, SELFPAY ==
[2023-03-19 08:50] LABS: Hematocrit 43.6 % (40-54); Hemoglobin 14.6 g/dL (13.0-16.5); Mean Corp Hgb Conc 33.5 g/dL (32-36); Mean Corpuscular Hgb 29.9 pg (27.0-32.0); Mean Corpuscular Volume 89.2 fL (80-94); Mean Platelet Vol. 9.3 fl (6.2-12.0); Platelet Count 265 K/mm3 (150-450); RBC Distribution Width CV 12.5 % (11.6-14.6); RBC Distribution Width SD 40.9 fl (35.1-43.9); Red Blood Count 4.89 M/mm3 (4.6-6.2); White Blood Count 6.6 K/mm3 (4.4-11.0)
[2023-03-19 09:22] LABS: Hemoglobin A1c 6.5 % (3.8-5.6)
[2023-03-29] VITALS (8 sets, daily range): BP systolic 130–147; BP diastolic 80–84; PULSE 64–71; RESP 16–18; TEMP 36.2–36.8; O2SAT 95–97; BMI 31.8
[2023-03-29] MEDS: Lactated Ringers 1,000 ML 15 ML IV (08:44)
[2023-03-29 09:15] LABS: Bedside Glucose 157 mg/dL (74-106)
[2023-03-29] MEDS: Ipratropium/Albuterol Sulfate 3 ML AMPUL.NEB INHALATION (09:34)
[2023-03-29] MEDS: Cefazolin 2 GM in 0.9% Normal Saline (100mL Bag) 100 ML IV (10:57)
[2023-03-29] MEDS: Epinephrine (1 mg/ml) 1 MG/ML VIAL (11:45)
[2023-03-29] MEDS: Lidocaine 1%/Epi 1:200 (30ml) 30 ML AMPUL (13:17)
--- NOTE | 2023-03-29 13:28 | PCM.OPRPT ---
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
[2023-03-29 14:31] LABS: Bedside Glucose 193 mg/dL (74-106)
== END 2023-03-29 15:04 | disposition home or self-care (01) ==
LOC: SDC 08:06 → AC 08:07
PROVIDERS: Anesthesiology; PCP Family Medicine; Referring Provider Orthopaedic Surgery; Visit Provider Orthopaedic Surgery
PROC: (CPT 29827; principal; 2023-03-29 10:00)
DX: S46.011A Strain of muscle(s) and tendon(s) of the rotator cuff of right shoulder, initial encounter (principal); E11.51 Type 2 diabetes mellitus with diabetic peripheral angiopathy without gangrene; M19.011 Primary osteoarthritis, right shoulder; M75.21 Bicipital tendinitis, right shoulder; S46.211A Strain of muscle, fascia and tendon of other parts of biceps, right arm, initial encounter; K21.9 Gastro-esophageal reflux disease without esophagitis; I10 Essential (primary) hypertension; F32.A Depression, unspecified; G47.30 Sleep apnea, unspecified; Z79.84 Long term (current) use of oral hypoglycemic drugs; Z79.899 Other long term (current) drug therapy; Z87.891 Personal history of nicotine dependence; X58.XXXA Exposure to other specified factors, initial encounter
CPT/HCPCS: 29827; 29824; 64415; 01630; 36415; 82962; 83036; 85027; 93005; 94640; J7120; J2405

== ENCOUNTER 2023-05-14 08:23 | Day surgery (SDC) | payer OTHER, SELFPAY ==
[2023-05-03 12:09] LABS: Basophil# 0.07 X10^3/uL; Basophil% 0.7 % (0-1); Eosinophil# 0.32 X10^3/uL; Eosinophils% 3.3 % (0-5); Hematocrit 43.9 % (40-54); Hemoglobin 14.7 g/dL (13.0-16.5); Lymphocyte % 27.6 % (19-41); Mean Corp Hgb Conc 33.5 g/dL (32-36); Mean Corpuscular Hgb 30.3 pg (27.0-32.0); Mean Corpuscular Volume 90.5 fL (80-94); Mean Platelet Vol. 9.4 fl (6.2-12.0); Monocyte# 0.66 X10^3/uL; Monocyte% 6.7 % (0-10); NRBC Flagged by Analyzer 0 % (0-5); Neutrophil # 6.01 X10^3/uL (2.7-7.7); Neutrophil % 61.5 % (47-70); Platelet Count 321 K/mm3 (150-450); RBC Distribution Width CV 13.4 % (11.6-14.6); RBC Distribution Width SD 44.5 fl (35.1-43.9); Red Blood Count 4.85 M/mm3 (4.6-6.2); White Blood Count 9.8 K/mm3 (4.4-11.0)
[2023-05-03 12:55] LABS: Vitamin D,25 Hydroxy 29.5 ng/mL
[2023-05-03 13:10] LABS: Anion Gap 7 (5-15); BUN 16 mg/dL (7-18); BUN/Creat Ratio 12.7 RATIO (10-20); Calcium,Total 9.9 mg/dL (8.5-10.1); Chloride 106 mmol/L (98-107); Creatinine, Serum 1.26 mg/dL (0.70-1.30); EST Glomerular Filtration Rate 61 mL/min (>60); Est Glom Filt Rate - Afr Amer 74 mL/min (>60); Glucose 118 mg/dL (74-106); Potassium 4.5 mmol/L (3.5-5.1); Sodium Level 138 mmol/L (136-145)
[2023-05-03 13:38] LABS: Hemoglobin A1c 7.1 % (3.8-5.6)
--- NOTE | 2023-05-14 09:00 | RAD_ITS ---
STUDY: X-RAY RIGHT FOOT, SECOND THROUGH FOURTH TOES. REASON FOR EXAM: Male, 62 years old. Flexor tenotomy of right foot 2-4th toes -- -- 106.1 sec, 1.63 mGy TECHNIQUE: 4 view(s) of the toe were obtained. COMPARISON: None. FINDINGS: Intraoperative fluoroscopic services provided for flexor tenotomy of the right foot RAD/Toe(s) Min 2 Views IMPRESSION: Intraoperative fluoroscopic services provided. Electronically Signed: Tahir Taveras MD at 12:41 EST ,
[2023-05-14] MEDS: Lactated Ringers 1,000 ML 15 ML IV (09:12)
[2023-05-14 09:14] VITALS: BP 140/85; PULSE 66; RESP 16; TEMP 36.6; O2SAT 99; BMI 32.9
[2023-05-14 09:42] LABS: Bedside Glucose 144 mg/dL (74-106)
[2023-05-14] MEDS: Cefazolin 2 GM in 0.9% Normal Saline (100mL Bag) 100 ML IV (11:32)
[2023-05-14] MEDS: Bupivacaine Mpf 0.5% 30 ML VIAL (11:45)
[2023-05-14 13:10] VITALS: BP 130/76; BP 140/85; PULSE 81; RESP 12; TEMP 36.6; O2SAT 95
[2023-05-14 13:15] VITALS: BP 132/74; BP 140/85; PULSE 83; RESP 14; O2SAT 94
[2023-05-14 13:20] VITALS: BP 127/79; BP 140/85; PULSE 89; RESP 16; O2SAT 94
--- NOTE | 2023-05-14 13:21 | PCM.OPRPT ---
Problems Associated Problem List Diagnoses (1) Other hammer toe(s) (acquired), right foot: (2) Acute painful diabetic polyneuropathy: (3) Contracture of joint of right foot: Report of Operation Date of Procedure: 05/16/23 Pre-Operative Diagnosis: 1. Hammertoe, digits 2, 3 and 4, right foot 2. Contracture of foot, left foot 3. Diabetes mellitus type 2, controlled Post-Operative Diagnosis: 1. Hammertoe, digits 2, 3 and 4, right foot 2. Contracture of foot, left foot 3. Diabetes mellitus type 2, controlled Surgery/Procedure Performed:: 1. PIPJ arthroplasty, digits 2, 3 and 4, right foot 2. Lexer tenotomy, digits 2, 3 and 4, right foot 3. Derotational arthroplasty, fifth digit, right foot Description of Surgical Findings:: 1. Release of all flexor tendons digits, 2, 3, 4 and 5. 2. Rectus positioning of the lesser digits 2, 3, 4 and the derotation of the fifth digit. Surgeon: Fortunato Aviles continuous pillowcase cutter: Jaime Bower Type of Anesthesia: General and Local Anesthesiologist: Shiva Ramos Special Medications: Per anesthesia Specimen's removed: None Drains: Per anesthesia Estimated Blood Loss (mL): 30 mL Fluids Replaced: Per anesthesia Description of Procedure: Indications For Operation: Mr. Tanner is a 62-year-old diabetic male who was admitted to [facility] for elective right foot surgery consisting of hammertoe repair to the right foot. 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 He admits that he has pain with walking secondary to the tips of the toes coming in contact with the ground. He is concerned for ulceration secondary to being a diabetic thus electing for hammertoe repair and derotational arthroplasty to the right foot. Due to contracture of toes to digits 2, 3 4 and 5, it has been deemed necessary at this time to take the patient to the operating room to perform the above procedure to help decrease the patient's chance of ulceration to the lesser digits as well as relieve his constant pain. The nature of the problem, anticipated procedures, postop recovery/convalences and risk/complications include but not limited to infection, wound healing complications, digital amputation, hypertrophic scarring, numbness, tingling, chronic pain, CRPS, over and under correction, recurrence of deformity, DVT and or PE and the need for further surgery have been discussed in great detail with the patient. All questions have been answered to the patient's satisfaction. There are no guarantees given as to the outcome of the procedure. Description of Procedure: Under mild sedation, the patient was brought into the operating room and placed on the operating table in supine position. Once the patient was under general anesthesia with laryngeal mask airway, the right lower extremity was blocked using approximately 20 cc 0.5% Marcaine plain. Next, a well-padded thigh tourniquet was applied to the right lower extremity. Next, the right lower extremity was prepped and draped in normal aseptic manner. Next, a timeout was then undertaken verifying the correct patient, extremity, visibility of preoperative markings, availability of the equipment. Next, attention was directed to the right lower extremity. Using a 4 inch Esmarch, right lower extremity was exsanguinated and elevated to 60 degrees for 1 minute. Procedure #1, open flexor tenotomy, digits 2, 3, 4 and 5, right foot Next, attention was directed to the right lower extremity. Procedure #1 was performed on all digits 2, 3, 4 and 5 of the right foot the same. Next, attention was directed to the plantar aspect of all the lesser digits 2 through 5 to the right foot. Using a #69 blade, open flexor tenotomy was performed at the level of the plantar PIPJ of all digits 2 through 5 of the right foot. The long flexor tendon was identified on all digits and released. Forced dorsiflexion was performed on all digits and noticeable release of the long flexor tendons was noted. After release, the digits 2 through 5 showed evidence of being less contracted and in a more rectus fashion. Procedure #2, PIPJ arthroplasty, digits 2, 3 and 4, right foot Next, attention was directed to the lesser digits 2, 3 and 4 of the right foot. Procedure #2 was performed for all digits 2, 3 and 4. Using a Laurel blade a medial stab incision was performed on the medial aspect of the PIPJ of digits 2, 3 and 4. Using the Arthrex minimally invasive bur, the bur was inserted across all the PIPJ joints of digits 2, 3 and 4, the articular cartilage of the head of the proximal phalanx and base of the intermediate phalanx was removed without incident. All digits showed evidence of increased range of motion when performed on the operating table. Resection of the PIPJ was noted clinically as well as with large C-arm fluoroscopy. All incisions were flushed with copious hugo normal saline. Excess bone paste was ejected from the medial and dorsal incisions. Again, all incisions were flushed with copious hugo normal saline. Procedure #3, derotational arthroplasty fifth digit, right foot Next, attention was directed to the right fifth digit. A sterile skin marker was used to map out the incision in a oblique fashion from distal medial to proximal lateral over the fifth digit PIPJ. Using a #15 blade the oblique incision was carried out without incident. Using pickups, the oblique skin island was removed and passed the back table to be discarded. The long extensor tendon was identified and released followed by the lateral collateral ligaments of the PIPJ of the fifth digit. Using the MIS bur by Arthrex the head of the proximal phalanx of the fifth digit was removed without incident. The area was flushed with copious hugo normal saline. All incisions to digits 2 through 5 were flushed with copious hugo of normal saline. The right fifth digit incision was derotated and closed with 3-0 nylon in simple interrupted suture technique. All plantar incisions were closed with 3-0 nylon in simple interrupted suture technique. All medial stab incisions from digits 2 through 4 were closed with 3-0 nylon in simple interrupted suture technique. The dorsal skin of digits 2, 3 and 4 were reapproximated and closed with 3-0 nylon in simple interrupted suture technique. All incisions were dressed with Betadine soaked Adaptic, dry sterile dressing and a single-layer Nicolas compression bandage was donned followed by cam boot. The patient tolerated the procedure and anesthesia well and apparent satisfactory condition and was transported to the PACU for further monitoring prior to discharge home. Vital signs stable and vascular status intact to all digits bilateral. Post Operative Plan: Weightbearing: Patient to be partial weightbearing to heel to the right foot. Full weightbearing left lower extremity. Antibiotics: 2 g Ancef through the IV DVT Prophylaxis: Ambulation Rodriguez: None Dressing: Betadine soaked Adaptic, dry sterile dressing, single-layer Nicolas compression bandage, cam boot X-Rays: Post-operative films taken on the operating room. Pain Medication: Percocet 5/325, Flexeril 10 mg 3 times daily Follow-up: Patient will follow-up in 1 week in private office with Dr. Aviles. Grafts/Implants Used: None Complications None Admit VTE Documentation VTE Present on Admission: No VTE Mechan Device Prophylaxis: SCD's VTE Pharm Prophylaxis ordered?: Yes
[2023-05-14 13:27] VITALS: BP 133/76; BP 140/85; PULSE 86; RESP 16; TEMP 36.1; O2SAT 97
[2023-05-14 13:49] LABS: Bedside Glucose 122 mg/dL (74-106)
== END 2023-05-14 14:14 | disposition home or self-care (01) ==
LOC: SDC 08:24 → AC 08:25
PROVIDERS: PCP Family Medicine; Referring Provider Podiatrist Foot & Ankle Surgery; Visit Provider Podiatrist Foot & Ankle Surgery
PROC: (CPT 28292; principal; 2023-05-14 09:45)
DX: M20.41 Other hammer toe(s) (acquired), right foot (principal); E11.51 Type 2 diabetes mellitus with diabetic peripheral angiopathy without gangrene; Z89.411 Acquired absence of right great toe; E11.42 Type 2 diabetes mellitus with diabetic polyneuropathy; M24.575 Contracture, left foot; M24.574 Contracture, right foot; I10 Essential (primary) hypertension; Z79.85 Long-term (current) use of injectable non-insulin antidiabetic drugs; Z79.84 Long term (current) use of oral hypoglycemic drugs; Z79.899 Other long term (current) drug therapy; Z95.1 Presence of aortocoronary bypass graft
CPT/HCPCS: 28285 ×3; 28286; 01480; 36415; 73660; 76000; 80048; 82306; 82962; 83036; 85025; J7120; J2405

== ENCOUNTER 2023-07-16 08:30 | Outpatient (RCR) | payer OTHER, SELFPAY ==
--- NOTE | 2023-04-06 11:05 | HP.PTEVAL ---
Patient's Visit Information Visit Information Visit Information: CARA PEOPLES is a 62 year old M referred to Physical Therapy by Dr. Carlitos Strauss DO with a diagnosis of R rot cuff repair 03/29/23. Date of Evaluation: 04/06/23 Physical Therapist: Raffy Jimenez, PT, ATC Visit Plan Frequency: 2-3x /Week Duration: 4-6 Weeks Plan: PROM to R shoulder x 4-6 weeks, and then transition to AROM. Begin strengthening at 12 weeks Subjective Subjective: DOS: 03/29/23. Pt reports he had R shoulder rotator cuff repair at that time. Pt notes his R shoulder pain was chronic in nature. He reports he was in pain prior to surgery and would be limited with ROM at times. Pt reports he is in nearly no pain at this time. Pt reports he has been wearing his sling at all times and is taking minimal pain meds. Pt reports he is glad to have had the surgery at this time. Pt is R hand dominant. Pt denies tingling or numbness in R UE at this time. Pt denies sleep difficulty at this time. Pt is sleeping on a chair at this time. 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 2/10 pain at rest, 3/10 at worst (when performing his HEP of pendulums and elbow ROM) Pain R shoulder: Pain Intensity (Out of 10): 2 Pain Intensity Range: 3 Objective Objective: Neuro: B UE sensation is WNL to light touch. Observation: Incisions are still covered. Appear to be healing well with no signs of infection ROM: L shoulder AROM: flex= 115, abd= 115, ER= 55, IR= WNL; R shoulder PROM flex= 140, abd= 140 MMT: L shoulder flex= 15, abd= 25, ER= 29, IR= 31; R shoulder not tested at this time. Balance/Special Test Scores Quick DASH Score: 72.7250 Goals Goal 1:: Decrease R shoulder pain x 50% to aid with IADL's Goal Time Frame: 4-6 Weeks Goal 2:: Increase R shoulder flex and abd AROM x 30 degrees to aid with return to work requirements Goal Time Frame: 4-6 Weeks Goal 3:: Increase R shoulder strength to 90% equal of L UE to aid with work requirements Goal Time Frame: 4-6 Weeks Goal 4:: I with HEP Goal Time Frame: 4-6 Weeks Rehabilitation Potential Physical Therapy Diagnosis: Pt has R shoulder pain, weakness, and limited ROM secondary to R rot cuff repair. Rehabilitation Potential: Good Anticipated Interventions Patient/Client Instruction: Educate patient on: Condition and Plan of Care For the Purpose of:: To improve self management Therapeutic Exercise to Include: Strength training, Endurance training, Flexibilty training, Passive ROM, Active ROM and Scapular Strength/Stabilization For the Purpose of:: To decrease pain, To increase ROM and To improve muscle performance and motor function Cryotherapy (ice pack, ice massage): Yes For the Purpose of:: To decrease pain Text: Thank you for the opportunity to evaluate your patient. For Medicare and Medicare HMO plans, please review the plan of care and approve it. It will need to be FAXED BACK to us at [phone] for Medicare purposes. For Medicare only, by signing this I certify the plan of care. Please let me know if there are questions or concerns regarding this plan of care. Physician Signature: Date:
--- NOTE | 2023-06-30 09:17 | HP.PTREVAL_ITS ---
Re-Evaluation Intro: Dr. Carlitos Strauss, DO, It has been my pleasure to treat CARA PEOPLES over the last 27 visits for R rot cuff repair 03/29/23. Please see the progress note below for an update on the physical therapy plan of care! Subjective Subjective: I dont have any pain at this time Objective Objective/Function: R shoulder pain ranges from 0-1/10 R shoulder ROM: flex= 125, abd= 115, ER= 45, IR= WNL when compared bilaterally R shoulder MMT: flex= 11, abd= 16, ER= 27, IR= 30 #F Pt is showing excellent gains at this time Plan Plan Plan: Phase 3 progressive resisted ex's Balance/Gait/Functional tests Balance/Special Test Scores Quick DASH Score: 11.3625 Goals Goals Goal 1:: Decrease R shoulder pain x 50% to aid with IADL's Goal Time Frame: 4-6 Weeks Goal Progress: Goal Met Goal 2:: Increase R shoulder flex and abd AROM x 30 degrees to aid with return to work requirements Goal Time Frame: 4-6 Weeks Goal Progress: Progressing Goal 3:: Increase R shoulder strength to 90% equal of L UE to aid with work requirements Goal Time Frame: 4-6 Weeks Goal Progress: Progressing Goal 4:: I with HEP Goal Time Frame: 4-6 Weeks Goal Progress: Goal Met Anticipated Interventions Anticipated Interventions Patient/Client Instruction: Educate patient on: Condition and Plan of Care For the Purpose of:: To improve self management Therapeutic Exercise to Include: Strength training, Endurance training, Fl exibilty training, Passive ROM, Active ROM and Scapular Strength/Stabilization For the Purpose of:: To decrease pain, To increase ROM and To improve muscle performance and motor function Cryotherapy (ice pack, ice massage): Yes For the Purpose of:: To decrease pain Re-Evaluation Ending Re-evaluation ending: Please do not hesitate to contact me at [phone] by phone or if you have questions or concerns regarding this new plan of care! Sincerely, Raffy Jimenez, PT, ATC
--- NOTE | 2023-07-16 08:56 | HP.PTDCSUM ---
Discharge Summary D/C summary: It has been my pleasure to treat CARA PEOPLES referred by Dr. Carlitos Strauss DO, with the diagnosis of R rot cuff repair 03/29/23 for a total of 32 visit(s). Discharge Date: Please see the following information for a summary of their discharge status. Subjective Subjective: I feel great today Pain R shoulder: Pain Intensity (Out of 10): 0 Overall Improvement % Improvement: 98 Objective Objective/Function: R shoulder pain 0/10 R shoulder ROM: flex= 160, abd= 130, ER= 55 R shoulder MMT: flex= 11, abd= 22, ER= 23, IR= 30 #F I with HEP Goals Goal 1:: Decrease R shoulder pain x 50% to aid with IADL's Goal Progress: Goal Met Goal 2:: Increase R shoulder flex and abd AROM x 30 degrees to aid with return to work requirements Goal Progress: Goal Met Goal 3:: Increase R shoulder strength to 90% equal of L UE to aid with work requirements Goal Progress: Goal Met Goal 4:: I with HEP Goal Progress: Goal Met Plan Plan: Discharge to HEP D/C Information d/c sentence: If there are questions or concerns regarding this patient's physical therapy, please feel free to call me at [phone]. Thank you for the referral of this patient. Sincerely, Raffy Jimenez, PT, ATC Balance/Gait/Functional tests Balance/Special Test Scores Quick DASH Score: 6.8175 Improvement % Improvement: 98
== END 2023-07-16 19:00 | disposition home or self-care (01) ==
LOC: PT 08:30
PROVIDERS: PCP Family Medicine; Visit Provider Orthopaedic Surgery
DX: S46.011D Strain of muscle(s) and tendon(s) of the rotator cuff of right shoulder, subsequent encounter (principal); M75.41 Impingement syndrome of right shoulder; M75.21 Bicipital tendinitis, right shoulder
CPT/HCPCS: 97110; 97140; 97161

== ENCOUNTER → 2023-11-12 | Outpatient (CLI) | payer OTHER, SELFPAY ==
[2023-11-12 12:33] LABS: ALB/GLOB Ratio 0.8 RATIO (0.9-2.4); AST(SGOT) 16 U/L (15-37); Alanine Aminotransfer ALT/SGPT 23 U/L (16-61); Albumin, Serum 3.5 g/dL (3.2-5.0); Alkaline Phosphatase 66 U/L (45-117); Anion Gap 7 (5-15); BUN 15 mg/dL (7-18); BUN/Creat Ratio 13.3 RATIO (10-20); Calcium,Total 9.2 mg/dL (8.5-10.1); Chloride 108 mmol/L (98-107); Cholesterol 202 mg/dL (200); Creatinine, Serum 1.13 mg/dL (0.70-1.30); EST Glomerular Filtration Rate 69 mL/min (>60); Est Glom Filt Rate - Afr Amer 84 mL/min (>60); Globulin 4.2 g/dL (2.2-4.2); Glucose 100 mg/dL (74-106); High Density Lipoprotein 49 mg/dL; PSA,Total - Annual Screen 0.21 ng/mL (0.00-4.00); Potassium 4.2 mmol/L (3.5-5.1); Protein, Total 7.7 g/dL (6.4-8.2); Sodium Level 139 mmol/L (136-145); Triglycerides 180 mg/dL; Very Low Density Lipoprotein 36 mg/dL (5-40)
[2023-11-12 13:09] LABS: Hemoglobin A1c 6.5 % (3.8-5.6)
== END | disposition home or self-care (01) ==
LOC: MTLAB 09:32
PROVIDERS: PCP Family Medicine; Referring Provider Family Medicine; Visit Provider Family Medicine
DX: Z00.00 Encounter for general adult medical examination without abnormal findings (principal); E11.9 Type 2 diabetes mellitus without complications
CPT/HCPCS: 36415; 80053; 80061; 83036; 84153; G0103

== ENCOUNTER 2024-01-28 19:20 | Emergency (ER) | payer OTHER, SELFPAY ==
[2024-01-28 19:21] VITALS: BP 150/98; PULSE 125; RESP 16; TEMP 37.3; O2SAT 98; BMI 31.7
--- NOTE | 2024-01-28 19:54 | ED.VIS.GI ---
HPI HPI - GI History of Present Illness Chief Complaint: Abd Pain Informant: patient Abdominal Pain/Flank Pain Onset: Days (5) Context: Gradual Onset Timing: Continuous Quality: Aching Location: RLQ Worsened by: Movement (Standing, walking) Relieved by: - (Laying flat) Nausea/Vomiting/Emesis GI Symptom: Positive for Nausea; Negative for Vomiting Diarrhea/Melena/Hematochezia GI Symptom: Positive for Diarrhea; Negative for Melena or Hematochezia Associated Symptoms Associated Symptoms: Negative for Dysuria, Frequency or Hematuria Narrative Narrative: Patient presents with right lower abdominal pain that has been getting worse over the past 5 days. Patient states the pain started in his right lower back and has now spread to the right lower abdomen. Patient states it has been constant over the last 5 days. Patient states it is worse with standing and walking. Patient states it is better with laying down. Patient admits to some nausea but denies any vomiting. Patient admits to some diarrhea but denies any melena or hematochezia. Patient denies any dysuria, frequency, or hematuria. Patient denies any fevers or chills. PFSH PFS Medical History Bladder disease Depression Dietary restriction Asthma Wears glasses Nondisplaced fracture of proximal phalanx of great toe Chronic ulcer of great toe of right foot with fat layer exposed Diabetes Neuropathy PAOD (peripheral arterial occlusive disease) RLS (restless legs syndrome) HTN (hypertension) DM type 2 (diabetes mellitus, type 2) Undescended testicle Ruptured meckels diverticulum with sepsis Home Medications ?Medication ?Instructions ?Recorded ?Last Taken ?Type cholecalciferol (vitamin D3) 25 1,000 unit PO DAILY supplement 02/26/14 Unknown History mcg (1,000 unit) tablet metformin 1,000 mg tablet 1,000 mg PO BIDCM diabetes 02/26/14 05/13/23 History ascorbate calcium (vitamin C) 500 500 mg PO DAILY vitamin 07/22/20 Unknown History mg tablet bupropion HCl 300 mg 24 hr tablet, 300 mg PO QAM mood 07/22/20 05/13/23 History extended release (Wellbutrin XL) multivitamin (Multiple Vitamins 1 tablet PO DAILY vitamin 07/22/20 09/11/21 History tablet) calcium carbonate 600 mg PO DAILY supplement 07/21/21 Unknown History diltiazem HCl 360 mg 240 mg PO QHS heart 07/21/21 05/13/23 History capsule,extended release 24 hr pentoxifylline 400 mg 400 mg PO TID circulation 10/12/21 05/13/23 History tablet,extended release dulaglutide 3 mg/0.5 mL 3 mg subcut GONZALEZ 03/17/23 Unknown History subcutaneous pen injector (Trulicity) gabapentin 300 mg capsule 300 mg PO QHS 03/17/23 05/13/23 History empagliflozin 10 mg tablet 10 mg PO DAILY 05/06/23 05/13/23 History (Jardiance) cyclobenzaprine 10 mg tablet 10 mg PO TID 7 days #21 tabs 05/14/23 Unknown Rx docusate sodium 100 mg capsule 100 mg PO DAILY 10 days #10 caps 05/14/23 Unknown Rx (Colace) oxycodone-acetaminophen 5 mg-325 1 tab PO Q6H pain 7 days #28 tabs 05/14/23 Unknown Rx mg tablet (Endocet) Allergy/AdvReac Type Severity Reaction Status Date / Time [id number] Reductase Allergy Other Verified 01/28/24 19:21 Inhibitor (Snkeqkx-Ddb-Okf Reductase Inhibitor) Family History Brother Cancer pancreatic cancer Father Diabetes Heart disease Hypertension Mother Hypertension Surgical History Hx of shoulder surgery History of angioplasty of peripheral vessel History of uvulectomy History of nasal polypectomy History of testicular surgery History of tonsillectomy History of gastric bypass Social History household members: spouse housing: house Smoking Status: Never smoker alcohol intake: current alcohol intake frequency: holidays/special occasions only what type of physical activity do you participate in: none do you feel safe at home: Yes ROS ROS ED Constitutional Constitutional ED: Denies chills or fever(s) Eyes Eyes: Denies blurry vision or change in vision ENT ENT ED: Denies rhinorrhea or sore throat Cardiovascular Cardiovascular: Denies chest pain or palpitations Respiratory/Chest Respiratory/Chest: Denies cough or dyspnea Gastrointestinal Gastrointestinal: Reports abdominal pain, diarrhea and nausea; Denies constipation, melena or vomiting Genitourinary Genitourinary ED: Denies dysuria or hematuria Musculoskeletal Musculoskeletal: Reports back pain; Denies neck pain Integumentary Denies abscess or rash Neurologic Neurologic: Denies headache(s) or weakness Allergic/Immunologic Allergic/Immunologic ED: Denies mouth swelling or urticaria EXAM Physical Exam Const Vital Signs: 01/28/24 19:21 01/28/24 21:30 Temperature 99.1 F Temperature Source Oral Pulse Rate 125 H 110 H Respiratory Rate 16 18 Blood Pressure 150/98 H 158/92 H Blood Pressure Mean 115 114 Pulse Ox 98 97 Oxygen Delivery Method Room Air Room Air Positive well nourished and well developed General Appearance ED: well developed and NAD HEENT Reports moist mucous membranes Neck supple and no JVD Resp normal respiratory effort and clear to auscultation bilaterally Cardio regular rate and regular rhythm GI non-distended Palpation: soft and tender RLQ; Negative for guarding or rebound tenderness present Neuro CN's II-XII intact bilaterally, moves all extremities and no sensory deficits noted Sensorium / Orientation: alert Motor Exam: strength 5/5 throughout Psych mental status grossly normal MDM MDM MDM Narrative Medical decision making narrative: Differential diagnosis includes appendicitis, gastroenteritis, colitis, diverticulitis, ureteral calculus, pyelonephritis, and urinary tract infection. CT scan of the abdomen pelvis will be obtained to assess for appendicitis, colitis, diverticulitis, bowel obstruction, and perforation. CBC will be obtained to assess for leukocytosis and anemia. Comprehensive metabolic profile will be obtained to assess for hepatic function, renal function, and electrolyte abnormality. Urinalysis will be obtained to assess for urinary tract infection and hematuria. Lab Data Attestation: I reviewed the patient's lab results. Lab results narrative: CBC was reviewed. White blood cell count was within normal limits. However, there were 64 neutrophils, 8 bands, 11 lymphocytes, 16 monocytes, and 1 blast cell. Comprehensive metabolic profile was reviewed and was essentially within normal limits. Labs: Laboratory Results - last 24 hr 01/28/24 01/28/24 19:35 21:20 WBC 8.1 RBC 4.77 Hgb 14.5 Hct 42.0 MCV 88.1 MCH 30.4 MCHC 34.5 RDW Std Deviation 40.4 RDW Coeff of Fabian 12.5 Plt Count 333 MPV 9.5 Immature Gran % (Auto) [facility] [facility] Neut % (Auto) [facility] [facility] Lymph % (Auto) [facility] [facility] [place] % (Auto) [facility] [facility] Eos % (Auto) [facility] [facility] [facility] Baso % (Auto) [employer] [facility] Absolute Neuts (auto) 5.4 Absolute Lymphs (auto) 1.56 Total Counted 100 Neutrophils % (Manual) 64 Band Neutrophils % 8 H Lymphocytes % (Manual) 11 L Monocytes % (Manual) 16 H Blast Cells % 1 H* Nucleated RBC % [address] Review May foll Sodium 137 Potassium 3.4 L Chloride 106 Carbon Dioxide 23.0 Anion Gap 8 BUN 14 Creatinine 1.24 Estim Creat Clear Calc 69.32 Est GFR (MDRD) Af Amer 75 Est GFR (MDRD) Non-Af 62 BUN/Creatinine Ratio 11.3 Glucose 163 H Calcium 9.5 Total Bilirubin 0.70 AST 10 L ALT 17 Alkaline Phosphatase 68 Total Protein 7.9 Albumin 3.5 Globulin 4.4 H Albumin/Globulin Ratio 0.8 L Urine Color Yellow Urine Clarity Sl. Cloudy Urine pH 5.0 Ur Specific Pierron 1.020 Urine Protein 30 H Urine Glucose (UA) 1000 H Urine Ketones 50 H Urine Occult Blood 10 H Urine Nitrite Negative Urine Bilirubin Negative Urine Urobilinogen Normal Ur Leukocyte Esterase Negative Urine RBC 0 SEEN Urine WBC 0 SEEN Ur Squamous Epith Cells 0 SEEN Urine Bacteria 0 SEEN Urine Mucus 0 SEEN Radiography Diagnostic Testing: Clinical Impression(s) from Imaging Studies Abdomen/Pelvis CT 01/28/24 20:14 IMPRESSION: Somewhat patulous appearing multiple dilated colonic bowel loops containing air-fluid levels without definite transition point, likely reflecting ileus formation. Hepatomegaly again noted. Electronically Signed: Navi Mcmanus MD at 22:54 EDT , CT scan of the abdomen pelvis was obtained. There are multiple dilated colonic bowel loops containing air-fluid levels but no definite transition point. This is likely an ileus formation. There is no evidence of appendicitis. There is no evidence of obstruction. There is no free air or free fluid. This was interpreted by the radiologist and was also independently reviewed by myself. Treatment and Re-Evaluation :: Patient was given IV fluids, morphine, and Zofran. Patient was feeling better on reevaluation. Patient was advised of his findings. Patient was instructed to eat a bland diet. Patient was instructed to use [id number] simethicone. Patient was instructed to follow-up with his primary care physician in 3 to 5 days. Patient was instructed return if worse in any way. Patient understood and was agreeable with this plan. All questions were answered. Discharge Plan Triage Chief Complaint: Abd Pain ED Provider: Ron Vargas Dx/Rx/DC Orders Clinical Impression: Abdominal pain, Ileus Instructions: Ileus Prescriptions: No Action multivitamin [Multiple Vitamins] Tablet 1 tablet PO DAILY ascorbate calcium (vitamin C) 500 mg tablet 500 mg PO DAILY bupropion HCl [Wellbutrin XL] 300 mg tablet extended release 24 hr 300 mg PO QAM calcium carbonate 600 mg calcium (1,500 mg) tablet 600 mg PO DAILY metformin 1,000 MG tablet 1,000 mg PO BIDCM cholecalciferol (vitamin D3) 1,000 UNIT tablet 1,000 unit PO DAILY diltiazem HCl 360 mg capsule,extended release 24hr 240 mg PO QHS pentoxifylline 400 mg tablet extended release 400 mg PO TID Rx Instructions: must administer with a meal/food gabapentin 300 mg capsule 300 mg PO QHS Trulicity 3 mg/0.5 mL pen injector 3 mg SUBCUT GONZALEZ Jardiance 10 mg tablet 10 mg PO DAILY oxycodone-acetaminophen [Endocet] 5-325 mg tablet 1 tab PO Q6H 7 Days Qty: 28 0RF cyclobenzaprine 10 mg tablet 10 mg PO TID 7 Days Qty: 21 0RF docusate sodium [Colace] 100 mg capsule 100 mg PO DAILY 10 Days Qty: 10 0RF Primary Care Provider: Fernando Fu Referrals: Fernando Fu MD [Primary Care Provider] - 3-5 Days Activity Restrictions/Additional Instructions: You may use simethicone [id number] as needed for gas. Print Language: Setswana Disposition Disposition: Home, Self Care
--- NOTE | 2024-01-28 20:14 | CT_ITS ---
INDICATION: Abdominal pain COMPARISON: Abdominal CT 01/31/2023. IV Contrast dosage and agent: 100 cc Isovue-370 IV. A radiation dose optimization technique was used for this scan. RADIATION DOSAGE (If Supplied By Facility): CTDIvol/DLP = ( 15.68 ) / ( 811.08 ) mGy/mGycm FINDINGS: Contrast enhanced serial CT axial images of the abdomen and pelvis with coronal and sagittal reformatted series. PANCREAS: No peripancreatic fat stranding. BOWEL/MESENTERY: Multiple somewhat patulous appearing dilated colonic bowel loops containing air-fluid levels without definite transition point, likely reflecting ileus formation. No significant free fluid. No free air. GALLBLADDER: Dependent cholelithiasis without pericholecystic fat stranding. APPENDIX: Normal caliber gas containing appendix. LIVER/STOMACH: Hepatomegaly measuring up to 21 cm in the craniocaudal dimension.. URINARY COLLECTING SYSTEM/ KIDNEYS: No obstructing ureteral calculus. Simple fluid attenuating right renal lesions, likely renal cysts. LUNG BASES: Unremarkable. BONES: Unremarkable for age. CT/Abdomen/Pelvis W IV Cont ONLY IMPRESSION: Somewhat patulous appearing multiple dilated colonic bowel loops containing air-fluid levels without definite transition point, likely reflecting ileus formation. Hepatomegaly again noted. Electronically Signed: Navi Mcmanus MD at 22:54 EDT ,
[2024-01-28] MEDS: Ondansetron 4 MG/2 ML Vial IV (20:29)
[2024-01-28] MEDS: Morphine 4 MG/ML Syringe IV (20:29)
[2024-01-28] MEDS: 0.9% Normal Saline (1000mL) 1,000 ML 999 ML IV (20:29)
[2024-01-28 20:36] LABS: Absolute Neutrophil Count 5.4 X10^3/uL (2.0-7.7); Basophil# 0.06 X10^3/uL; Eosinophil# 0.01 X10^3/uL; Hemoglobin 14.5 g/dL (13.0-16.5); Mean Corp Hgb Conc 34.5 g/dL (32-36); Mean Corpuscular Hgb 30.4 pg (27.0-32.0); Mean Corpuscular Volume 88.1 fL (80-94); Mean Platelet Vol. 9.5 fl (6.2-12.0); Monocyte# 1.04 X10^3/uL; NRBC Flagged by Analyzer 0 % (0-5); Neutrophil # 5.41 X10^3/uL (2.7-7.7); POSITIVE MORPHOLOGY YES; Platelet Count 333 K/mm3 (150-450); RBC Distribution Width CV 12.5 % (11.6-14.6); RBC Distribution Width SD 40.4 fl (35.1-43.9); Red Blood Count 4.77 M/mm3 (4.6-6.2); White Blood Count 8.1 K/mm3 (4.4-11.0)
[2024-01-28 20:46] LABS: Differential Indicated SCAN CRITERIA MET
[2024-01-28 20:48] LABS: ALB/GLOB Ratio 0.8 RATIO (0.9-2.4); AST(SGOT) 10 U/L (15-37); Alanine Aminotransfer ALT/SGPT 17 U/L (16-61); Albumin, Serum 3.5 g/dL (3.2-5.0); Alkaline Phosphatase 68 U/L (45-117); Anion Gap 8 (5-15); BUN 14 mg/dL (7-18); BUN/Creat Ratio 11.3 RATIO (10-20); Calcium,Total 9.5 mg/dL (8.5-10.1); Chloride 106 mmol/L (98-107); Creatinine, Serum 1.24 mg/dL (0.70-1.30); EST Glomerular Filtration Rate 62 mL/min (>60); Est Glom Filt Rate - Afr Amer 75 mL/min (>60); Estimated Creatinine Clearance 69.32 ml/min; Globulin 4.4 g/dL (2.2-4.2); Glucose 163 mg/dL (74-106); Potassium 3.4 mmol/L (3.5-5.1); Protein, Total 7.9 g/dL (6.4-8.2); Sodium Level 137 mmol/L (136-145)
[2024-01-28 21:23] LABS: Total Cells Counted 100 (MANUAL DIFF)
[2024-01-28 21:25] LABS: Pathologist Review May foll; Scan Smear per Review Criteria MANUAL DIFF
[2024-01-28 21:30] VITALS: BP 158/92; PULSE 110; RESP 18; O2SAT 97
[2024-01-28 21:35] LABS: Bacteria 0 SEEN /hpf (None Seen); Mucous, Urine 0 SEEN /hpf (<or=2+); Red Blood Cells-Urine 0 SEEN /hpf (0-5); Squamous Epithelial Cells - UA 0 SEEN /hpf (0-5); White Blood Cells 0 SEEN /hpf (0-5)
[2024-01-28 21:36] LABS: Color, Urine Yellow (Yellow); Glucose, Dipstick 1000 mg/dl (Normal); Ketone-Dipstick 50 mg/dl (Negative); Leukocyte Esterase-Dipstick Negative /ul (Negative); Nitrite-Dipstick Negative (Negative); Occult Blood-Urine 10 /ul (Negative); Protein-Dipstick 30 mg/dl (Negative); Urine Bilirubin Dipstick Negative (Negative); Urine Clarity Sl. Cloudy (Clear); Urine Urobilinogen Normal (Normal)
[2024-01-28 23:20] VITALS: BP 165/96; PULSE 108; RESP 23; TEMP 37.2; O2SAT 95
[2024-01-28] MEDS: SimETHICONE 80 MG Chewable Tablet PO (23:33)
--- NOTE | 2024-01-28 23:34 | ED.RN ---
The patients stated how do you get an ileus on a healthy person? this RN stated I'm not sure, I can ask the doctor to come back in and explain more if you want? The patients stated no he wrote us off. The patients also stated So he got dye so he can't take his metformin for 72 hours right? This RN stated I think so but I do not want to tell you wrong so let me go ask. This RN asked Leela vegetables cook and she verified with me. This RN went back into the room and the patients had her phone up. The patients asked to see the CT report and this RN pulled it up and read the official read that agreed with Dr Vargas and the patients took a picture on her phone. This RN stated you arent supposed to see this and the patients shrugged her shoulders.
--- NOTE | 2024-01-31 10:15 | ED.RN ---
1014- THIS RN CALLED PT PER REQUEST FOR A WELL CHECK. PT RESPONDS THAT IS IS DOING OKAY. DENIES NAUSEA/ VOMITING. PT REITERATES THAT HE IS DOING OKAY AND WILL COME BACK IF HE STARTS TO NOT FEEL WELL AGAIN.
[2024-01-31 10:20] LABS: Lymphocyte 24 % (19-41); Monocyte 8 % (0-10); Neutrophil-Band 7 % (0-5); Neutrophil-Segmented 61 % (47-70)
[2024-01-31 10:37] LABS: Absolute Lymphocyte Count 1.94 X10^3/uL (0.83-4.51); Lymphocyte # 1.94 X10^3/ul (0.83-4.51)
== END 2024-01-28 23:40 | disposition home or self-care (01) ==
PROVIDERS: Emergency Provider Emergency Medicine; PCP Family Medicine; Visit Provider Emergency Medicine
DX: K56.7 Ileus, unspecified (principal); E11.40 Type 2 diabetes mellitus with diabetic neuropathy, unspecified; R10.31 Right lower quadrant pain
CPT/HCPCS: 74177; 80053; 81001; 85025; 96374; 96375; 99284; Q9967; A4216; J2405

== ENCOUNTER 2024-03-12 10:05 | Inpatient (IN) | payer OTHER, SELFPAY ==
[2024-03-12] VITALS (14 sets, daily range): BP systolic 136–171; BP diastolic 80–104; PULSE 93–117; RESP 16–22; TEMP 36–37.3; O2SAT 95–98; BMI 31.1; BMI 31.7
[2024-03-12 10:38] LABS: Hematocrit 41.6 % (40-54); Hemoglobin 13.8 g/dL (13.0-16.5); Mean Corp Hgb Conc 33.2 g/dL (32-36); Mean Corpuscular Volume 90.4 fL (80-94); Mean Platelet Vol. 9.5 fl (6.2-12.0); Platelet Count 296 K/mm3 (150-450); RBC Distribution Width CV 12.7 % (11.6-14.6); RBC Distribution Width SD 41.6 fl (35.1-43.9); White Blood Count 15.8 K/mm3 (4.4-11.0)
[2024-03-12] MEDS: Piperacil/Tazobactam 4.5 GM in 0.9% Normal Saline (100mL MB+) 100 ML IV (10:40)
[2024-03-12] MEDS: Acetaminophen 500 MG Tablet 1000 MG PO (10:51)
[2024-03-12 10:52] LABS: Anion Gap 6 (5-15); BUN 18 mg/dL (7-18); BUN/Creat Ratio 13.6 RATIO (10-20); Calcium,Total 9.4 mg/dL (8.5-10.1); Chloride 107 mmol/L (98-107); Creatinine, Serum 1.32 mg/dL (0.70-1.30); EST Glomerular Filtration Rate 58 mL/min (>60); Est Glom Filt Rate - Afr Amer 70 mL/min (>60); Estimated Creatinine Clearance 64.46 ml/min; Glucose 234 mg/dL (74-106); Potassium 3.7 mmol/L (3.5-5.1); Sodium Level 138 mmol/L (136-145)
[2024-03-12] MEDS: Vancomycin HCl 2,000 MG in 0.9% Normal Saline (500mL Bag) 500 ML 250 MG IV (11:26)
[2024-03-12] MEDS: 0.9% Normal Saline (1000mL) 1,000 ML 125 ML IV ×2 (13:02→20:23)
[2024-03-12 16:05] LABS: Bedside Glucose 163 mg/dL (74-106)
[2024-03-12] MEDS: Bupivacaine Mpf 0.5% 30 ML VIAL (16:40)
[2024-03-12] MEDS: dilTIAZem CD 180 MG Capsule 360 MG PO (20:23)
[2024-03-12] MEDS: Piperacil/Tazobactam 3.375 GM in 0.9% Normal Saline (50mL MB+) 50 ML IV (20:23)
[2024-03-12] MEDS: Gabapentin 300 MG Capsule PO (20:25)
[2024-03-12] MEDS: Vancomycin HCl 1,250 MG in 0.9% Normal Saline (250mL Bag) 250 ML 167 MG IV (23:01)
[2024-03-12 23:22] LABS: Bedside Glucose 106 mg/dL (74-106)
[2024-03-13 04:00] VITALS: BP 167/88; PULSE 90; RESP 18; TEMP 36.8; O2SAT 96
[2024-03-13] MEDS: Acetaminophen 325 MG Tablet 650 MG PO ×3 (05:52→20:34)
[2024-03-13] MEDS: Piperacil/Tazobactam 3.375 GM in 0.9% Normal Saline (50mL MB+) 50 ML IV ×3 (06:30→20:22)
[2024-03-13 06:55] LABS: Bedside Glucose 94 mg/dL (74-106)
[2024-03-13 07:08] LABS: Absolute Lymphocyte Count 2.04 X10^3/uL (0.83-4.51); Absolute Neutrophil Count 7.2 X10^3/uL (2.0-7.7); Basophil# 0.07 X10^3/uL; Basophil% 0.7 % (0-1); Eosinophil# 0.15 X10^3/uL; Eosinophils% 1.5 % (0-5); Hematocrit 38.9 % (40-54); Hemoglobin 12.8 g/dL (13.0-16.5); Lymphocyte # 2.04 X10^3/ul (0.83-4.51); Lymphocyte % 19.8 % (19-41); Mean Corp Hgb Conc 32.9 g/dL (32-36); Mean Corpuscular Hgb 29.8 pg (27.0-32.0); Mean Corpuscular Volume 90.5 fL (80-94); Mean Platelet Vol. 9.6 fl (6.2-12.0); Monocyte# 0.76 X10^3/uL; Monocyte% 7.4 % (0-10); NRBC Flagged by Analyzer 0 % (0-5); Neutrophil # 7.23 X10^3/uL (2.7-7.7); Neutrophil % 70.2 % (47-70); Platelet Count 273 K/mm3 (150-450); RBC Distribution Width CV 12.9 % (11.6-14.6); RBC Distribution Width SD 42.5 fl (35.1-43.9); White Blood Count 10.3 K/mm3 (4.4-11.0)
[2024-03-13 07:39] LABS: Anion Gap 8 (5-15); BUN 14 mg/dL (7-18); BUN/Creat Ratio 16.8 RATIO (10-20); Chloride 108 mmol/L (98-107); Creatinine, Serum 0.83 mg/dL (0.70-1.30); EST Glomerular Filtration Rate 99 mL/min (>60); Est Glom Filt Rate - Afr Amer 120 mL/min (>60); Estimated Creatinine Clearance 103.56 ml/min; Glucose 99 mg/dL (74-106); Potassium 3.6 mmol/L (3.5-5.1); Sodium Level 138 mmol/L (136-145)
[2024-03-13 07:57] VITALS: BP 163/93; PULSE 95; RESP 18; TEMP 36.2; O2SAT 96
[2024-03-13] MEDS: Pentoxifylline 400 MG Tablet PO ×3 (08:02→17:39)
[2024-03-13] MEDS: buPROPion (XL) 300 MG TABLET.XL PO (08:02)
[2024-03-13] MEDS: Docusate Sodium 100 MG Capsule PO (08:03)
[2024-03-13] MEDS: Multivitamins,Therapeutic Tablet 1 TABLET PO (08:03)
[2024-03-13] MEDS: Pantoprazole Sodium 40 MG Tablet PO (08:03)
[2024-03-13] MEDS: Ascorbic Acid 500 MG Tablet PO (08:04)
[2024-03-13] MEDS: Empagliflozin 10 MG Tablet PO (08:04)
[2024-03-13] MEDS: Cholecalciferol (VIT D3) 25 MCG TABLET (1,000 UNITS) PO (08:04)
[2024-03-13] MEDS: Enoxaparin 40 MG/0.4 ML Syringe SC (08:04)
[2024-03-13 09:59] LABS: Hemoglobin A1c 6.8 % (3.8-5.6)
[2024-03-13] MEDS: Vancomycin HCl 1,250 MG in 0.9% Normal Saline (250mL Bag) 250 ML 167 MG IV (11:17)
[2024-03-13 12:18] LABS: Bedside Glucose 87 mg/dL (74-106)
[2024-03-13] MEDS: Potassium Chloride Oral Tablet 20 MEQ 40 MEQ PO (13:29)
[2024-03-13 15:57] VITALS: BP 148/96; PULSE 89; RESP 18; TEMP 36.3; O2SAT 98
[2024-03-13 16:48] LABS: Bedside Glucose 119 mg/dL (74-106)
[2024-03-13] MEDS: oxyCODONE 5 MG Tablet PO (20:33)
[2024-03-13] MEDS: dilTIAZem CD 180 MG Capsule 360 MG PO (20:33)
[2024-03-13] MEDS: Gabapentin 300 MG Capsule PO (20:33)
[2024-03-13 20:42] VITALS: BP 159/84; PULSE 97; RESP 16; TEMP 36.9; O2SAT 97
[2024-03-13 21:19] LABS: Bedside Glucose 281 mg/dL (74-106)
[2024-03-14] MEDS: Vancomycin HCl 1,500 MG in 0.9% Normal Saline (500mL Bag) 500 ML 250 MG IV ×2 (00:22→11:26)
[2024-03-14] MEDS: Piperacil/Tazobactam 3.375 GM in 0.9% Normal Saline (50mL MB+) 50 ML IV (06:23)
[2024-03-14 06:32] VITALS: BP 146/96; PULSE 71; RESP 16; TEMP 36.3; O2SAT 98
[2024-03-14 06:53] LABS: Bedside Glucose 125 mg/dL (74-106)
[2024-03-14 06:59] LABS: Absolute Lymphocyte Count 2.25 X10^3/uL (0.83-4.51); Absolute Neutrophil Count 4.4 X10^3/uL (2.0-7.7); Basophil# 0.06 X10^3/uL; Basophil% 0.8 % (0-1); Eosinophil# 0.26 X10^3/uL; Eosinophils% 3.4 % (0-5); Hemoglobin 12.6 g/dL (13.0-16.5); Lymphocyte # 2.25 X10^3/ul (0.83-4.51); Lymphocyte % 29.4 % (19-41); Mean Corp Hgb Conc 33.2 g/dL (32-36); Mean Corpuscular Hgb 29.6 pg (27.0-32.0); Mean Corpuscular Volume 89.2 fL (80-94); Mean Platelet Vol. 9.6 fl (6.2-12.0); Monocyte# 0.67 X10^3/uL; Monocyte% 8.8 % (0-10); NRBC Flagged by Analyzer 0 % (0-5); Neutrophil # 4.38 X10^3/uL (2.7-7.7); Neutrophil % 57.2 % (47-70); Platelet Count 323 K/mm3 (150-450); RBC Distribution Width CV 12.7 % (11.6-14.6); RBC Distribution Width SD 41.2 fl (35.1-43.9); Red Blood Count 4.26 M/mm3 (4.6-6.2); White Blood Count 7.7 K/mm3 (4.4-11.0)
[2024-03-14] MEDS: Multivitamins,Therapeutic Tablet 1 TABLET PO (07:59)
[2024-03-14] MEDS: Cholecalciferol (VIT D3) 25 MCG TABLET (1,000 UNITS) PO (07:59)
[2024-03-14] MEDS: Pentoxifylline 400 MG Tablet PO ×2 (07:59→11:29)
[2024-03-14] MEDS: Empagliflozin 10 MG Tablet PO (07:59)
[2024-03-14] MEDS: Ascorbic Acid 500 MG Tablet PO (07:59)
[2024-03-14] MEDS: Pantoprazole Sodium 40 MG Tablet PO (07:59)
[2024-03-14] MEDS: buPROPion (XL) 300 MG TABLET.XL PO (08:00)
[2024-03-14] MEDS: Enoxaparin 40 MG/0.4 ML Syringe SC (08:00)
[2024-03-14 08:09] VITALS: BP 168/92; PULSE 84; RESP 16; TEMP 37.1; O2SAT 99
[2024-03-14 08:17] LABS: Anion Gap 6 (5-15); BUN 11 mg/dL (7-18); BUN/Creat Ratio 11.9 RATIO (10-20); Calcium,Total 9.1 mg/dL (8.5-10.1); Chloride 110 mmol/L (98-107); Creatinine, Serum 0.92 mg/dL (0.70-1.30); EST Glomerular Filtration Rate 88 mL/min (>60); Est Glom Filt Rate - Afr Amer 106 mL/min (>60); Estimated Creatinine Clearance 93.43 ml/min; Glucose 131 mg/dL (74-106); Potassium 3.7 mmol/L (3.5-5.1); Sodium Level 140 mmol/L (136-145)
[2024-03-14] MEDS: Acetaminophen 325 MG Tablet 650 MG PO (09:35)
[2024-03-14] MEDS: oxyCODONE 5 MG Tablet PO (09:35)
[2024-03-14 11:51] LABS: Bedside Glucose 118 mg/dL (74-106)
[2024-03-14 12:23] VITALS: BP 154/98; PULSE 80; RESP 18; TEMP 37.1; O2SAT 98
[2024-03-14 13:56] VITALS: BP 149/90; PULSE 81; RESP 16; TEMP 36.8; O2SAT 96
== END 2024-03-14 14:00 | disposition home or self-care (01) | DRG 617 ==
LOC: ED 10:50 → MS3 11:57
PROVIDERS: Podiatrist; Admitting Provider Student in an Organized Health Care Education/Training Program; Emergency Provider Emergency Medicine; PCP Family Medicine; Visit Provider Internal Medicine
PROC: 0Y6Q0Z1 Detachment at Left 1st Toe, High, Open Approach (ICD-10-PCS; principal; 2024-03-12 16:00)
DX: E11.621 Type 2 diabetes mellitus with foot ulcer (principal); E11.52 Type 2 diabetes mellitus with diabetic peripheral angiopathy with gangrene; L97.424 Non-pressure chronic ulcer of left heel and midfoot with necrosis of bone; M86.8X7 Other osteomyelitis, ankle and foot; L03.116 Cellulitis of left lower limb; I10 Essential (primary) hypertension; G25.81 Restless legs syndrome; E11.628 Type 2 diabetes mellitus with other skin complications; N17.9 Acute kidney failure, unspecified; E11.42 Type 2 diabetes mellitus with diabetic polyneuropathy; E11.69 Type 2 diabetes mellitus with other specified complication; Z89.411 Acquired absence of right great toe; B95.2 Enterococcus as the cause of diseases classified elsewhere; Z79.84 Long term (current) use of oral hypoglycemic drugs; Z79.85 Long-term (current) use of injectable non-insulin antidiabetic drugs; Z79.899 Other long term (current) drug therapy
CPT/HCPCS: 36415; 73630; 80048; 80202; 82962; 83036; 85025; 85027; 87015; 87040; 87070; 87075; 87077; 87102; 87116; 87186; 87205; 87206; 88305; 88311; 93005; 93923; 99284; J7030; J7040; J7050; A4216

== ENCOUNTER → 2024-04-27 | Outpatient (CLI) | payer OTHER, SELFPAY | END | disposition home or self-care (01) | LOC: LABSPEC 15:24 | PROVIDERS: PCP Family Medicine; Referring Provider Podiatrist; Visit Provider Podiatrist | DX: L03.032 Cellulitis of left toe (principal) | CPT/HCPCS: 87070; 87077; 87186; 87205 ==

== ENCOUNTER → 2024-05-05 | Outpatient (CLI) | payer OTHER, SELFPAY ==
[2024-05-05 10:42] LABS: Absolute Lymphocyte Count 2.36 X10^3/uL (0.83-4.51); Absolute Neutrophil Count 5.1 X10^3/uL (2.0-7.7); Basophil# 0.04 X10^3/uL; Basophil% 0.5 % (0-1); Eosinophil# 0.25 X10^3/uL; Hematocrit 43.1 % (40-54); Lymphocyte # 2.36 X10^3/ul (0.83-4.51); Lymphocyte % 28.4 % (19-41); Mean Corp Hgb Conc 32.5 g/dL (32-36); Mean Corpuscular Hgb 28.9 pg (27.0-32.0); Mean Platelet Vol. 9.7 fl (6.2-12.0); Monocyte# 0.59 X10^3/uL; Monocyte% 7.1 % (0-10); NRBC Flagged by Analyzer 0 % (0-5); Neutrophil # 5.05 X10^3/uL (2.7-7.7); Neutrophil % 60.6 % (47-70); Platelet Count 326 K/mm3 (150-450); RBC Distribution Width CV 13.1 % (11.6-14.6); RBC Distribution Width SD 42.5 fl (35.1-43.9); Red Blood Count 4.84 M/mm3 (4.6-6.2); White Blood Count 8.3 K/mm3 (4.4-11.0)
[2024-05-05 11:07] LABS: ALB/GLOB Ratio 0.8 RATIO (0.9-2.4); AST(SGOT) 14 U/L (15-37); Alanine Aminotransfer ALT/SGPT 25 U/L (16-61); Albumin, Serum 3.6 g/dL (3.2-5.0); Alkaline Phosphatase 74 U/L (45-117); Anion Gap 5 (5-15); BUN 20 mg/dL (7-18); BUN/Creat Ratio 16.9 RATIO (10-20); Calcium,Total 9.7 mg/dL (8.5-10.1); Chloride 107 mmol/L (98-107); Creatinine, Serum 1.18 mg/dL (0.70-1.30); EST Glomerular Filtration Rate 66 mL/min (>60); Est Glom Filt Rate - Afr Amer 80 mL/min (>60); Globulin 4.4 g/dL (2.2-4.2); Glucose 168 mg/dL (74-106); Potassium 4.6 mmol/L (3.5-5.1); Sodium Level 138 mmol/L (136-145)
== END | disposition home or self-care (01) ==
LOC: MTLAB 08:45
PROVIDERS: PCP Family Medicine; Referring Provider Podiatrist; Visit Provider Podiatrist
DX: L03.032 Cellulitis of left toe (principal)
CPT/HCPCS: 36415; 80053; 85025

== ENCOUNTER → 2024-08-25 | Outpatient (CLI) | payer OTHER, SELFPAY ==
[2024-08-25 11:06] LABS: Hemoglobin A1c 7.5 % (<=5.6)
[2024-08-25 11:07] LABS: ALB/GLOB Ratio 1.2 RATIO (0.9-2.4); AST(SGOT) 21 U/L (<=37); Alanine Aminotransfer ALT/SGPT 19 U/L (<=46); Alkaline Phosphatase 73 U/L (40-129); Anion Gap 11 (5-15); BUN 19 mg/dL (4-19); BUN/Creat Ratio 16.4 RATIO (10-20); Calcium,Total 9.5 mg/dL (7.6-11.0); Carbon Dioxide 21.7 mmol/L (21.0-32.0); Chloride 103 mmol/L (98-108); Cholesterol 203 mg/dL (<=200); Creatinine, Serum 1.14 mg/dL (0.70-1.20); EST Glomerular Filtration Rate 72 (>60); Globulin 3.4 g/dL (2.2-4.2); Glucose 130 mg/dL (70-99); High Density Lipoprotein 45 mg/dL; Low Density Lipoprotein Calc. 139 mg/dL; Potassium 4.3 mmol/L (3.3-5.1); Protein, Total 7.4 g/dL (5.9-8.4); Sodium Level 136 mmol/L (133-145); Total Bilirubin 0.48 mg/dL (0.00-1.30); Triglycerides 93 mg/dL; Very Low Density Lipoprotein 19 mg/dL (5-40); cholesterol:hdl ratio screen 4.51
== END | disposition home or self-care (01) ==
LOC: MTLAB 08:33
PROVIDERS: PCP Family Medicine; Referring Provider Family Medicine; Visit Provider Family Medicine
DX: E11.9 Type 2 diabetes mellitus without complications (principal)
CPT/HCPCS: 36415; 80053; 80061; 83036